=== PATIENT | female | born 1960 | race Caucasian/White ===

== ENCOUNTER 2016-06-15 19:10 | Emergency (ER) | payer OTHER ==
[2016-06-15 19:21] VITALS: TEMP 98.8; BMI 26.2
[2016-06-15] MEDS ORDERED: RANITIDINE HCL 150 MG TABLET (FP) PO ONE (20:30)
[2016-06-15] MEDS ORDERED: traMADol HCL 50 MG TABLET PO ONE (20:30)
[2016-06-15] MEDS ORDERED: MAG HYDROX/AL HYDROX/SIMETH 30 ML UNIT-DOSE CUP PO ONE (20:30)
[2016-06-15] MEDS ORDERED: ACETAMINOPHEN 325 MG TABLET (FP) PO ONE (20:30)
--- NOTE | 2016-06-15 20:53 | PDOC ---
History of Present Illness - General History Source: Patient, Family Exam Limitations: No Limitations <Austyn Maldonado - Last Filed: 06/15/16 21:36> - History of Present Illness Initial Comments: 06/15/16 21:52 The patient is a 55 year old female with history of hypertension who presents to the ED complaining of 1 day of right clavicular pain, worse with rotating her neck. She states she took Diclofenac yesterday but discontinued it due to epigastric discomfort. The patient denies chest pain, shortness of breath, or palpitations. She denies fever, chills, or recent illness. She denies nausea, vomiting, or diarrhea. <Jovita Macedo - Last Filed: 06/15/16 21:55> - General Chief Complaint: Pain, Acute Stated Complaint: NECK PAIN Time Seen by Provider: 06/15/16 19:26 Past History - Past Medical History HTN: Yes - Psycho/Social/Smoking Cessation Hx Suicidal Ideation: No Smoking History: Never smoked <Austyn Maldonado - Last Filed: 06/15/16 21:36> <Jovita Macedo - Last Filed: 06/15/16 21:55> - Past Medical History Allergies/Adverse Reactions: Allergies Allergy/AdvReac Type Severity Reaction Status Date / Time aspirin AdvReac Verified 06/15/16 19:22 Home Medications: Ambulatory Orders Mag Hydrox/Al Hydrox/Simeth [Mylanta Suspension -] 30 ml PO Q6H PRN #1 bottle Ranitidine HCl [Zantac] 150 mg PO BID PRN #14 tablet 06/15/16 Tramadol HCl 50 mg PO Q6H PRN #20 tablet MDD 4 06/15/16 Review of Systems - Review of Systems Able to Perform ROS?: Yes Comments:: 06/15/16 21:54 GENERAL/CONSTITUTIONAL: No fever or chills. No weakness. HEAD, EYES, EARS, NOSE AND THROAT: No change in vision. No ear pain or discharge. No sore throat CARDIOVASCULAR: No chest pain or shortness of breath. RESPIRATORY: No cough, wheezing, or hemoptysis. GASTROINTESTINAL: No nausea, vomiting, diarrhea or constipation. GENITOURINARY: No dysuria, frequency, or change in urination. MUSCULOSKELETAL: R clavicular pain. No other joint or muscle swelling or pain. No back pain. SKIN: No rash NEUROLOGIC: No headache, vertigo, loss of consciousness, or change in strength/ sensation. ENDOCRINE: No increased thirst. No abnormal weight change. HEMATOLOGIC/LYMPHATIC: No anemia, easy bleeding, or history of blood clots. ALLERGIC/IMMUNOLOGIC: No hives or skin allergy. <Jovita Macedo - Last Filed: 06/15/16 21:55> *Physical Exam - Vital Signs Last Vital Signs Temp Pulse Resp BP Pulse Ox 98.8 F 67 18 118/79 98 06/15/16 19:16 06/15/16 19:16 06/15/16 19:16 06/15/16 19:16 06/15/16 19:16 <Austyn Maldonado - Last Filed: 06/15/16 21:36> - Vital Signs Last Vital Signs Temp Pulse Resp BP Pulse Ox 98.8 F 67 18 118/79 98 06/15/16 19:16 06/15/16 19:16 06/15/16 19:16 06/15/16 19:16 06/15/16 19:16 - Physical Exam Comments: 06/15/16 21:54 GENERAL: Awake, alert, and fully oriented, in no acute distress HEAD: No signs of trauma EYES: PERRLA, EOMI, sclera anicteric, conjunctiva clear ENT: Auricles normal inspection, hearing grossly normal, nares patent, oropharynx clear without exudates. Moist mucosa NECK: Normal ROM, supple, no lymphadenopathy, JVD, or masses LUNGS: Breath sounds equal, clear to auscultation bilaterally. No wheezes, and no crackles HEART: Tenderness to palpation of the right proximal clavicle. Regular rate and rhythm, normal S1 and S2, no murmurs, rubs or gallops ABDOMEN: Soft, nontender, normoactive bowel sounds. No guarding, no rebound. No masses EXTREMITIES: Normal range of motion, no edema. No clubbing or cyanosis. No cords, erythema, or tenderness NEUROLOGICAL: Cranial nerves II through XII grossly intact. Normal speech, normal gait SKIN: Warm, Dry, normal turgor, no rashes or lesions noted. <Jovita Macedo - Last Filed: 06/15/16 21:55> ED Treatment Course - Medications Given in the ED: ED Medications Discontinued Medications Generic Name Dose Route Start Last Admin Trade Name Tommy PRN Reason Stop Dose Admin Acetaminophen 650 mg 06/15/16 20:30 06/15/16 20:50 Tylenol - PO 06/15/16 20:31 650 mg ONCE ONE Administration Al Hydroxide/Mg Hydroxide 30 ml 06/15/16 20:30 06/15/16 20:50 Mylanta Oral Suspension - PO 06/15/16 20:31 30 ml ONCE ONE Administration Ranitidine HCl 150 mg 06/15/16 20:30 06/15/16 20:50 Zantac - PO 06/15/16 20:31 150 mg ONCE ONE Administration Tramadol HCl 50 mg 06/15/16 20:30 06/15/16 20:50 Ultram - PO 06/15/16 20:31 50 mg ONCE ONE Administration <Jovita Macedo - Last Filed: 06/15/16 21:55> Medical Decision Making - Medical Decision Making 06/15/16 20:34 A portion of this note was documented by scribe services under my direction. I have reviewed the details of the note, within reason, and agree with the documentation with the following case summary and management plan written by me. Patient treated in the ED. Nursing notes are reviewed and incorporated into the medical decision-making. Vital signs reviewed. Peripheral IV access obtained by the nurse, laboratory studies are drawn and sent, reviewed and interpreted by myself. Vital Signs Temp Pulse Resp BP Pulse Ox 98.8 F 67 18 118/79 98 06/15/16 19:16 06/15/16 19:16 06/15/16 19:16 06/15/16 19:16 06/15/16 19:16 55 year old female with history of HTN presents with proximal clavical pain. Pt reports that she woke up with pain that was reproducible with palpation and movement. Denies shortness of breath, diaphoresis, vomiting. Reports turning neck intermittently causes pain. Has taken NSAIDs with minimal relief. This appears consistent with musculoskeltal pain. Patient reports that she had acid reflux with NSAIDS. will trial tramadol and GERD medications and reassess. 06/15/16 21:31 Patient reports feeling better with the medications. I discussed the physical exam findings, ancillary test results and final diagnoses with the patient. I answered all of the patient's questions. The patient was satisfied with the care received and felt comfortable with the discharge plan and treatment plan. The patient will call their primary care physician within 24 hours to arrange follow-up and will return to the Emergency Department with any new, persistant or worsening symptoms. <Austyn Maldonado - Last Filed: 06/15/16 21:36> *DC/Admit/Observation/Transfer - Discharge Dispostion Admit: No <Austyn Maldonado - Last Filed: 06/15/16 21:36> - Attestations Scribe Attestion: 06/15/16 21:55 Documentation prepared by Jovita Macedo, acting as lead medical technologist for Austyn Maldonado MD. <Jovita Macedo - Last Filed: 06/15/16 21:55> Diagnosis at time of Disposition: Pain of right clavicle - Discharge Dispostion Disposition: HOME Condition at time of disposition: Improved - Prescriptions Prescriptions: Mag Hydrox/Al Hydrox/Simeth [Mylanta Suspension -] 30 ml PO Q6H PRN #1 bottle PRN Reason: Abdominal Pain Tramadol HCl 50 mg PO Q6H PRN #20 tablet MDD 4 PRN Reason: Pain Ranitidine HCl [Zantac] 150 mg PO BID PRN #14 tablet PRN Reason: Abdominal Pain - Referrals Referrals: STAFF,NOT ON [Primary Care Provider] - - Patient Instructions Printed Discharge Instructions: DI for Musculoskeletal Pain Additional Instructions: You may take 50 mg tramadol every 6 hours as needed for pain. This medicine may cause more acid reflux. Take the zantac and/or maalox as prescribed as needed. It may take several days before your symptoms improve. Print Language: MALTESE
[2016-06-15] MEDS ORDERED: ACETAMINOPHEN 325 MG TABLET (FP) ONE (20:55)
[2016-06-15] MEDS ORDERED: traMADol HCL 50 MG TABLET ONE (20:56)
[2016-06-15] MEDS ORDERED: MAG HYDROX/AL HYDROX/SIMETH 30 ML UNIT-DOSE CUP ONE (20:56)
[2016-06-15] MEDS ORDERED: RANITIDINE HCL 150 MG TABLET (FP) ONE (20:56)
[2016-06-15 21:56] VITALS: BP 125/65; PULSE 69
== END 2016-06-15 21:56 | disposition home or self-care (01) ==
LOC: JER 19:10
DX: M25.511 Pain in right shoulder (principal)
CPT/HCPCS: 99282-25

== ENCOUNTER 2016-11-23 02:22 | Inpatient (IN) | payer OTHER ==
--- NOTE | 2016-11-23 02:52 | PDOC ---
History of Present Illness - General Chief Complaint: SIRS, Suspected/Possible Stated Complaint: FEVER,PAIN Time Seen by Provider: 11/23/16 02:34 Past History - Past Medical History Allergies/Adverse Reactions: Allergies Allergy/AdvReac Type Severity Reaction Status Date / Time aspirin AdvReac Verified 11/23/16 02:39 Home Medications: Ambulatory Orders Atenolol/Chlorthalidone [Tenoretic 100 Tablet] 1 each PO DAILY 11/23/16 Metformin HCl 850 mg PO DAILY 11/23/16 HTN: Yes - Psycho/Social/Smoking Cessation Hx Suicidal Ideation: No Smoking History: Never smoked Have you smoked in the past 12 months: No Information on smoking cessation initiated: No Hx Alcohol Use: No Drug/Substance Use Hx: No *Physical Exam - Vital Signs Last Vital Signs Temp Pulse Resp BP Pulse Ox 102.6 F H 84 20 115/85 96 11/23/16 02:39 11/23/16 02:39 11/23/16 02:39 11/23/16 02:39 11/23/16 02:39 ED Treatment Course - LABORATORY CBC & Chemistry Diagram: 11/23/16 03:31 11/23/16 03:31 Medical Decision Making - Medical Decision Making 11/23/16 06:51 Pt comes with fever, joint pains, rash. Traveling in for the past 2 months. States that she has been feeling worse for the past 3 days. She still has UA pending, and peripheral blood smear pending. We sent off zika serology testing, but that will be sent out. Pt has hypokalemia on labs. She reports decreased appetite. She will be hydrated and teated with analgesics and she will be signed out to the day team, who can consult with ID. CXRs normal *DC/Admit/Observation/Transfer Diagnosis at time of Disposition: Fever, Polyarthritis, Nausea, Rash - Discharge Dispostion Condition at time of disposition: Guarded
[2016-11-23] MEDS ORDERED: ACETAMINOPHEN 325 MG TABLET (FP) PO ONE (03:12)
[2016-11-23] MEDS ORDERED: ACETAMINOPHEN 325 MG TABLET (FP) ONE (03:18)
--- NOTE | 2016-11-23 03:34 | PDOC ---
History of Present Illness - General Chief Complaint: SIRS, Suspected/Possible Stated Complaint: FEVER,PAIN Time Seen by Provider: 11/23/16 02:34 History Source: Patient Exam Limitations: Language Barrier - History of Present Illness Initial Comments: 11/23/16 03:25 Patient is a 56F with history of HTN here today complaining of fever for the past month. She has spent the last 3 months in the [place], returning today. She has been getting about one fever per day. She also has associated rash on her face and arms. She also has joint pain in her knees, wrists, and elbows. She denies chest pain, shortness of breath, cough, headache , neck pain, and dysuria. She endorses decreased PO intake and an unknown amount of unintentional weight loss. Past History - Past Medical History Allergies/Adverse Reactions: Allergies Allergy/AdvReac Type Severity Reaction Status Date / Time aspirin AdvReac Verified 11/23/16 02:39 Home Medications: Ambulatory Orders Atenolol/Chlorthalidone [Tenoretic 100 Tablet] 1 each PO DAILY 11/23/16 Metformin HCl 850 mg PO DAILY 11/23/16 HTN: Yes - Psycho/Social/Smoking Cessation Hx Suicidal Ideation: No Smoking History: Never smoked Have you smoked in the past 12 months: No Information on smoking cessation initiated: No Hx Alcohol Use: No Drug/Substance Use Hx: No Review of Systems - Review of Systems Comments:: 11/23/16 03:34 GENERAL/CONSTITUTIONAL: Positive for fevers, chills and weakness HEAD, EYES, EARS, NOSE AND THROAT: No change in vision. No sore throat. CARDIOVASCULAR: No chest pain or shortness of breath RESPIRATORY: No cough, wheezing, or hemoptysis. GASTROINTESTINAL: Positive for nausea. Negative for vomiting, diarrhea or constipation. GENITOURINARY: No dysuria, frequency, or change in urination. MUSCULOSKELETAL: Positive for knee, wrist, and elbow pain SKIN: Positive for rash on face, and arms NEUROLOGIC: No headache, loss of consciousness, or change in strength/sensation. ENDOCRINE: Positive for abnormal weight loss ALLERGIC/IMMUNOLOGIC: Positive for possible skin allergy resulting in rash *Physical Exam - Vital Signs Last Vital Signs Temp Pulse Resp BP Pulse Ox 102.6 F H 84 20 115/85 96 11/23/16 02:39 11/23/16 02:39 11/23/16 02:39 11/23/16 02:39 11/23/16 02:39 - Physical Exam Comments: 11/23/16 03:36 GENERAL: Awake, alert, and fully oriented, in no acute distress HEAD: No signs of trauma, normocephalic, atraumatic, malar rash EYES: PERRLA, EOMI, sclera mildy icteric, conjunctiva red ENT: Auricles normal inspection, hearing grossly normal, nares patent, oropharynx clear without exudates. Moist mucosa NECK: Normal ROM, supple, nontender to palpation, touches chin to chest without pain LUNGS: No distress, speaks full sentences, clear to auscultation bilaterally HEART: Regular rate and rhythm, normal S1 and S2, no murmurs, rubs or gallops, peripheral pulses normal and equal bilaterally. ABDOMEN: Soft, nontender, normoactive bowel sounds. No guarding, no rebound. No masses EXTREMITIES: Rash on dorsal aspect of both forearms NEUROLOGICAL: Cranial nerves II through XII grossly intact. Normal speech, no focal sensorimotor deficits SKIN: Warm, Dry, normal turgor ED Treatment Course - LABORATORY CBC & Chemistry Diagram: 11/23/16 03:31 11/23/16 03:31 - RADIOLOGY Radiology Studies Ordered: Category Date Time Status CHEST X-RAY PORTABLE* [RAD] Stat Radiology 11/23/16 03:08 Ordered Medical Decision Making - Medical Decision Making 11/23/16 03:38 Patient is a 56F with history of HTN here today complaining of intermittent fever for the past month. Recent travel to area with zika and malaria for an extended period. Febrile in the ED, vital signs otherwise stable and normal. Differential diagnosis is broad, and includes, but is not limited to: zika, malaria, uti, pneumonia. Will evaluate with labs, cxr, ecg. Will treat with tylenol. 11/23/16 04:18 EKG showed normal sinus rhythm, normal rate, normal axis. No st elevations, but did show ST inversions in II, II, V3-V5. Trop added on to labs. 11/23/16 07:01 Labs show liver enzyme elevations, K - 3.1. CXR shows no acute cardiopulmonary process. Signed out to Dr Petty. *DC/Admit/Observation/Transfer Diagnosis at time of Disposition: Fever
[2016-11-23 03:51] LABS: BASOPHIL 0.1 % (0-2.0); EOSINOPHIL 0.5 % (0-4.5); MCH 30.7 pg (25.7-33.7); MCHC 35.5 g/dl (32.0-36.0); MEAN CELL VOLUME 86.5 fl (80-96); MEAN PLT VOLUME 8.3 fl (7.5-11.1); NEUTROPHILS 77.3 % (42.8-82.8); PLATELET COUNT 277 K/MM3 (134-434); RDW 13.3 % (11.6-15.6); WHITE BLOOD COUNT 8.7 K/mm3 (4.0-10.0)
[2016-11-23 04:07] LABS: INR 1.36 (0.82-1.09); PROTHROMBIN TIME (PATIENT) 15.1 SEC (9.98-11.88)
[2016-11-23 04:21] LABS: ALBUMIN 3.6 g/dl (3.4-5.0); ALK PHOS 76 U/L (45-117); ANION GAP 13 (8-16); BILIRUBIN,TOTAL 0.8 mg/dL (0.2-1.0); CALCIUM 8.7 mg/dL (8.5-10.1); CO2 27 mmol/L (21-32); CREATININE 0.9 mg/dL (0.55-1.02); GLUCOSE,RANDOM 125 mg/dL (74-106); SGOT/AST 64 U/L (15-37); SGPT/ALT 115 U/L (12-78); TOT PROT 7.9 g/dl (6.4-8.2)
[2016-11-23 04:34] LABS: CPK 68 IU/L (26-192); TROPONIN I < 0.02 ng/ml (0.00-0.05)
[2016-11-23] MEDS ORDERED: MAGNESIUM SULF 50% (8.12 MEQ/2 ML-1 GM VIAL) IVPB ONE (04:46)
[2016-11-23] MEDS ORDERED: POTASSIUM CHLORIDE TABS 20 MEQ TABLET.ER (FP) PO ONE ×3 (04:46→05:36)
[2016-11-23] MEDS ORDERED: MAGNESIUM SULF 50% (8.12 MEQ/2 ML-1 GM VIAL) ONE (05:24)
[2016-11-23] MEDS ORDERED: SODIUM CHLORIDE 0.9% 500 ML INFUS.BAG IV ONE (06:48)
[2016-11-23] MEDS ORDERED: ACETAMINOPHEN 1000 MG/100 ML VIAL (NON FORMULARY) IVPB ONE (06:48)
[2016-11-23] MEDS ORDERED: ACETAMINOPHEN INJECTION 100 ML IVPB ONE (06:48)
--- NOTE | 2016-11-23 07:07 | PDOC ---
*Physical Exam - Vital Signs Patient signed out to me by excellent Dr. Waldo Shaw. 56 YOF returned in the past few days from three months in the [place], p/w fever occurring daily , polyarthritis, rash on face, arms, and trunk, decreased appetite, nausea, small weight loss. After sign out patient is noting pain in her fingers as well now. Last Vital Signs Temp Pulse Resp BP Pulse Ox 100.0 F H 79 18 114/73 100 11/23/16 06:34 11/23/16 06:34 11/23/16 06:34 11/23/16 06:34 11/23/16 06:34 11/23/16 09:37 - Physical Exam General Appearance: Yes: Nourished, Other (initially sleeping on left side in hospital bed but awakens easily). No: Apparent Distress HEENT: positive: EOMI, Normal Voice, Pharyngeal Erythema, Hearing Grossly Normal , Other. negative: Scleral Icterus (R), Scleral Icterus (L), Nasal Congestion Neck: positive: Trachea midline, Supple. negative: Tender, Rigid Respiratory/Chest: positive: Lungs Clear, Normal Breath Sounds. negative: Respiratory Distress, Crackles, Rhonchi, Stridor, Wheezing Cardiovascular: positive: Regular Rhythm, Regular Rate. negative: Murmur Gastrointestinal/Abdominal: positive: Normal Bowel Sounds, Soft, Other (faint red diffuse patchy rash). negative: Tender, Organomegaly, Pulsatile Mass, Guarding Musculoskeletal: positive: Normal Inspection. negative: Decreased Range of Motion, Vertebral Tenderness Extremity: positive: Normal Capillary Refill, Normal Inspection, Normal Range of Motion, Other (pain on ROM of fingers bilaterally, right wrist, and right elbow). negative: Tender, Cyanosis Integumentary: positive: Normal Color, Dry, Warm, Erythema (3x3cm area of erythema to right distal forearm (Pt states she had allergy testing here)), Rash (faint red patchy rash diffusely on abdomen). negative: Jaundice, Bruising Neurologic: positive: public health II-XII NML intact, Fully Oriented, Alert, Normal Mood/ Affect, Normal Response, Motor Strength /5 ED Treatment Course - LABORATORY CBC & Chemistry Diagram: 11/24/16 06:00 11/24/16 06:00 - ADDITIONAL ORDERS Additional order review: Laboratory Results 11/23/16 11/23/16 11/23/16 03:31 03:31 03:31 INR 1.36 H Sodium 136 Potassium 3.1 L Chloride 96 L Carbon Dioxide 27 Anion Gap 13 BUN 9 Creatinine 0.9 Creat Clearance w eGFR > 60 Random Glucose 125 H Calcium 8.7 Total Bilirubin 0.8 AST 64 H ALT 115 H Alkaline Phosphatase 76 Creatine Kinase 68 Troponin I < 0.02 Total Protein 7.9 Albumin 3.6 11/23/16 03:31 RBC 4.33 MCV 86.5 MCHC 35.5 RDW 13.3 MPV 8.3 Neutrophils % 77.3 Lymphocytes % 12.8 Monocytes % 9.3 Eosinophils % 0.5 Basophils % 0.1 - Medications Given in the ED: ED Medications Discontinued Medications Generic Name Dose Route Start Last Admin Trade Name Tommy PRN Reason Stop Dose Admin Acetaminophen 650 mg 11/23/16 03:12 11/23/16 03:18 Tylenol - PO 11/23/16 03:13 650 mg ONCE ONE Administration Acetaminophen 1,000 mg 11/23/16 06:48 11/23/16 06:54 Ofirmev Injection - IVPB 11/23/16 06:49 1,000 mg ONCE ONE Administration Magnesium Sulfate 2 gm 11/23/16 04:46 11/23/16 05:40 Magnesium Sulfate IVPB 11/23/16 04:47 2 gm ONCE ONE Administration Potassium Chloride 40 meq 11/23/16 04:46 11/23/16 05:40 K-Dur - PO 11/23/16 04:47 40 meq ONCE ONE Administration Sodium Chloride 1,000 ml 11/23/16 06:48 11/23/16 06:54 Normal Saline - IV 11/23/16 06:49 1,000 ml ONCE ONE Administration Medical Decision Making - Medical Decision Making 56 YOF [place] with 1 month of daily fever, now rash, polyarthritis, decreased appetite. DDX includes SLE, zika, malaria, typhoid/paratyphoid, chikunguya, viral exanthum , unlikely allergic reaction. Will consult this AM with ID, possible admission to obs as Pt is not taking PO and has recurrent fever in ED. After Tylenol Pt reports improved fever, still with articular pain now in fingers. Pt states that she could eat something and is given a sandwich. UA returns with 1+ blood and 1+ leukocyte esterase. Page is placed to ID. 11/23/16 12:30 Dr. Tello kindly consults in the ED and does recommend IVF and admission. ID will follow during her admission. *DC/Admit/Observation/Transfer Diagnosis at time of Disposition: Polyarthritis, Nausea, Rash Fever Qualifiers: Fever type: unspecified Qualified Code(s): R50.9 - Fever, unspecified - Discharge Dispostion Condition at time of disposition: Guarded Admit: Yes - Referrals
--- NOTE | 2016-11-23 09:16 | EKG ---
Test Reason : Blood Pressure : / mmHG Vent. Rate : 082 BPM Atrial Rate : 082 BPM P-R Int : 150 ms QRS Dur : 076 ms QT Int : 362 ms P-R-T Axes : 045 003 000 degrees QTc Int : 422 ms NORMAL SINUS RHYTHM POSSIBLE LEFT ATRIAL ENLARGEMENT LEFT VENTRICULAR HYPERTROPHY ABNORMAL ECG NO PREVIOUS ECGS AVAILABLE Confirmed by MD BETH, KATIA ([id number]) on 11/23/2016 9:16:41 AM Referred By: Confirmed By:KATIA CAMPOS MD
[2016-11-23 09:44] LABS: URINE APPEARANCE CLEAR; URINE BILIRUBIN NEGATIVE (NEGATIVE); URINE BLOOD 1+ (NEGATIVE); URINE COLOR LTYELLOW; URINE GLUCOSE (UA) NEGATIVE (NEGATIVE); URINE KETONE NEGATIVE (NEGATIVE); URINE NITRITE NEGATIVE (NEGATIVE); URINE PROTEIN NEGATIVE (NEGATIVE); URINE UROBILINOGEN NEGATIVE mg/dL (0.2-1.0)
[2016-11-23 09:47] LABS: URINE LEUK ESTERASE 1+ (NEGATIVE)
[2016-11-23 09:55] LABS: URINE HYALINE CAST 1 /lpf; URINE MUCUS RARE; URINE RBC 1 /hpf (0-3); URINE WBC 11 /hpf (3-5)
[2016-11-23] MEDS ORDERED: SODIUM CHLORIDE 1,000 ML IV STA (11:14)
--- NOTE | 2016-11-23 15:03 | CON.ID ---
Consult Consult Specialty:: infectious diseases Reason for Consultation:: fever,rash - History of Present Illness Chief Complaint: fever and rash History of Present Illness: 56F with history of HTN DM after being in [facility] for about the last 2 months. a month into her trip she started to have fevers and chills. The fevers were happening everyday for the past month. the joint pain in the small joints of her hands her wrists hips and knees started at the same time of the fever. a few days later she developed what she describes as a macular rash which started on her face moved to her trunk and then her upper and lower extremities. She denies morning stiffness. She was hospitalized in [facility] treated with ampicillin and discharged with a negative work up per the daughter patient came here because she had 14 days of fever straight - History Source History Provided By: Patient Limitations to Obtaining History: Language Barrier - Alcohol/Substance Use Hx Alcohol Use: No - Smoking History Smoking history: Never smoked Have you smoked in the past 12 months: No Home Medications - Allergies Allergies/Adverse Reactions: Allergies Allergy/AdvReac Type Severity Reaction Status Date / Time aspirin AdvReac Verified 11/23/16 02:39 - Home Medications Home Medications: Ambulatory Orders Atenolol/Chlorthalidone [Tenoretic 100 Tablet] 1 each PO DAILY 11/23/16 Metformin HCl 850 mg PO DAILY 11/23/16 Review of Systems - Review of Systems Constitutional: reports: Chills, Fever Neck: reports: No Symptoms Cardiovascular: reports: No Symptoms Respiratory: reports: No Symptoms Gastrointestinal: reports: No Symptoms Genitourinary: reports: No Symptoms Musculoskeletal: reports: Joint Pain Integumentary: reports: Rash Neurological: reports: No Symptoms Endocrine: reports: No Symptoms Hematology/Lymphatic: reports: No Symptoms Psychiatric: reports: No Symptoms Physical Exam Vital Signs: Vital Signs Temperature 98.2 F 11/23/16 14:31 Pulse Rate 69 11/23/16 14:31 Respiratory Rate 18 11/23/16 14:31 Blood Pressure 108/68 11/23/16 14:31 O2 Sat by Pulse Oximetry (%) 100 11/23/16 14:31 Constitutional: Yes: Well Nourished, No Distress, Calm Eyes: Yes: Conjunctiva Clear HENT: Yes: Atraumatic Neck: Yes: Supple, Trachea Midline Cardiovascular: Yes: Regular Rate and Rhythm Respiratory: Yes: Regular, CTA Bilaterally Gastrointestinal: Yes: Normal Bowel Sounds, Soft Musculoskeletal: Yes: Other (joint pain) Integumentary: Yes: Rash (fading rash on the trunk) Neurological: Yes: Alert, Oriented Psychiatric: Yes: Alert, Oriented Imaging - Results Chest X-ray: Report Reviewed, Image Reviewed Ultrasound: Report Reviewed, Image Reviewed Assessment/Plan after looking at ther history\my primary diagnosis is viral fever in order it will be viral fever dengue [place] malaria bacterial all her blood cx have been send plan will not start any abx hydration rest as per primary team
--- NOTE | 2016-11-23 16:43 | HP ---
CHIEF COMPLAINT:fever and joint pain HISTORY OF PRESENT ILLNESS: 56F with history of HTN DM presents to the ED straight from the airport after being in [facility] for about the last 2 months. a month into her trip she started to have fevers and chills. The fevers were happening everyday for the past month. the joint pain in the small joints of her hands her wrists hips and knees started at the same time of the fever. a few days later she developed what she describes as a macular rash which started on her face moved to her trunk and then her upper and lower extremities. She denies morning stiffness. She was hospitalized in [facility] treated with ampicillin and discharged with a negative work up per the daughter they did many blood tests and everything was negative. Patient states she was allergic to penicillin and her rash got worse after ampicillin but the rash was definitely there prior to being given ampicillin. She denies nausea vomiting chest pain shortness of breath. Denies urinary or GI symptoms. denies being around sick contacts or anyone with similar illness. she denies visual changes or neck stiffness. Denies cough. Denies recent insect bites. In ED fever was 102.6. ER course was notable for: (1)tylenol (2)IVF CXR Recent Travel:to [facility] just returned 1 day ago PAST MEDICAL HISTORY:DM HTN PAST SURGICAL HISTORY:Denies Social History: Smoking:Denies Alcohol:Denies Drugs: Denies Allergies aspirin Adverse Reaction (Verified 11/23/16 02:39) HOME MEDICATIONS: Home Medications Medication Instructions Recorded Atenolol/Chlorthalidone [Tenoretic 1 each PO DAILY 11/23/16 100 Tablet] Metformin HCl 850 mg PO DAILY 11/23/16 REVIEW OF SYSTEMS CONSTITUTIONAL: Absent: loss of appetite, weight change Present: fever, chills, diaphoresis, generalized weakness, malaise, HEENT: Absent: rhinorrhea, nasal congestion, throat pain, throat swelling, difficulty swallowing, mouth swelling, ear pain, eye pain, visual changes CARDIOVASCULAR: Absent: chest pain, syncope, palpitations, irregular heart rate, lightheadedness , peripheral edema RESPIRATORY: Absent: cough, shortness of breath, dyspnea with exertion, orthopnea, wheezing, stridor, hemoptysis GASTROINTESTINAL: Absent: abdominal pain, abdominal distension, nausea, vomiting, diarrhea, constipation, melena, hematochezia GENITOURINARY: Absent: dysuria, frequency, urgency, hesitancy, hematuria, flank pain, genital pain MUSCULOSKELETAL: Absent: back pain, neck pain Present: myalgia, arthralgia, joint swelling, SKIN: Absent: itching, pallor Present: rash HEMATOLOGIC/IMMUNOLOGIC: Absent: easy bleeding, easy bruising, lymphadenopathy, frequent infections ENDOCRINE: Absent: unexplained weight gain, unexplained weight loss, heat intolerance, cold intolerance NEUROLOGIC: Absent: headache, focal weakness or paresthesias, dizziness, unsteady gait, seizure, mental status changes, bladder or bowel incontinence PSYCHIATRIC: Absent: anxiety, depression, suicidal or homicidal ideation, hallucinations. PHYSICAL EXAMINATION Vital Signs - 24 hr 11/23/16 14:31 Temperature 98.2 F Pulse Rate [ 69 Apical] Respiratory 18 Rate Blood Pressure 108/68 [Left Arm] O2 Sat by Pulse 100 Oximetry (%) GENERAL: Awake, alert, and fully oriented, in no acute distress. EYES: Pupils equal, round and reactive to light, extraocular movements intact EARS, NOSE, THROAT: Moist mucous membranes. no neck stiffness or photophobia NECK: Normal range of motion, supple without lymphadenopathy, or JVD LUNGS: Breath sounds equal, clear to auscultation bilaterally. No wheezes, and no crackles. No accessory muscle use. HEART: Regular rate and rhythm, 3/6 systolic murmur at LUSB and RUSB ABDOMEN: Soft, nontender, not distended, normoactive bowel sounds, no guarding, no rebound, no masses. No hepatomegaly or splenomegaly. MUSCULOSKELETAL: Normal range of motion at all joints. No bony deformities or tenderness. No CVA tenderness. UPPER EXTREMITIES: 2+ pulses, warm, well-perfused. No cyanosis. No clubbing. No peripheral edema. LOWER EXTREMITIES: 2+ pulses, warm, well-perfused. No calf tenderness. No peripheral edema. NEUROLOGICAL: Cranial nerves II-XII intact. Normal speech. global muscle strength 5/5 sensation intact. no facial droop. reflexes knee jerk bilaterally and biceps jerk bilaterally 2+ PSYCHIATRIC: Cooperative. Good eye contact. Appropriate mood and affect. SKIN: macular rash at thigh upper extremities. no lymphadenopathy noted. Joints: inflamed PIP joints MCP joints no so inflamed. wrists inflammed. knee no effusions. CXR : CLear ASSESSMENT/PLAN: 56F with history of HTN and DM presents to the ED with polyarthralgias rash and fevers. Fevers of unknown origin in combination with polyarthralgias and inflamed joints with associated macular rash: Differential diagnosis remains very broad at this time including but not limited to Dengue fever, malaria, rheumatoid arthritis, SLE, Zika, lymphoma, endocarditis, Lyme other tick borne illnesses ehlichiosis and anaplasmosis Supportive care NSAIDs PRN IVF oliver culture follow up lyme serology DS DNA RF KEKE Echo erlichia Ab Zika serology LDH level anaplasmosis PCR parasites checked and negative hepatitis panel CBC in AM CMP in AM No indication for ABx at this time rheumatology consult Elevated LFTs/transaminitis: Trend LFTs ABD/liver US hepatitis panel check coags DM: BGM ACHS ISS ACHS hold metformin for now HTN: on IVF hold nevibolol/atenelol FEN: NS @ 100ml/hr hypokalemia given potassium in ED recheck labs in AM diabetic/low sodium diet PPx: HSQ no GI PPx indicated PT consult Visit type - Emergency Visit Emergency Visit: Yes ED Registration Date: 11/23/16 Care time: The patient presented to the Emergency Department on the above date and was hospitalized for further evaluation of their emergent condition. - New Patient This patient is new to me today: Yes Date on this admission: 11/23/16 - Critical Care Critical Care patient: No
--- NOTE | 2016-11-23 17:29 | PN ---
Teaching Attending Note Name of Resident: Amarilis Whalen ATTENDING PHYSICIAN STATEMENT I saw and evaluated the patient. I reviewed the resident's note and discussed the case with the resident. I agree with the resident's findings and plan as documented. SUBJECTIVE: CC: fever HPI: has intermittent fever 101-104 since Oct 29. lives in [place] came last night to get treated. reports n on pruritic rash that started shortly after fever in Oct , on face , lasted for a week then resolved to have similar rash on trunk and Ext. she was treated with ampicillin in , after which rash has worsened. denies any cough, diarrhea , abd pain, dysuria , PENA , visual changes, neck stiffness or pain, SOB or cough. she reports sore throat x 10 days . fever has no pattern, and rash is not associated with fever spikes. OBJECTIVE: NAD , AAOX3 HEENT: NC, AT, EOMI, round equal pupils , reactive to light. MMM. no neck stiffness. no LAP in neck. Oropharynx slightly congested but no exudate. CV: RRR, 2/6 SM at RUSBand LUSB. no JVD Lungs: CTAB ABd: soft, NT< ND , NL BS , no hepatosplenomegaly. Ext: no edema . tender slightly swollen interphalangeal joints in hands . with TTP. no kne effusions . Skin : macular rash on thighs, and lower legs , and R forearm. Neuro ; EOMI, round equal pupils, no facial droop. nl facial sensation . tongue and uvula at mid line . strength 5/5 in upper and lower ext , proximally and distally. sensation tolight touch nl. reflex 2+ biceps and knee jerk b/l ASSESSMENT AND PLAN: 56 y/o lady with h/o HTN, recently diagnosed Dm who presented with 1 mo nth of fevr 1- Fever of unknown origin: no clear source. no exudate in throat, no signs of UTI, no diarrhea or ABd pain. NO evidence of PNA . NO suspicion for TB. no signs of meningitis or [employer] pathology. in DDX : Viral ( Dunge fever). paracytes , Tick born illness (Lyme, Ehrilichiaosis ,anaplasmosis, ...) . Lymphona. - hold off ABx - follow blood and urine cx - start IVF NS - send lyme serology. - send Anaplasma PCR, Ehrilichia Abs, and Lyme Abx - follow Zika serology - tylenol for fever - hepatitis serology 2- Transaminitis likely due to infection. - check US - hepatitis serology - trend 3- HTN: hold atenolol . hold chlorthalidone . BP on lower side 4- DM: hold Metformin SSI 5- DVT px
[2016-11-23 18:05] VITALS: BMI 26.9
[2016-11-23] MEDS: SODIUM CHLORIDE 1,000 ML IV SCH (18:46)
[2016-11-23] MEDS: IBUPROFEN 400 MG TABLET (FP) PO PRN ×2 (20:41→22:29)
--- NOTE | 2016-11-23 22:08 | CONSULT ---
Consult Consult Specialty:: Rheumatology - History of Present Illness History of Present Illness: 56F with history of HTN and DM presents to the ED straight from the airport after being in [facility] for about the last 2 months. Admitted with fever, arthralgias, and skin rash. HPI. Poor historian. The patient reports a 2 week history of high fever, diffuse macular rash and arthralgia mainly in hands and knees. The joint pain was severe to the point that she was not able to walk. The pain was worse at the end of the day and she denies morning stiffness. She denies red eyes, shortness of breath, chest pain, abdominal pain or diarrhea. She was seen in a clinic in [facility], and apparently she was prescribed ampicillin, ( which she is known to be allergic) and had exacerbation of the rash. There has been no improvement since she was admitted. She denies being in contact with anybody who had similar symptoms. On admission temperature was 102.6 and today 101.0. Laboratory on admission revealed a normal CBC, creatinine 0.9, AST 64, ALT 115 and alkaline phosphatase 115. Urinalysis with LE 1+, blood 1+ and no protein. - Alcohol/Substance Use Hx Alcohol Use: No - Smoking History Smoking history: Never smoked Have you smoked in the past 12 months: No Home Medications - Allergies Allergies/Adverse Reactions: Allergies Allergy/AdvReac Type Severity Reaction Status Date / Time aspirin AdvReac Verified 11/23/16 02:39 - Home Medications Home Medications: Ambulatory Orders Atenolol/Chlorthalidone [Tenoretic 100 Tablet] 1 each PO DAILY 11/23/16 Metformin HCl 850 mg PO DAILY 11/23/16 Review of Systems - Review of Systems Constitutional: reports: Malaise Eyes: reports: No Symptoms HENT: reports: No Symptoms Neck: reports: No Symptoms Cardiovascular: reports: No Symptoms Respiratory: reports: No Symptoms Gastrointestinal: reports: No Symptoms Genitourinary: reports: No Symptoms Musculoskeletal: reports: Other (See HPI) Neurological: reports: No Symptoms Physical Exam Vital Signs: Vital Signs Temperature 101.0 F H 11/23/16 17:57 Pulse Rate 69 11/23/16 17:57 Respiratory Rate 18 11/23/16 17:57 Blood Pressure 105/51 11/23/16 17:57 O2 Sat by Pulse Oximetry (%) 100 11/23/16 17:00 Constitutional: Yes: Mild Distress Eyes: Yes: WNL HENT: Yes: WNL Neck: Yes: WNL Cardiovascular: Yes: WNL Respiratory: Yes: WNL Gastrointestinal: Yes: WNL Musculoskeletal: Yes: Other (20 swollen joints. Wrists, all metacarpo- phalangeal and proximo-interphalangeal joints were swollen.) Labs: Laboratory Tests 11/23/16 11/23/16 11/23/16 03:31 03:31 03:31 WBC 8.7 RBC 4.33 Hgb 13.3 Hct 37.5 MCV 86.5 MCH 30.7 MCHC 35.5 RDW 13.3 Plt Count 277 MPV 8.3 Neutrophils % 77.3 Lymphocytes % 12.8 Monocytes % 9.3 Eosinophils % 0.5 Basophils % 0.1 Sodium 136 Potassium 3.1 L Chloride 96 L Carbon Dioxide 27 Anion Gap 13 BUN 9 Creatinine 0.9 Creat Clearance w eGFR > 60 Random Glucose 125 H Calcium 8.7 Total Bilirubin 0.8 AST 64 H ALT 115 H Alkaline Phosphatase 76 Creatine Kinase 68 Troponin I < 0.02 Total Protein 7.9 Albumin 3.6 Urine Color Urine Appearance Urine pH Ur Specific [place] Urine Protein Urine Glucose (UA) Urine Ketones Urine Blood Urine Nitrite Urine Bilirubin Urine Urobilinogen Ur Leukocyte Esterase Urine RBC Urine WBC Ur Epithelial Cells Hyaline Casts 11/23/16 09:19 WBC RBC Hgb Hct MCV MCH MCHC RDW Plt Count MPV Neutrophils % Lymphocytes % Monocytes % Eosinophils % Basophils % Sodium Potassium Chloride Carbon Dioxide Anion Gap BUN Creatinine Creat Clearance w eGFR Random Glucose Calcium Total Bilirubin AST ALT Alkaline Phosphatase Creatine Kinase Troponin I Total Protein Albumin Urine Color Ltyellow Urine Appearance Clear Urine pH 6.0 Ur Specific [place] 1.015 Urine Protein Negative Urine Glucose (UA) Negative Urine Ketones Negative Urine Blood 1+ H Urine Nitrite Negative Urine Bilirubin Negative Urine Urobilinogen Negative Ur Leukocyte Esterase 1+ H Urine RBC 1 Urine WBC 11 Ur Epithelial Cells Rare Hyaline Casts 1 Problem List - Problems (1) Chikungunya Assessment/Plan: Probable Ch[place]unya. Based on high fever, significant arthritis and no conjunctivitis it is less likely to have Zika virus. I cannot rule out other viral or parasitic infections. It is unlikely that she has rheumatoid arthritis or other connective tissue disease. Probably the patient has had the diseasse for more than 2 weeks, therefore Dx should be with serology (and not PCR). Plan: Serology for Chikungunya. (other serology was requested). The treatment is conservative and if there is persistent arthritis, patients might need DMARD (such as Methotrexate). Increase Ibuprofen to 800 mg TID. Code(s): A92.0 - CHIKUNGUNYA VIRUS DISEASE
[2016-11-23] MEDS: HEPARIN NA (PORCINE) 5,000 UNITS/ML 1ML VIAL SQ SCH (22:24)
[2016-11-23] MEDS: INSULIN SLIDING SCALE (NOVOLOG) 1 VIAL SQ SCH (22:26)
[2016-11-23] MEDS: IBUPROFEN 400 MG TABLET (FP) PO SCH (22:30)
[2016-11-24] MEDS: HEPARIN NA (PORCINE) 5,000 UNITS/ML 1ML VIAL SQ SCH ×3 (06:50→22:09)
[2016-11-24] MEDS: IBUPROFEN 400 MG TABLET (FP) PO SCH ×4 (06:53→22:08)
[2016-11-24] MEDS: INSULIN SLIDING SCALE (NOVOLOG) 1 VIAL SQ SCH ×4 (06:53→22:13)
[2016-11-24 08:00] LABS: BASOPHIL 0.3 % (0-2.0); EOSINOPHIL 0.6 % (0-4.5); MCH 30.3 pg (25.7-33.7); MCHC 34.4 g/dl (32.0-36.0); MEAN CELL VOLUME 87.9 fl (80-96); NEUTROPHILS 72.1 % (42.8-82.8); PLATELET COUNT 245 K/MM3 (134-434); RDW 13.3 % (11.6-15.6); WHITE BLOOD COUNT 7.9 K/mm3 (4.0-10.0)
[2016-11-24 08:07] LABS: INR 1.42 (0.82-1.09); PROTHROMBIN TIME (PATIENT) 15.7 SEC (9.98-11.88)
[2016-11-24 08:10] LABS: ACTIVATED PTT 27.9 SECONDS (26.9-34.4)
[2016-11-24 08:29] LABS: ALBUMIN 2.9 g/dl (3.4-5.0); ALK PHOS 67 U/L (45-117); ANION GAP 10 (8-16); BILIRUBIN,TOTAL 0.7 mg/dL (0.2-1.0); CALCIUM 8.2 mg/dL (8.5-10.1); CO2 27 mmol/L (21-32); CREATININE 0.8 mg/dL (0.55-1.02); GLUCOSE,RANDOM 100 mg/dL (74-106); LDH 481 U/L (84-246); MAGNESIUM 1.8 mg/dL (1.8-2.4); PHOSPHOROUS 2.9 mg/dL (2.5-4.9); SGOT/AST 50 U/L (15-37); SGPT/ALT 76 U/L (12-78); TOT PROT 6.9 g/dl (6.4-8.2)
--- NOTE | 2016-11-24 15:12 | PN ---
Progress Note (short form) - Note Progress Note: Subjective cont to have fever , no abd pain or SOB . has joint pain Objective: Vital Signs: Last Vital Signs Temp Pulse Resp BP Pulse Ox 102.9 F H 77 18 139/69 98 11/24/16 13:20 11/24/16 13:15 11/24/16 13:15 11/24/16 13:15 11/24/16 05:49 Laboratory Results - last 24 hr 11/23/16 11/23/16 11/23/16 09:19 17:30 22:23 WBC RBC Hgb Hct MCV MCH MCHC RDW Plt Count MPV Neutrophils % Lymphocytes % Monocytes % Eosinophils % Basophils % INR PTT (Actin FS) Sodium Potassium Chloride Carbon Dioxide Anion Gap BUN Creatinine Creat Clearance w eGFR POC Glucometer 101 Random Glucose Lactic Acid 1.4 Calcium Phosphorus Magnesium Total Bilirubin AST ALT Alkaline Phosphatase LD Total Total Protein Albumin Urine Color Ltyellow Urine Appearance Clear Urine pH 6.0 Ur Specific [place] 1.015 Urine Protein Negative Urine Glucose (UA) Negative Urine Ketones Negative Urine Blood 1+ H Urine Nitrite Negative Urine Bilirubin Negative Urine Urobilinogen Negative Ur Leukocyte Esterase 1+ H Urine RBC 1 Urine WBC 11 Ur Epithelial Cells Rare Hyaline Casts 1 Urine Mucus Rare Rheumatoid Factor 11/24/16 11/24/16 11/24/16 06:00 06:00 06:00 WBC 7.9 RBC 3.91 Hgb 11.8 D Hct 34.4 MCV 87.9 MCH 30.3 MCHC 34.4 RDW 13.3 Plt Count 245 MPV 8.0 Neutrophils % 72.1 Lymphocytes % 16.1 D Monocytes % 10.9 H Eosinophils % 0.6 Basophils % 0.3 INR 1.42 H PTT (Actin FS) 27.9 Sodium 142 Potassium 3.2 L Chloride 105 Carbon Dioxide 27 Anion Gap 10 BUN 9 Creatinine 0.8 Creat Clearance w eGFR > 60 POC Glucometer Random Glucose 100 Lactic Acid Calcium 8.2 L Phosphorus 2.9 Magnesium 1.8 Total Bilirubin 0.7 AST 50 H D ALT 76 D Alkaline Phosphatase 67 LD Total 481 H Total Protein 6.9 Albumin 2.9 L Urine Color Urine Appearance Urine pH Ur Specific [place] Urine Protein Urine Glucose (UA) Urine Ketones Urine Blood Urine Nitrite Urine Bilirubin Urine Urobilinogen Ur Leukocyte Esterase Urine RBC Urine WBC Ur Epithelial Cells Hyaline Casts Urine Mucus Rheumatoid Factor < 10.0 11/24/16 11/24/16 06:49 11:49 WBC RBC Hgb Hct MCV MCH MCHC RDW Plt Count MPV Neutrophils % Lymphocytes % Monocytes % Eosinophils % Basophils % INR PTT (Actin FS) Sodium Potassium Chloride Carbon Dioxide Anion Gap BUN Creatinine Creat Clearance w eGFR POC Glucometer 94 87 Random Glucose Lactic Acid Calcium Phosphorus Magnesium Total Bilirubin AST ALT Alkaline Phosphatase LD Total Total Protein Albumin Urine Color Urine Appearance Urine pH Ur Specific [place] Urine Protein Urine Glucose (UA) Urine Ketones Urine Blood Urine Nitrite Urine Bilirubin Urine Urobilinogen Ur Leukocyte Esterase Urine RBC Urine WBC Ur Epithelial Cells Hyaline Casts Urine Mucus Rheumatoid Factor Physical Exam: NAD , AAOX3 MMM, no LAP . nl oropharynx CV: RRR, 2/6 SM at RUSB and LUSB. no JVD Lungs: CTAB ABd: soft, NT, ND , NL BS , no hepatosplenomegaly. Ext: no edema . tender slightly swollen interphalangeal joints in hands . with TTP. no kne effusions . Skin: no rash on LE or Upper ext today ASSESSMENT AND PLAN: 56 y/o lady with h/o HTN, recently diagnosed Dm who presented with 1 mo nth of fevr 1- Fever of unknown origin: no clear source. In DDX : Viral ( Dunge fever, CHikungunya ). paracytes , Tick born illness (Lyme , Ehrilichiaosis ,anaplasmosis, ...) . Lymphona. endocarditis - hold off ABx - follow blood cx - urine cx with low colony number of group D strep - cont IVF NS - follow Lyme serology, Ehrilichia and anaplasma results - follow Zika serology - unfortunately can't check Chikungunya and Dunge serology, and any way treatment is supportive - cont Ibuprofen - Hepatitis serology - Echo to r/o vegetation - KEKE pending . unlikely rheumatoloic disorder - check CRP - appreciate ID and Rhuem help 2- Transaminitis likely due to infection. - US with fatty infiltration - hepatitis serology pending - trend 3- HTN: hold atenolol . hold chlorthalidone . BP on lower side 4- DM: hold Metformin SSI 5- DVT px Visit type - Emergency Visit Emergency Visit: Yes ED Registration Date: 11/23/16 Care time: The patient presented to the Emergency Department on the above date and was hospitalized for further evaluation of their emergent condition. - New Patient This patient is new to me today: No - Critical Care Critical Care patient: No
[2016-11-24] MEDS ORDERED: POTASSIUM CHLORIDE TABS 20 MEQ TABLET.ER (FP) PO ONE (15:15)
--- NOTE | 2016-11-24 16:09 | PN ---
Progress Note, Physician History of Present Illness: patient stable now had fevers as high has 103 - Current Medication List Current Medications: Active Medications Heparin Sodium (Porcine) (Heparin -) 5,000 unit SQ TID [facility] Last Admin: 11/24/16 13:19 Dose: 5,000 unit Sodium Chloride (Normal Saline -) 1,000 mls @ 100 mls/hr IV ASDIR [facility] Last Admin: 11/23/16 18:46 Dose: 100 mls/hr Ibuprofen (Motrin -) 800 mg PO Q8H [facility] Last Admin: 11/24/16 14:41 Dose: Not Given Insulin Aspart (Novolog Vial Sliding Scale -) 1 vial SQ ACHS [facility] PRN Reason: Protocol Last Admin: 11/24/16 11:52 Dose: Not Given - Objective Vital Signs: Vital Signs Temperature 102.9 F H 11/24/16 13:20 Pulse Rate 77 11/24/16 13:15 Respiratory Rate 18 11/24/16 13:15 Blood Pressure 139/69 11/24/16 13:15 O2 Sat by Pulse Oximetry (%) 98 11/24/16 05:49 Constitutional: Yes: No Distress, Calm Cardiovascular: Yes: Regular Rate and Rhythm Respiratory: Yes: Regular, CTA Bilaterally Gastrointestinal: Yes: Normal Bowel Sounds, Soft Musculoskeletal: Yes: WNL Extremities: Yes: WNL Neurological: Yes: Alert, Oriented Psychiatric: Yes: Alert, Oriented Labs: CBC, BMP 11/24/16 06:00 11/24/16 06:00 INR, PTT INR 1.42 (0.82-1.09) H 11/24/16 06:00 Assessment/Plan after looking at ther history\my primary diagnosis is viral fever in order it will be viral fever dengue chickenguniya malaria bacterial patient still spiking fevers her urine has come back positive.but the count is low i am not very sure that this could be the cause and patient had received course of ampicillin h and h has dropped which i was worried about plan will hold off on starting abx if patient spikes fever again will consider very close watchon renal function and h and h if the h and h drops might need transfusion rest continue current mgmt
[2016-11-24] MEDS: SODIUM CHLORIDE 1,000 ML IV SCH ×2 (16:32→19:30)
[2016-11-25] MEDS: SODIUM CHLORIDE 1,000 ML IV SCH ×2 (06:00→17:15)
[2016-11-25] MEDS: IBUPROFEN 400 MG TABLET (FP) PO SCH ×3 (06:36→22:16)
[2016-11-25] MEDS: HEPARIN NA (PORCINE) 5,000 UNITS/ML 1ML VIAL SQ SCH ×3 (06:37→22:14)
[2016-11-25] MEDS: INSULIN SLIDING SCALE (NOVOLOG) 1 VIAL SQ SCH ×4 (06:43→22:14)
[2016-11-25 09:28] LABS: BASOPHIL 0.6 % (0-2.0); EOSINOPHIL 1.1 % (0-4.5); MCH 29.6 pg (25.7-33.7); MCHC 33.9 g/dl (32.0-36.0); MEAN CELL VOLUME 87.3 fl (80-96); MEAN PLT VOLUME 7.9 fl (7.5-11.1); PLATELET COUNT 241 K/MM3 (134-434); RDW 13.2 % (11.6-15.6); WHITE BLOOD COUNT 5.1 K/mm3 (4.0-10.0)
[2016-11-25 10:00] LABS: ALBUMIN 2.8 g/dl (3.4-5.0); ALK PHOS 64 U/L (45-117); ANION GAP 8 (8-16); BILIRUBIN,TOTAL 0.6 mg/dL (0.2-1.0); CALCIUM 8.2 mg/dL (8.5-10.1); CO2 28 mmol/L (21-32); CREATININE 0.7 mg/dL (0.55-1.02); GLUCOSE,RANDOM 101 mg/dL (74-106); SGOT/AST 56 U/L (15-37); SGPT/ALT 65 U/L (12-78); TOT PROT 6.9 g/dl (6.4-8.2)
--- NOTE | 2016-11-25 13:52 | PN ---
Progress Note, Physician History of Present Illness: patient remaining afebrile today couple of high grade spikes yesterday c/o of neck pain no headache no sweating - Current Medication List Current Medications: Active Medications Heparin Sodium (Porcine) (Heparin -) 5,000 unit SQ TID [facility] Last Admin: 11/25/16 06:37 Dose: 5,000 unit Sodium Chloride (Normal Saline -) 1,000 mls @ 100 mls/hr IV ASDIR [facility] Last Admin: 11/25/16 06:00 Dose: 100 mls/hr Ibuprofen (Motrin -) 800 mg PO Q8H [facility] Last Admin: 11/25/16 06:36 Dose: 800 mg Insulin Aspart (Novolog Vial Sliding Scale -) 1 vial SQ ACHS [facility] PRN Reason: Protocol Last Admin: 11/25/16 06:43 Dose: Not Given - Objective Vital Signs: Vital Signs Temperature 98 F 11/25/16 10:13 Pulse Rate 77 11/25/16 10:13 Respiratory Rate 18 11/25/16 10:13 Blood Pressure 117/68 11/25/16 10:13 O2 Sat by Pulse Oximetry (%) 96 11/25/16 05:50 Constitutional: Yes: No Distress, Calm Cardiovascular: Yes: Regular Rate and Rhythm Respiratory: Yes: Regular, CTA Bilaterally Gastrointestinal: Yes: Normal Bowel Sounds, Soft Musculoskeletal: Yes: WNL Extremities: Yes: WNL Neurological: Yes: Alert, Oriented Psychiatric: Yes: Alert, Oriented Labs: CBC, BMP 11/25/16 08:00 11/25/16 08:00 INR, PTT INR 1.42 (0.82-1.09) H 11/24/16 06:00 Assessment/Plan after looking at ther history\my primary diagnosis is viral fever in order it will be viral fever dengue chickenguniya malaria bacterial plan will continue to monitor will see how the fever pattern plays out continue to monitor h and h rest as per primary
--- NOTE | 2016-11-25 15:34 | PN ---
Physical Exam: SUBJECTIVE: Patient seen and examined Patient seen this am. Afebrile. OBJECTIVE: Vital Signs Period Temp Pulse Resp BP Sys/Carcamo Pulse Ox Last 24 Hr 98 F-99.6 F 66-87 18-18 117-133/61-77 96-96 GENERAL: The patient is awake, alert, and fully oriented, in no acute distress. EYES: PERRL, extraocular movements intact, sclera anicteric, conjunctiva clear. ENT: moist mucous membranes. LUNGS: Breath sounds equal, clear to auscultation bilaterally, no wheezes, no crackles, no accessory muscle use. HEART: Regular rate and rhythm, S1, S2, systolic murmur 3/6 Lsternal border. ABDOMEN: Soft, nontender, nondistended, normoactive bowel sounds, no guarding, no rebound EXTREMITIES: 2+ pulses, warm, well-perfused, no edema. NEUROLOGICAL: Normal speech, gait not observed. PSYCH: Normal mood, normal affect. SKIN: Warm, dry, normal turgor, no rashes or lesions noted Laboratory Results - last 24 hr 11/24/16 11/24/16 11/24/16 06:00 15:42 16:58 WBC RBC Hgb Hct MCV MCH MCHC RDW Plt Count MPV Neutrophils % Lymphocytes % Monocytes % Eosinophils % Basophils % Sodium Potassium Chloride Carbon Dioxide Anion Gap BUN Creatinine Creat Clearance w eGFR POC Glucometer 131 Random Glucose Calcium Total Bilirubin AST ALT Alkaline Phosphatase C-Reactive Protein 16.5 H Total Protein Albumin Double Strand DNA Ab <1 11/24/16 11/25/16 11/25/16 22:12 06:39 08:00 WBC RBC Hgb Hct MCV MCH MCHC RDW Plt Count MPV Neutrophils % Lymphocytes % Monocytes % Eosinophils % Basophils % Sodium 140 Potassium 3.3 L Chloride 104 Carbon Dioxide 28 Anion Gap 8 BUN 8 Creatinine 0.7 Creat Clearance w eGFR > 60 POC Glucometer 122 97 Random Glucose 101 Calcium 8.2 L Total Bilirubin 0.6 AST 56 H ALT 65 Alkaline Phosphatase 64 C-Reactive Protein Total Protein 6.9 Albumin 2.8 L Double Strand DNA Ab 11/25/16 11/25/16 08:00 12:02 WBC 5.1 D RBC 3.88 Hgb 11.5 Hct 33.8 MCV 87.3 MCH 29.6 MCHC 33.9 RDW 13.2 Plt Count 241 MPV 7.9 Neutrophils % 63.0 Lymphocytes % 25.0 D Monocytes % 10.3 H Eosinophils % 1.1 D Basophils % 0.6 Sodium Potassium Chloride Carbon Dioxide Anion Gap BUN Creatinine Creat Clearance w eGFR POC Glucometer 92 Random Glucose Calcium Total Bilirubin AST ALT Alkaline Phosphatase C-Reactive Protein Total Protein Albumin Double Strand DNA Ab Active Medications Generic Name Dose Route Start Last Admin Trade Name Freq PRN Reason Stop Dose Admin Heparin Sodium (Porcine) 5,000 unit 11/23/16 22:00 11/25/16 14:15 Heparin - SQ 5,000 unit TID JOAQUÍN Administration Sodium Chloride 1,000 mls @ 100 mls/hr 11/23/16 17:15 11/25/16 06:00 Normal Saline - IV 100 mls/hr ASDIR JOAQUÍN Administration Ibuprofen 800 mg 11/23/16 22:30 11/25/16 14:15 Motrin - PO 800 mg Q8H JOAQUÍN Administration Insulin Aspart 1 vial 11/23/16 22:00 11/25/16 14:16 Novolog Vial Sliding Scale - SQ Not Given ACHS JOAQUÍN Protocol ASSESSMENT/PLAN: 56 y/o lady with h/o HTN, recently diagnosed Dm who presented with 1 month of fevr #Fever of unknown origin: no clear source, Afebrile today Elevated CRP In DDX : as per ID Viral Dungue fever- serologies pending CHikungunya - serologies pending Zika serology- pending Supportive care- - cont Ibuprofen parasites- Malaria - blood smear- negative Tick borne illness Lyme- pending Ehrilichiosis -pending anaplasmosis- pending Lymphoma- CBCD within normal limits Endocarditis - blood cultures - no growth Awaiting echo Secondary syphilis Sexually active in a distant relationship with her (in [place]) Generalized rash history VDRL, RPR- pending Hepatitis serology Still pending - KEKE pending Unclear joint pain history, unlikely Rh arthritis- per Dr. Oden RH factor- negative KEKE - pending Double stranded DNA negative #-Transaminitis likely due to infection. - US with fatty infiltration - hepatitis serology pending - trend 3- HTN: Resume atenolol . hold chlorthalidone . BP on lower side 4- DM: hold Metformin SSI 5- DVT px Visit type - Emergency Visit Emergency Visit: Yes ED Registration Date: 11/23/16 Care time: The patient presented to the Emergency Department on the above date and was hospitalized for further evaluation of their emergent condition. - New Patient This patient is new to me today: Yes Date on this admission: 11/26/16 - Critical Care Critical Care patient: No - Discharge Referral Referred to [facility] Med P.C.: No
[2016-11-25] MEDS ORDERED: POTASSIUM CHLORIDE TABS 20 MEQ TABLET.ER (FP) PO ONE (15:44)
--- NOTE | 2016-11-25 15:50 | PN ---
Teaching Attending Note Name of Resident: Geraldine Ludwig ATTENDING PHYSICIAN STATEMENT I saw and evaluated the patient. I reviewed the resident's note and discussed the case with the resident. I agree with the resident's findings and plan as documented. SUBJECTIVE: feels better , has pain in joints ana with fever OBJECTIVE: NAD, AAOX3 MMM, no LAP. CV: RRR, 2/6 SM at RUSB and LUSB. no JVD Lungs: CTAB ABd: soft, NT, ND , NL BS , no hepatosplenomegaly. Ext: no edema . tender slightly swollen interphalangeal joints in hands . with TTP. no kne effusions . Skin: no rash on LE or Upper ext today ASSESSMENT AND PLAN: 56 y/o lady with h/o HTN, recently diagnosed Dm who presented with 1 mo nth of fevr 1- Fever of unknown origin: no clear source. In DDX : Viral ( Dunge fever, CHikungunya ). paracytes , Tick born illness (Lyme , Ehrilichiaosis ,anaplasmosis, ...) . Lymphona. endocarditis - hold off ABx - follow blood cx - urine cx with low colony number of enterococcus fecalis - cont IVF NS - follow all serology - check RPR - Echo to r/o vegetation pending - CRP elevated 2- Transaminitis likely due to infection. - improved 3- HTN:can resume atenolol hold diuretics 4- DM: hold Metformin SSI 5- DVT px
[2016-11-25 16:18] LABS: HEP B SURFACE AB Non Reactive (.)
[2016-11-25] MEDS ORDERED: PT OWN MED DRAWER 7, Y5N ONE (16:36)
[2016-11-25] MEDS ORDERED: ATENOLOL 50 MG TABLET (FP) PO ONE ×2 (17:39→22:15)
[2016-11-26 00:06] LABS: ZIKA VIRUS SER. Negative (Negative); ZIKA VIRUS UR. Negative (Negative)
[2016-11-26] MEDS: SODIUM CHLORIDE 1,000 ML IV SCH ×4 (04:00→23:28)
[2016-11-26] MEDS: INSULIN SLIDING SCALE (NOVOLOG) 1 VIAL SQ SCH ×3 (06:42→17:23)
[2016-11-26] MEDS: IBUPROFEN 400 MG TABLET (FP) PO SCH (06:42)
[2016-11-26] MEDS: HEPARIN NA (PORCINE) 5,000 UNITS/ML 1ML VIAL SQ SCH ×3 (06:42→21:35)
[2016-11-26 07:06] LABS: BASOPHIL 0.7 % (0-2.0); EOSINOPHIL 1.1 % (0-4.5); MCH 30.5 pg (25.7-33.7); MEAN CELL VOLUME 87.2 fl (80-96); MEAN PLT VOLUME 7.5 fl (7.5-11.1); NEUTROPHILS 52.8 % (42.8-82.8); PLATELET COUNT 215 K/MM3 (134-434); RDW 13.3 % (11.6-15.6); WHITE BLOOD COUNT 3.7 K/mm3 (4.0-10.0)
[2016-11-26 07:23] LABS: ALBUMIN 2.5 g/dl (3.4-5.0); ANION GAP 8 (8-16); BILIRUBIN,TOTAL 0.8 mg/dL (0.2-1.0); CALCIUM 8.2 mg/dL (8.5-10.1); CO2 28 mmol/L (21-32); CREATININE 0.6 mg/dL (0.55-1.02); GLUCOSE,RANDOM 98 mg/dL (74-106); SGOT/AST 74 U/L (15-37); SGPT/ALT 71 U/L (12-78); TOT PROT 6.3 g/dl (6.4-8.2)
[2016-11-26 07:24] LABS: ALK PHOS 58 U/L (45-117)
--- NOTE | 2016-11-26 14:26 | PN ---
Progress Note, Physician History of Present Illness: patient had a low grade fever yesterday has been afebrile today wbc has dropped h and h has dropped - Current Medication List Current Medications: Active Medications Heparin Sodium (Porcine) (Heparin -) 5,000 unit SQ TID [facility] Last Admin: 11/26/16 06:42 Dose: 5,000 unit Sodium Chloride (Normal Saline -) 1,000 mls @ 100 mls/hr IV ASDIR [facility] Last Admin: 11/26/16 04:00 Dose: 100 mls/hr Ibuprofen (Motrin -) 400 mg PO BID PRN PRN Reason: FEVER OR PAIN Insulin Aspart (Novolog Vial Sliding Scale -) 1 vial SQ ACHS [facility] PRN Reason: Protocol Last Admin: 11/26/16 11:40 Dose: Not Given - Objective Vital Signs: Vital Signs Temperature 99.2 F 11/26/16 11:20 Pulse Rate 66 11/26/16 11:20 Respiratory Rate 18 11/26/16 11:20 Blood Pressure 131/68 11/26/16 11:20 O2 Sat by Pulse Oximetry (%) 100 11/25/16 22:00 Constitutional: Yes: No Distress, Calm Cardiovascular: Yes: Regular Rate and Rhythm Respiratory: Yes: Regular, CTA Bilaterally Gastrointestinal: Yes: Normal Bowel Sounds, Soft Musculoskeletal: Yes: WNL Extremities: Yes: WNL Neurological: Yes: Alert, Oriented Psychiatric: Yes: Alert, Oriented Labs: CBC, BMP 11/26/16 06:30 11/26/16 06:30 INR, PTT INR 1.42 (0.82-1.09) H 11/24/16 06:00 Assessment/Plan after looking at ther history\my primary diagnosis is viral fever in order it will be viral fever dengue chickenguniya malaria bacterial plan will continue to monitor will see how the fever pattern plays out continue to monitor h and h rest as per primary continue to monitor wbc
[2016-11-26] MEDS: IBUPROFEN 400 MG TABLET (FP) PO PRN (15:19)
[2016-11-26] MEDS: ATENOLOL 50 MG TABLET (FP) PO SCH (15:46)
--- NOTE | 2016-11-26 18:15 | PN ---
Teaching Attending Note Name of Resident: Geraldine Ludwig ATTENDING PHYSICIAN STATEMENT I saw and evaluated the patient. I reviewed the resident's note and discussed the case with the resident. I agree with the resident's findings and plan as documented. SUBJECTIVE:seen at 12pm has one low grade fever last night on standing ibuprofen. rash has returned. Joint pain is better OBJECTIVE: NAD, AAOX3 MMM, no LAP. CV: RRR, 2/6 SM at RUSB and LUSB. no JVD Lungs: CTAB Ext: no edema . tender interphalangeal joints in hands . Skin: macula rash on thighs today ASSESSMENT AND PLAN: 56 y/o lady with h/o HTN, recently diagnosed Dm who presented with 1 mo nth of fevr 1- Fever of unknown origin: no clear source. In DDX : Viral ( Dunge fever, CHikungunya ). paracytes , Tick born illness ( Ehrilichiaosis ,anaplasmosis, ...) . Lymphona. endocarditis - hepatitis , KEKE , RPR , lyme serology Neg - Blood cx NGTD - urine cx with low colony number of enterococcus fecalis - cont IVF NS . cont to hold off ABx - follow remaining serology - Echo with no vegetation - CRP elevated - dc standing high dose of ibuprofen and add 400 mg BID PRN to follow fever patern. - Leukopeninc today . Monitor 2- Transaminitis likely due to infection. - improved 3- HTN:Cont Atenolol , and hold Chlorthalidone 4- DM: hold Metformin DC SSI as sugars are NL 5- DVT px
--- NOTE | 2016-11-26 18:45 | PN ---
Physical Exam: SUBJECTIVE: Patient seen and examined Had a temperature of 100.0 at 6.00pm yesterday, and another spike this evening of 101.5 at 2.41pm. She also reported the itchy generalized maculo-papular rashes this afternoon. OBJECTIVE: Vital Signs Period Temp Pulse Resp BP Sys/Carcamo Pulse Ox Last 24 Hr 98.2 F-101.5 F 60-93 18-20 131-160/68-83 100-100 GENERAL: The patient is awake, alert, and fully oriented, in no acute distress. HEAD: Normal with no signs of trauma. EYES: PERRL, extraocular movements intact, sclera anicteric, conjunctiva clear. No ptosis. ENT: Ears normal, nares patent, oropharynx clear without exudates, moist mucous membranes. NECK: Trachea midline, full range of motion, supple. LUNGS: Breath sounds equal, clear to auscultation bilaterally, no wheezes, no crackles, no accessory muscle use. HEART: Regular rate and rhythm, S1, S2 systolic murmur L and R sternal border, no rub or gallop. ABDOMEN: Soft, maculopapular rashes on lower abdomen, nontender, nondistended, normoactive bowel sounds, no guarding, no rebound, no hepatosplenomegaly, no masses. EXTREMITIES: 2+ pulses, warm, well-perfused, no edema. NEUROLOGICAL: Cranial nerves II through XII grossly intact. Normal speech, gait not observed. PSYCH: Normal mood, normal affect. SKIN: Pruritic, maculopapular, erythematous rashes on both thighs, abdomen, and upper limbs. No petechiae, no affectation of hands and feet. Laboratory Results - last 24 hr Echo: Left ventricle is normal size, L ventricular systolic function is normal, Mild TR, mild Aortic sclerosis, moderate aortic regurgitation, no pericardial effusion, 11/24/16 11/25/16 11/26/16 06:00 22:14 06:30 WBC RBC Hgb Hct MCV MCH MCHC RDW Plt Count MPV Neutrophils % Lymphocytes % Monocytes % Eosinophils % Basophils % Sodium Potassium Chloride Carbon Dioxide Anion Gap BUN Creatinine Creat Clearance w eGFR POC Glucometer 99 Random Glucose Hemoglobin A1c % Calcium Total Bilirubin AST ALT Alkaline Phosphatase Total Protein Albumin KEKE Screen Negative Double Strand DNA Ab <1 RPR Titer Nonreactive Hepatitis A IgM Ab Negative Hepatitis A Ab Total Positive H Hep Bs Antigen Negative Hep Bs Antibody Non reactive Hep B Core Total Ab Negative 11/26/16 11/26/16 11/26/16 06:30 06:30 06:30 WBC 3.7 L RBC 3.53 L Hgb 10.8 Hct 30.7 L MCV 87.2 MCH 30.5 MCHC 35.0 RDW 13.3 Plt Count 215 MPV 7.5 Neutrophils % 52.8 Lymphocytes % 30.4 D Monocytes % 15.0 H Eosinophils % 1.1 Basophils % 0.7 Sodium 142 Potassium 3.8 Chloride 106 Carbon Dioxide 28 Anion Gap 8 BUN 9 Creatinine 0.6 Creat Clearance w eGFR > 60 POC Glucometer Random Glucose 98 Hemoglobin A1c % 6.5 H Calcium 8.2 L Total Bilirubin 0.8 D AST 74 H D ALT 71 Alkaline Phosphatase 58 Total Protein 6.3 L Albumin 2.5 L KEKE Screen Double Strand DNA Ab RPR Titer Hepatitis A IgM Ab Hepatitis A Ab Total Hep Bs Antigen Hep Bs Antibody Hep B Core Total Ab 11/26/16 11/26/16 11/26/16 06:41 11:38 17:20 WBC RBC Hgb Hct MCV MCH MCHC RDW Plt Count MPV Neutrophils % Lymphocytes % Monocytes % Eosinophils % Basophils % Sodium Potassium Chloride Carbon Dioxide Anion Gap BUN Creatinine Creat Clearance w eGFR POC Glucometer 93 80 92 Random Glucose Hemoglobin A1c % Calcium Total Bilirubin AST ALT Alkaline Phosphatase Total Protein Albumin KEKE Screen Double Strand DNA Ab RPR Titer Hepatitis A IgM Ab Hepatitis A Ab Total Hep Bs Antigen Hep Bs Antibody Hep B Core Total Ab Active Medications Generic Name Dose Route Start Last Admin Trade Name Freq PRN Reason Stop Dose Admin Atenolol 100 mg 11/26/16 15:45 11/26/16 15:46 Tenormin - PO 100 mg DAILY JOAQUÍN Administration Heparin Sodium (Porcine) 5,000 unit 11/23/16 22:00 11/26/16 15:20 Heparin - SQ 5,000 unit TID JOAQUÍN Administration Sodium Chloride 1,000 mls @ 100 mls/hr 11/23/16 17:15 11/26/16 17:23 Normal Saline - IV Not Given ASDIR JOAQUÍN Ibuprofen 400 mg 11/26/16 11:29 11/26/16 15:19 Motrin - PO 400 mg BID PRN Administration FEVER OR PAIN ASSESSMENT/PLAN: 56 y/o lady with h/o HTN, recently diagnosed Dm who presented with 1 month of fever #Fever of unknown origin: no clear source, spiked a fever today, had rashes, erythematous,maculopapular all over body sparing hands and feet, Rashes coincided with fever spike, Still likely viral fever Viral Dungue fever- serologies pending CHikungunya - serologies pending Zika serology- pending Supportive care- - cont Ibuprofen at 400mg Q8PRN Continue IV fluids parasites- Malaria - blood smear- negative Tick borne illness Lyme- negative Ehrilichiosis -pending anaplasmosis- pending Lymphoma- CBCD within normal limits #Endocarditis - blood cultures - no growth - echo (no evidence of vegetations) #Secondary syphilis - non reactive #Hepatitis serology- Hep A Ab positive, Hepatitis BsAg and Ab negative, Hep C negative #RH Arthritis- not likely-per Dr. Oden Unclear joint pain history, RH factor- negative KEKE negative Double stranded DNA negative #-Transaminitis - AST trending upwards . - US with fatty infiltration -ALT and ALP within normal limits - hepatitis serology pending # HTN: Resume atenolol 100mg dly . hold chlorthalidone . # DM: [id number] Discontinue SSI 5- DVT px Visit type - Emergency Visit Emergency Visit: Yes ED Registration Date: 11/23/16 Care time: The patient presented to the Emergency Department on the above date and was hospitalized for further evaluation of their emergent condition. - New Patient This patient is new to me today: No - Critical Care Critical Care patient: No - Discharge Referral Referred to [facility] Med P.C.: No
[2016-11-27] MEDS: HEPARIN NA (PORCINE) 5,000 UNITS/ML 1ML VIAL SQ SCH ×3 (06:07→21:52)
[2016-11-27 08:00] LABS: MCHC 34.7 g/dl (32.0-36.0); MEAN CELL VOLUME 86.4 fl (80-96); MEAN PLT VOLUME 8.2 fl (7.5-11.1); PLATELET COUNT 201 K/MM3 (134-434); RDW 12.9 % (11.6-15.6); WHITE BLOOD COUNT 3.8 K/mm3 (4.0-10.0)
[2016-11-27 08:24] LABS: ANION GAP 11 (8-16); CALCIUM 8.1 mg/dL (8.5-10.1); CO2 26 mmol/L (21-32); GLUCOSE,RANDOM 87 mg/dL (74-106)
[2016-11-27 08:25] LABS: CREATININE 0.6 mg/dL (0.55-1.02)
[2016-11-27 08:26] LABS: ALBUMIN 2.5 g/dl (3.4-5.0); BILIRUBIN,DIRECT 0.1 mg/dL (0.0-0.2); BILIRUBIN,TOTAL 0.6 mg/dL (0.2-1.0); TOT PROT 6.2 g/dl (6.4-8.2)
[2016-11-27] MEDS: ATENOLOL 50 MG TABLET (FP) PO SCH (09:04)
[2016-11-27] MEDS: SODIUM CHLORIDE 1,000 ML IV SCH (09:04)
[2016-11-27 09:57] LABS: TOTAL CELLS COUNTED 100
--- NOTE | 2016-11-27 13:10 | PN ---
Progress Note, Physician History of Present Illness: stable still spiking in between rash improving - Current Medication List Current Medications: Active Medications Atenolol (Tenormin -) 100 mg PO DAILY [facility] Last Admin: 11/27/16 09:04 Dose: 100 mg Heparin Sodium (Porcine) (Heparin -) 5,000 unit SQ TID [facility] Last Admin: 11/27/16 06:07 Dose: 5,000 unit Sodium Chloride (Normal Saline -) 1,000 mls @ 100 mls/hr IV ASDIR [facility] Last Admin: 11/27/16 09:04 Dose: 100 mls/hr Ibuprofen (Motrin -) 400 mg PO BID PRN PRN Reason: FEVER OR PAIN Last Admin: 11/26/16 15:19 Dose: 400 mg - Objective Vital Signs: Vital Signs Temperature 98.5 F 11/27/16 09:09 Pulse Rate 64 11/27/16 09:09 Respiratory Rate 20 11/27/16 09:09 Blood Pressure 145/89 11/27/16 09:09 O2 Sat by Pulse Oximetry (%) 97 11/27/16 09:00 Constitutional: Yes: No Distress, Calm Cardiovascular: Yes: Regular Rate and Rhythm Respiratory: Yes: Regular, CTA Bilaterally Gastrointestinal: Yes: Normal Bowel Sounds, Soft Musculoskeletal: Yes: WNL Extremities: Yes: WNL Neurological: Yes: Alert, Oriented Psychiatric: Yes: Alert, Oriented Labs: CBC, BMP 11/27/16 06:47 11/27/16 06:47 INR, PTT INR 1.42 (0.82-1.09) H 11/24/16 06:00 Assessment/Plan after looking at ther history\my primary diagnosis is viral fever in order it will be viral fever dengue chickenguniya malaria bacterial plan stable monitor rash rest as per primary
--- NOTE | 2016-11-27 13:29 | PN ---
Physical Exam: SUBJECTIVE: Patient seen and examined Had a fever overnight. Rashes are resolving. OBJECTIVE: Vital Signs Period Temp Pulse Resp BP Sys/Carcamo Pulse Ox Last 24 Hr 98.5 F-102.6 F 62-93 20-20 133-160/63-108 97-100 GENERAL: The patient is awake, alert, and fully oriented, in no acute distress. HEAD: Normal with no signs of trauma. EYES: PERRL, extraocular movements intact, sclera anicteric, conjunctiva clear. No ptosis. ENT: Ears normal, nares patent, oropharynx clear without exudates, moist mucous membranes. NECK: Trachea midline, full range of motion, supple. LUNGS: Breath sounds equal, clear to auscultation bilaterally, no wheezes, no crackles, no accessory muscle use. HEART: Regular rate and rhythm, S1, S2 systolic murmur L and R sternal border, no rub or gallop. ABDOMEN: Soft, resolving rashes on lower abdomen, nontender, nondistended, normoactive bowel sounds, no guarding, no rebound, no hepatosplenomegaly, no masses. EXTREMITIES: 2+ pulses, warm, well-perfused, no edema. NEUROLOGICAL: Cranial nerves II through XII grossly intact. Normal speech, gait not observed. PSYCH: Normal mood, normal affect. SKIN: Resolving rashes on both thighs, abdomen, and upper limbs. Laboratory Results - last 24 hr CBC, BMP 11/27/16 06:47 11/27/16 06:47 Laboratory Tests 11/27/16 11/27/16 06:47 06:47 Calcium 8.1 L Total Bilirubin 0.6 D Direct Bilirubin 0.1 AST 163 H D ALT 124 H D Alkaline Phosphatase 61 11/26/16 11/26/16 11/27/16 17:20 21:31 05:45 WBC RBC Hgb Hct MCV MCH MCHC RDW Plt Count MPV Total Counted Neutrophils % Neutrophils % (Manual) Band Neuts % (Manual) Lymphocytes % Lymphocytes % (Manual) Monocytes % (Manual) Eosinophils % (Manual) Sodium Potassium Chloride Carbon Dioxide Anion Gap BUN Creatinine POC Glucometer 92 105 94 Random Glucose Calcium Total Bilirubin Direct Bilirubin AST ALT Alkaline Phosphatase Total Protein Albumin 11/27/16 11/27/16 11/27/16 06:47 06:47 06:47 WBC 3.8 L RBC 3.34 L Hgb 10.0 L Hct 28.8 L MCV 86.4 MCH 30.0 MCHC 34.7 RDW 12.9 Plt Count 201 MPV 8.2 Total Counted 100 Neutrophils % Y Neutrophils % (Manual) 59 Band Neuts % (Manual) 1 Lymphocytes % Y Lymphocytes % (Manual) 25 Monocytes % (Manual) 12 H Eosinophils % (Manual) 1 Sodium 141 Potassium 3.5 Chloride 104 Carbon Dioxide 26 Anion Gap 11 BUN 8 Creatinine 0.6 POC Glucometer Random Glucose 87 Calcium 8.1 L Total Bilirubin 0.6 D Direct Bilirubin 0.1 AST 163 H D ALT 124 H D Alkaline Phosphatase 61 Total Protein 6.2 L Albumin 2.5 L 11/27/16 11:41 WBC RBC Hgb Hct MCV MCH MCHC RDW Plt Count MPV Total Counted Neutrophils % Neutrophils % (Manual) Band Neuts % (Manual) Lymphocytes % Lymphocytes % (Manual) Monocytes % (Manual) Eosinophils % (Manual) Sodium Potassium Chloride Carbon Dioxide Anion Gap BUN Creatinine POC Glucometer 88 Random Glucose Calcium Total Bilirubin Direct Bilirubin AST ALT Alkaline Phosphatase Total Protein Albumin Active Medications Generic Name Dose Route Start Last Admin Trade Name Freq PRN Reason Stop Dose Admin Atenolol 100 mg 11/26/16 15:45 11/27/16 09:04 Tenormin - PO 100 mg DAILY JOAQUÍN Administration Heparin Sodium (Porcine) 5,000 unit 11/23/16 22:00 11/27/16 06:07 Heparin - SQ 5,000 unit TID JOAQUÍN Administration Sodium Chloride 1,000 mls @ 100 mls/hr 11/23/16 17:15 11/27/16 09:04 Normal Saline - IV 100 mls/hr ASDIR JOAQUÍN Administration Ibuprofen 400 mg 11/26/16 11:29 11/26/16 15:19 Motrin - PO 400 mg BID PRN Administration FEVER OR PAIN ASSESSMENT/PLAN: 56 y/o lady with h/o HTN, who presented with 1 month of fever #Fever of unknown origin: no clear source, low grade fever overnight, had rashes resolving Still likely viral fever Start IvF 1/2 Nsaline 125/min Discontinue N/Saline (for high BP) Cont Ibuprof 400mg bid Repeat UA and Urine culture malaria parasite smear- blood to be drawn when patient spikes a fever CBC, CMP Brucella Ab Dengue Ab repeat Babesia Ab Awaiting Chikungunya Ab Ehrlichiosis and anaplamosis still pending #-Transaminitis - AST and ALT about double the value yesterday . Continue to trend LFTs # HTN: Resume atenolol 100mg dly . hold chlorthalidone . Visit type - Emergency Visit Emergency Visit: Yes ED Registration Date: 11/23/16 Care time: The patient presented to the Emergency Department on the above date and was hospitalized for further evaluation of their emergent condition. - New Patient This patient is new to me today: No - Critical Care Critical Care patient: No - Discharge Referral Referred to [facility] Med P.C.: No
--- NOTE | 2016-11-27 14:00 | PN ---
Teaching Attending Note Name of Resident: Geraldine Ludwig ATTENDING PHYSICIAN STATEMENT I saw and evaluated the patient. I reviewed the resident's note and discussed the case with the resident. I agree with the resident's findings and plan as documented. SUBJECTIVE: Patient continues to have fever on and off, feels warm. OBJECTIVE: Vital Signs Temperature 98.5 F 11/27/16 09:09 Pulse Rate 64 11/27/16 09:09 Respiratory Rate 20 11/27/16 09:09 Blood Pressure 145/89 11/27/16 09:09 O2 Sat by Pulse Oximetry (%) 97 11/27/16 09:00 CBCD WBC 3.8 K/mm3 (4.0-10.0) L 11/27/16 06:47 RBC 3.34 M/mm3 (3.60-5.2) L 11/27/16 06:47 Hgb 10.0 GM/dL (10.7-15.3) L 11/27/16 06:47 Hct 28.8 % (32.4-45.2) L 11/27/16 06:47 MCV 86.4 fl (80-96) 11/27/16 06:47 MCHC 34.7 g/dl (32.0-36.0) 11/27/16 06:47 RDW 12.9 % (11.6-15.6) 11/27/16 06:47 Plt Count 201 K/MM3 (134-434) 11/27/16 06:47 MPV 8.2 fl (7.5-11.1) 11/27/16 06:47 CMP Sodium 141 mmol/L (136-145) 11/27/16 06:47 Potassium 3.5 mmol/L (3.5-5.1) 11/27/16 06:47 Chloride 104 mmol/L (98-107) 11/27/16 06:47 Carbon Dioxide 26 mmol/L (21-32) 11/27/16 06:47 Anion Gap 11 (8-16) 11/27/16 06:47 BUN 8 mg/dL (7-18) 11/27/16 06:47 Creatinine 0.6 mg/dL (0.55-1.02) 11/27/16 06:47 Creat Clearance w eGFR > 60 (>60) 11/26/16 06:30 Random Glucose 87 mg/dL (74-106) 11/27/16 06:47 Calcium 8.1 mg/dL (8.5-10.1) L 11/27/16 06:47 Total Bilirubin 0.6 mg/dL (0.2-1.0) D 11/27/16 06:47 AST 163 U/L (15-37) H D 11/27/16 06:47 ALT 124 U/L (12-78) H D 11/27/16 06:47 Alkaline Phosphatase 61 U/L (45-117) 11/27/16 06:47 Total Protein 6.2 g/dl (6.4-8.2) L 11/27/16 06:47 Albumin 2.5 g/dl (3.4-5.0) L 11/27/16 06:47 CARDIAC ENZYMES Creatine Kinase 68 IU/L (26-192) 11/23/16 03:31 Troponin I < 0.02 ng/ml (0.00-0.05) 11/23/16 03:31 Current Medications Generic Name Dose Route Start Last Admin Trade Name Freq PRN Reason Stop Dose Admin Atenolol 100 mg 11/26/16 15:45 11/27/16 09:04 Tenormin - PO 100 mg DAILY JOAQUÍN Administration Heparin Sodium (Porcine) 5,000 unit 11/23/16 22:00 11/27/16 06:07 Heparin - SQ 5,000 unit TID JOAQUÍN Administration Sodium Chloride 1,000 mls @ 100 mls/hr 11/23/16 17:15 11/27/16 09:04 Normal Saline - IV 100 mls/hr ASDIR JOAQUÍN Administration Ibuprofen 400 mg 11/26/16 11:29 11/26/16 15:19 Motrin - PO 400 mg BID PRN Administration FEVER OR PAIN Home Medications Medication Instructions Recorded Atenolol/Chlorthalidone [Tenoretic 1 each PO DAILY 11/23/16 100 Tablet] Metformin HCl 850 mg PO DAILY 11/23/16 Laboratory Tests 11/23/16 11/24/16 11/24/16 18:25 06:00 06:00 Hemoglobin A1c % C-Reactive Protein Rheumatoid Factor < 10.0 EKKE Screen Negative Double Strand DNA Ab <1 RPR Titer A. phagocytophilum DNA Pending Lyme Screen IgG & IgM <0.91 Ehrlichia IgG Antibody Pending Ehrlichia IgM Antibody Pending Hepatitis A IgM Ab Negative Hepatitis A Ab Total Positive H Hep Bs Antigen Negative Hep Bs Antibody Non reactive Hep B Core Total Ab Negative Hep B Core IgM Ab Hepatitis C Ab (EIA) 11/24/16 11/24/16 11/26/16 06:00 15:42 06:30 Hemoglobin A1c % C-Reactive Protein 16.5 H Rheumatoid Factor KEKE Screen Double Strand DNA Ab RPR Titer Nonreactive A. phagocytophilum DNA Lyme Screen IgG & IgM Ehrlichia IgG Antibody Ehrlichia IgM Antibody Hepatitis A IgM Ab Negative Hepatitis A Ab Total Hep Bs Antigen Negative Hep Bs Antibody Hep B Core Total Ab Hep B Core IgM Ab Negative Hepatitis C Ab (EIA) <0.1 11/26/16 06:30 Hemoglobin A1c % 6.5 H C-Reactive Protein Rheumatoid Factor KEKE Screen Double Strand DNA Ab RPR Titer A. phagocytophilum DNA Lyme Screen IgG & IgM Ehrlichia IgG Antibody Ehrlichia IgM Antibody Hepatitis A IgM Ab Hepatitis A Ab Total Hep Bs Antigen Hep Bs Antibody Hep B Core Total Ab Hep B Core IgM Ab Hepatitis C Ab (EIA) PE: per resident's note ASSESSMENT AND PLAN: 56 y/o lady with h/o HTN, recently diagnosed Dm who presented with 1 mo nth of fevr # Fever of unknown origin: no clear source yet. Continue IVF for now increased to 150ml/hr of 1/2 NS In DDX : Viral ( Dunge fever, CHikungunya ). parasites , Tick born illness ( Ehrilichiaosis ,anaplasmosis, ...) so far all the work up is negative. lyme titer was send as well. Echo with no vegetation, CRP elevated , on ibuprofen 400 mg BID PRN fever , malaria smear was ordered as well #Acute transaminitis likely due to infection. continues to trend up, will follow # HTN:Continue Atenolol , and hold Chlorthalidone # DM: hold Metformin, Since BS is normal discontinued SSI DVT px: Heparin
[2016-11-27] MEDS ORDERED: SODIUM CHLORIDE 0.45% 1,000 ML IV SCH (14:30)
[2016-11-27 15:54] LABS: URINE APPEARANCE CLEAR; URINE BILIRUBIN NEGATIVE (NEGATIVE); URINE BLOOD NEGATIVE (NEGATIVE); URINE COLOR LTYELLOW; URINE GLUCOSE (UA) NEGATIVE (NEGATIVE); URINE KETONE NEGATIVE (NEGATIVE); URINE LEUK ESTERASE NEGATIVE (NEGATIVE); URINE NITRITE NEGATIVE (NEGATIVE); URINE PROTEIN NEGATIVE (NEGATIVE); URINE UROBILINOGEN 4.0 E.U/dl mg/dL (0.2-1.0)
[2016-11-27] MEDS: IBUPROFEN 400 MG TABLET (FP) PO PRN (18:26)
[2016-11-27 18:58] LABS: HIV 1 & 2 AB NEGATIVE; HIV 1 AGp24 NEGATIVE
[2016-11-28] MEDS: HEPARIN NA (PORCINE) 5,000 UNITS/ML 1ML VIAL SQ SCH ×3 (06:06→21:03)
[2016-11-28 07:58] LABS: BASOPHIL 0.5 % (0-2.0); EOSINOPHIL 0.6 % (0-4.5); MCH 30.2 pg (25.7-33.7); MCHC 35.1 g/dl (32.0-36.0); MEAN PLT VOLUME 7.9 fl (7.5-11.1); NEUTROPHILS 61.4 % (42.8-82.8); PLATELET COUNT 203 K/MM3 (134-434); RDW 13.3 % (11.6-15.6); WHITE BLOOD COUNT 4.3 K/mm3 (4.0-10.0)
[2016-11-28 08:22] LABS: ANION GAP 10 (8-16); CALCIUM 8.3 mg/dL (8.5-10.1); CO2 28 mmol/L (21-32); CREATININE 0.6 mg/dL (0.55-1.02); GLUCOSE,RANDOM 99 mg/dL (74-106)
[2016-11-28 08:25] LABS: ALBUMIN 2.6 g/dl (3.4-5.0); BILIRUBIN,DIRECT 0.2 mg/dL (0.0-0.2)
[2016-11-28 08:26] LABS: BILIRUBIN,TOTAL 0.8 mg/dL (0.2-1.0); TOT PROT 6.3 g/dl (6.4-8.2)
[2016-11-28] MEDS: ATENOLOL 50 MG TABLET (FP) PO SCH (10:20)
[2016-11-28] MEDS: IBUPROFEN 400 MG TABLET (FP) PO PRN ×2 (10:23→23:43)
[2016-11-28] MEDS ORDERED: POTASSIUM CHLORIDE ORAL LIQUID 20 MEQ/15 ML PO ONE (10:30)
[2016-11-28] MEDS: SODIUM CHLORIDE 0.45% 1,000 ML IV SCH ×2 (10:36→15:15)
--- NOTE | 2016-11-28 10:42 | PN ---
Physical Exam: SUBJECTIVE: Patient seen and examined Had a fever spike of 102.9 at 6.00pm last night. No new complaint overnight. OBJECTIVE: Vital Signs Period Temp Pulse Resp BP Sys/Carcamo Pulse Ox Last 24 Hr 98.7 F-102.9 F 56-73 18-20 109-158/65-80 97 GENERAL: The patient is awake, alert, and fully oriented, in no acute distress. HEAD: Normal with no signs of trauma. EYES: PERRL, extraocular movements intact, sclera anicteric, conjunctiva clear. No ptosis. ENT: Ears normal, nares patent, oropharynx clear without exudates, moist mucous membranes. NECK: Trachea midline, full range of motion, supple. LUNGS: Breath sounds equal, clear to auscultation bilaterally, no wheezes, no crackles, no accessory muscle use. HEART: Regular rate and rhythm, S1, S2 diastolic murmur L sternal border and systolic murmur R sternal border, no rub or gallop. ABDOMEN: Soft, nontender, nondistended, normoactive bowel sounds, no guarding, no rebound, no hepatosplenomegaly, no masses. EXTREMITIES: 2+ pulses, warm, well-perfused, no edema. NEUROLOGICAL: Cranial nerves II through XII grossly intact. Normal speech, gait not observed. PSYCH: Normal mood, normal affect. SKIN: No rashes Laboratory Results - last 24 hr 11/27/16 11/27/16 11/27/16 11:41 14:50 16:00 WBC RBC Hgb Hct MCV MCH MCHC RDW Plt Count MPV Neutrophils % Lymphocytes % Monocytes % Eosinophils % Basophils % Sodium Potassium Chloride Carbon Dioxide Anion Gap BUN Creatinine POC Glucometer 88 Random Glucose Calcium Total Bilirubin Direct Bilirubin AST ALT Alkaline Phosphatase Total Protein Albumin Urine Color Ltyellow Urine Appearance Clear Urine pH 6.0 Ur Specific [place] 1.015 Urine Protein Negative Urine Glucose (UA) Negative Urine Ketones Negative Urine Blood Negative Urine Nitrite Negative Urine Bilirubin Negative Urine Urobilinogen 4.0 e.u/dl H HIV 1&2 Antibody Screen Negative HIV P24 Antigen Negative 11/27/16 11/28/16 11/28/16 16:29 00:44 06:00 WBC 4.3 RBC 3.40 L Hgb 10.3 L Hct 29.2 L MCV 86.0 MCH 30.2 MCHC 35.1 RDW 13.3 Plt Count 203 MPV 7.9 Neutrophils % 61.4 Lymphocytes % 25.2 Monocytes % 12.3 H Eosinophils % 0.6 Basophils % 0.5 Sodium Potassium Chloride Carbon Dioxide Anion Gap BUN Creatinine POC Glucometer 83 99 Random Glucose Calcium Total Bilirubin Direct Bilirubin AST ALT Alkaline Phosphatase Total Protein Albumin Urine Color Urine Appearance Urine pH Ur Specific [place] Urine Protein Urine Glucose (UA) Urine Ketones Urine Blood Urine Nitrite Urine Bilirubin Urine Urobilinogen HIV 1&2 Antibody Screen HIV P24 Antigen 11/28/16 11/28/16 11/28/16 06:00 06:00 06:06 WBC RBC Hgb Hct MCV MCH MCHC RDW Plt Count MPV Neutrophils % Lymphocytes % Monocytes % Eosinophils % Basophils % Sodium 143 Potassium 3.4 L Chloride 105 Carbon Dioxide 28 Anion Gap 10 BUN 5 L D Creatinine 0.6 POC Glucometer 106 Random Glucose 99 Calcium 8.3 L Total Bilirubin 0.8 D Direct Bilirubin 0.2 D AST 192 H ALT 182 H D Alkaline Phosphatase 60 Total Protein 6.3 L Albumin 2.6 L Urine Color Urine Appearance Urine pH Ur Specific [place] Urine Protein Urine Glucose (UA) Urine Ketones Urine Blood Urine Nitrite Urine Bilirubin Urine Urobilinogen HIV 1&2 Antibody Screen HIV P24 Antigen Active Medications Generic Name Dose Route Start Last Admin Trade Name Freq PRN Reason Stop Dose Admin Atenolol 100 mg 11/26/16 15:45 11/28/16 10:20 Tenormin - PO 100 mg DAILY JOAQUÍN Administration Heparin Sodium (Porcine) 5,000 unit 11/23/16 22:00 11/28/16 06:06 Heparin - SQ 5,000 unit TID JOAQUÍN Administration Sodium Chloride 1,000 mls @ 150 mls/hr 11/28/16 10:26 1/2 Normal Saline IV ASDIR JOAQUÍN Ibuprofen 400 mg 11/26/16 11:29 11/28/16 10:23 Motrin - PO 400 mg BID PRN Administration FEVER OR PAIN Potassium Chloride 40 meq 11/28/16 10:24 Potassium Chloride Oral Liquid PO 11/28/16 10:25 ONCE ONE ASSESSMENT/PLAN: 56 y/o lady with h/o HTN, who presented with 1 month of fever #Fever of unknown origin: no clear source, Still likely viral fever- Chikungunya- considering maculopapular rash, symmetric arthralgia of fingers, elevated transaminases, absence of hemorrhage, travel to an endemic area and fever increase IvF 1/2 Nsaline 150/min Cont Ibuprof 400mg bid Repeat UA- showed urobilinogen malaria parasite smear-no parasites seen Urine culture - pending Brucella Ab - pending Dengue Ab - pending Babesia Ab - pending Awaiting Chikungunya Ab - pending Ehrlichiosis and anaplamosis still pending HIV test- negative #Lymphopenia WBC improving CBC, #-Transaminitis - AST and ALT still trending up likely a part of pathologic process in [place]ikung[place]ya. Continue to trend LFTs Hypokalemia: Replete with Kcl 40meq PO CMP # HTN: Continue atenolol 100mg dly . hold chlorthalidone . Visit type - Emergency Visit Emergency Visit: Yes ED Registration Date: 11/23/16 Care time: The patient presented to the Emergency Department on the above date and was hospitalized for further evaluation of their emergent condition. - New Patient This patient is new to me today: No - Critical Care Critical Care patient: No - Discharge Referral Referred to [facility] Med P.C.: No
--- NOTE | 2016-11-28 15:25 | PN ---
Progress Note, Physician History of Present Illness: doing much better rash nearly resolved spiked only once - Current Medication List Current Medications: Active Medications Atenolol (Tenormin -) 100 mg PO DAILY [facility] Last Admin: 11/28/16 10:20 Dose: 100 mg Heparin Sodium (Porcine) (Heparin -) 5,000 unit SQ TID [facility] Last Admin: 11/28/16 15:19 Dose: 5,000 unit Sodium Chloride (1/2 Normal Saline) 1,000 mls @ 150 mls/hr IV ASDIR [facility] Last Admin: 11/28/16 15:15 Dose: 150 mls/hr Ibuprofen (Motrin -) 400 mg PO BID PRN PRN Reason: FEVER OR PAIN Last Admin: 11/28/16 10:23 Dose: 400 mg - Objective Vital Signs: Vital Signs Temperature 99.6 F 11/28/16 06:00 Pulse Rate 73 11/28/16 06:00 Respiratory Rate 18 11/28/16 06:00 Blood Pressure 141/67 11/28/16 06:00 O2 Sat by Pulse Oximetry (%) 97 11/27/16 20:37 Constitutional: Yes: No Distress, Calm Cardiovascular: Yes: Regular Rate and Rhythm Respiratory: Yes: Regular, CTA Bilaterally Gastrointestinal: Yes: Normal Bowel Sounds, Soft Musculoskeletal: Yes: WNL Extremities: Yes: WNL Neurological: Yes: Alert, Oriented Psychiatric: Yes: Alert Labs: CBC, BMP 11/28/16 06:00 11/28/16 06:00 INR, PTT INR 1.42 (0.82-1.09) H 11/24/16 06:00 Assessment/Plan tamy viral fever dengue chickenguniya malaria bacterial plan improving no other issues
--- NOTE | 2016-11-28 16:25 | PN ---
Teaching Attending Note Name of Resident: Geraldine Ludwig ATTENDING PHYSICIAN STATEMENT I saw and evaluated the patient. I reviewed the resident's note and discussed the case with the resident. I agree with the resident's findings and plan as documented. SUBJECTIVE: Patient is feeling better on IVF OBJECTIVE: Vital Signs Temperature 98.9 F 11/28/16 14:25 Pulse Rate 63 11/28/16 14:25 Respiratory Rate 20 11/28/16 14:25 Blood Pressure 144/79 11/28/16 14:25 O2 Sat by Pulse Oximetry (%) 97 11/28/16 09:00 CBCD WBC 4.3 K/mm3 (4.0-10.0) 11/28/16 06:00 RBC 3.40 M/mm3 (3.60-5.2) L 11/28/16 06:00 Hgb 10.3 GM/dL (10.7-15.3) L 11/28/16 06:00 Hct 29.2 % (32.4-45.2) L 11/28/16 06:00 MCV 86.0 fl (80-96) 11/28/16 06:00 MCHC 35.1 g/dl (32.0-36.0) 11/28/16 06:00 RDW 13.3 % (11.6-15.6) 11/28/16 06:00 Plt Count 203 K/MM3 (134-434) 11/28/16 06:00 MPV 7.9 fl (7.5-11.1) 11/28/16 06:00 CMP Sodium 143 mmol/L (136-145) 11/28/16 06:00 Potassium 3.4 mmol/L (3.5-5.1) L 11/28/16 06:00 Chloride 105 mmol/L (98-107) 11/28/16 06:00 Carbon Dioxide 28 mmol/L (21-32) 11/28/16 06:00 Anion Gap 10 (8-16) 11/28/16 06:00 BUN 5 mg/dL (7-18) L D 11/28/16 06:00 Creatinine 0.6 mg/dL (0.55-1.02) 11/28/16 06:00 Creat Clearance w eGFR > 60 (>60) 11/26/16 06:30 Random Glucose 99 mg/dL (74-106) 11/28/16 06:00 Calcium 8.3 mg/dL (8.5-10.1) L 11/28/16 06:00 Total Bilirubin 0.8 mg/dL (0.2-1.0) D 11/28/16 06:00 AST 192 U/L (15-37) H 11/28/16 06:00 ALT 182 U/L (12-78) H D 11/28/16 06:00 Alkaline Phosphatase 60 U/L (45-117) 11/28/16 06:00 Total Protein 6.3 g/dl (6.4-8.2) L 11/28/16 06:00 Albumin 2.6 g/dl (3.4-5.0) L 11/28/16 06:00 CARDIAC ENZYMES Creatine Kinase 68 IU/L (26-192) 11/23/16 03:31 Troponin I < 0.02 ng/ml (0.00-0.05) 11/23/16 03:31 Current Medications Generic Name Dose Route Start Last Admin Trade Name Freq PRN Reason Stop Dose Admin Atenolol 100 mg 11/26/16 15:45 11/28/16 10:20 Tenormin - PO 100 mg DAILY JOAQUÍN Administration Heparin Sodium (Porcine) 5,000 unit 11/23/16 22:00 11/28/16 15:19 Heparin - SQ 5,000 unit TID JOAQUÍN Administration Sodium Chloride 1,000 mls @ 150 mls/hr 11/28/16 10:26 11/28/16 15:15 1/2 Normal Saline IV 150 mls/hr ASDIR JOAQUÍN Administration Ibuprofen 400 mg 11/26/16 11:29 11/28/16 10:23 Motrin - PO 400 mg BID PRN Administration FEVER OR PAIN Home Medications Medication Instructions Recorded Atenolol/Chlorthalidone [Tenoretic 1 each PO DAILY 11/23/16 100 Tablet] Metformin HCl 850 mg PO DAILY 11/23/16 ASSESSMENT AND PLAN: 56 y/o lady with h/o HTN, recently diagnosis of Dm who presented with 1 month hx of fever # Fever of unknown origin: most likely CHikungunya, some of w/u is pending . with recent traveling to [facility]. presented with Myalgia, rash and arthralgia. malaria smear when patient spikes temp. #Acute transaminitis likely due to infection. continues to trend up, will monitor # HTN:Continue Atenolol , and hold Chlorthalidone # DM: hold Metformin, Since BS is normal discontinued SSI DVT px: Heparin
[2016-11-29] MEDS: HEPARIN NA (PORCINE) 5,000 UNITS/ML 1ML VIAL SQ SCH ×3 (05:42→21:54)
[2016-11-29 08:00] LABS: BASOPHIL 0.5 % (0-2.0); EOSINOPHIL 0.8 % (0-4.5); MCH 29.7 pg (25.7-33.7); MCHC 34.1 g/dl (32.0-36.0); MEAN CELL VOLUME 87.1 fl (80-96); MEAN PLT VOLUME 7.3 fl (7.5-11.1); NEUTROPHILS 51.1 % (42.8-82.8); PLATELET COUNT 208 K/MM3 (134-434); RDW 13.1 % (11.6-15.6); WHITE BLOOD COUNT 3.7 K/mm3 (4.0-10.0)
--- NOTE | 2016-11-29 08:32 | PN ---
Physical Exam: SUBJECTIVE: Patient seen and examined Had a fever of 99.9 at 10.00pm last night. Has pain in L 4th proximal interphalangeal joint OBJECTIVE: Vital Signs Period Temp Pulse Resp BP Sys/Carcamo Pulse Ox Last 24 Hr 98.7 F-99.9 F 56-72 18-20 125-156/76-79 97-97 GENERAL: The patient is awake, alert, and fully oriented, in no acute distress. HEAD: Normal with no signs of trauma. EYES: PERRL, extraocular movements intact, sclera anicteric, conjunctiva clear. No ptosis. ENT: Ears normal, nares patent, oropharynx clear without exudates, moist mucous membranes. NECK: Trachea midline, full range of motion, supple. LUNGS: Breath sounds equal, clear to auscultation bilaterally, no wheezes, no crackles, no accessory muscle use. HEART: Regular rate and rhythm, S1, S2 diastolic murmur L sternal border and systolic murmur R sternal border, no rub or gallop. ABDOMEN: Soft, nontender, nondistended, normoactive bowel sounds, no guarding, no rebound, no hepatosplenomegaly, no masses. EXTREMITIES: 2+ pulses, warm, well-perfused, no edema. Mild tenderness over 4th L proximal interphalangeal joint. NEUROLOGICAL: Cranial nerves II through XII grossly intact. Normal speech, gait not observed. PSYCH: Normal mood, normal affect. SKIN: No new rashes. Resolving over the lower limbs and resolved over abdomen and upper limbs Laboratory Results - last 24 hr 11/28/16 11/28/16 11/29/16 06:00 06:00 07:30 WBC 3.7 L RBC 3.52 L Hgb 10.4 L Hct 30.6 L MCV 87.1 MCH 29.7 MCHC 34.1 RDW 13.1 Plt Count 208 MPV 7.3 L Neutrophils % 51.1 Lymphocytes % 32.9 D Monocytes % 14.7 H Eosinophils % 0.8 Basophils % 0.5 Sodium 143 Potassium 3.4 L Chloride 105 Carbon Dioxide 28 Anion Gap 10 BUN 5 L D Creatinine 0.6 Random Glucose 99 Calcium 8.3 L Total Bilirubin 0.8 D Direct Bilirubin 0.2 D AST 192 H ALT 182 H D Alkaline Phosphatase 60 Total Protein 6.3 L Albumin 2.6 L Active Medications Generic Name Dose Route Start Last Admin Trade Name Freq PRN Reason Stop Dose Admin Atenolol 100 mg 11/26/16 15:45 11/28/16 10:20 Tenormin - PO 100 mg DAILY JOAQUÍN Administration Heparin Sodium (Porcine) 5,000 unit 11/23/16 22:00 11/29/16 05:42 Heparin - SQ 5,000 unit TID JOAQUÍN Administration Sodium Chloride 1,000 mls @ 150 mls/hr 11/28/16 10:26 11/28/16 15:15 1/2 Normal Saline IV 150 mls/hr ASDIR JOAQUÍN Administration Ibuprofen 400 mg 11/26/16 11:29 11/28/16 23:43 Motrin - PO 400 mg BID PRN Administration FEVER OR PAIN ASSESSMENT/PLAN: 56 y/o lady with h/o HTN, who presented with 1 month of fever #Fever of unknown origin: Likely viral fever- Chikungunya- considering resolving maculopapular rash, history of symmetric arthralgia of fingers, elevated transaminases, absence of hemorrhage, travel to an endemic area and fever Increase IvF 1/2 Nsaline @200mls/hr Cont Ibuprof 400mg bid Urine culture - pending Brucella Ab - pending Dengue Ab - pending Babesia Ab - pending Awaiting Chikungunya Ab - pending Ehrlichiosis and anaplamosis still pending #Arthralgia Continue Ibuprofen 400mg bid PRN #Lymphopenia Continue to trend CBC, #-Transaminitis likely a part of pathologic process in [place] Trending downwards. Continue to trend LFTs #Hypokalemia: Corrected-resolved CMP # HTN: Continue atenolol 100mg dly . hold chlorthalidone . Visit type - Emergency Visit Emergency Visit: Yes ED Registration Date: 11/23/16 Care time: The patient presented to the Emergency Department on the above date and was hospitalized for further evaluation of their emergent condition. - New Patient This patient is new to me today: No - Critical Care Critical Care patient: No - Discharge Referral Referred to [facility] Med P.C.: No
[2016-11-29 08:39] LABS: ALBUMIN 2.6 g/dl (3.4-5.0); ANION GAP 6 (8-16); CALCIUM 8.1 mg/dL (8.5-10.1); CO2 28 mmol/L (21-32); CREATININE 0.6 mg/dL (0.55-1.02); GLUCOSE,RANDOM 100 mg/dL (74-106); SGOT/AST 135 U/L (15-37); SGPT/ALT 154 U/L (12-78)
[2016-11-29 08:41] LABS: ALK PHOS 63 U/L (45-117); BILIRUBIN,TOTAL 0.5 mg/dL (0.2-1.0); TOT PROT 6.6 g/dl (6.4-8.2)
[2016-11-29] MEDS: ATENOLOL 50 MG TABLET (FP) PO SCH (10:11)
[2016-11-29] MEDS: SODIUM CHLORIDE 0.45% 1,000 ML IV SCH ×2 (11:27→16:44)
--- NOTE | 2016-11-29 16:02 | PN ---
Progress Note, Physician History of Present Illness: doing much better no new issues - Current Medication List Current Medications: Active Medications Atenolol (Tenormin -) 100 mg PO DAILY [facility] Last Admin: 11/29/16 10:11 Dose: 100 mg Heparin Sodium (Porcine) (Heparin -) 5,000 unit SQ TID [facility] Last Admin: 11/29/16 15:59 Dose: 5,000 unit Sodium Chloride (1/2 Normal Saline) 1,000 mls @ 200 mls/hr IV ASDIR [facility] Last Admin: 11/29/16 11:27 Dose: 200 mls/hr Ibuprofen (Motrin -) 400 mg PO BID PRN PRN Reason: FEVER OR PAIN Last Admin: 11/28/16 23:43 Dose: 400 mg - Objective Vital Signs: Vital Signs Temperature 99.6 F 11/29/16 15:25 Pulse Rate 74 11/29/16 15:25 Respiratory Rate 20 11/29/16 15:25 Blood Pressure 152/83 11/29/16 10:09 O2 Sat by Pulse Oximetry (%) 97 11/28/16 20:26 Constitutional: Yes: No Distress, Calm Cardiovascular: Yes: Regular Rate and Rhythm Respiratory: Yes: Regular, CTA Bilaterally Gastrointestinal: Yes: Normal Bowel Sounds, Soft Musculoskeletal: Yes: WNL Extremities: Yes: WNL Neurological: Yes: Alert, Oriented Psychiatric: Yes: Alert, Oriented Labs: CBC, BMP 11/29/16 07:30 11/29/16 07:30 INR, PTT INR 1.42 (0.82-1.09) H 11/24/16 06:00 Assessment/Plan tamy viral fever dengue chickenguniya malaria bacterial plan improving rash resolved recheck crp--ordered
--- NOTE | 2016-11-29 17:21 | PN ---
Teaching Attending Note Name of Resident: Joseph Wilson ATTENDING PHYSICIAN STATEMENT I saw and evaluated the patient. I reviewed the resident's note and discussed the case with the resident. I agree with the resident's findings and plan as documented. SUBJECTIVE: Patient is feeling very itchy some new rashes on her left thigh, also right upper extremity swelling as per nurse due to Heparin injection. OBJECTIVE: Vital Signs Temperature 99.6 F 11/29/16 15:25 Pulse Rate 74 11/29/16 15:25 Respiratory Rate 20 11/29/16 15:25 Blood Pressure 152/83 11/29/16 10:09 O2 Sat by Pulse Oximetry (%) 97 11/28/16 20:26 CBCD WBC 3.7 K/mm3 (4.0-10.0) L 11/29/16 07:30 RBC 3.52 M/mm3 (3.60-5.2) L 11/29/16 07:30 Hgb 10.4 GM/dL (10.7-15.3) L 11/29/16 07:30 Hct 30.6 % (32.4-45.2) L 11/29/16 07:30 MCV 87.1 fl (80-96) 11/29/16 07:30 MCHC 34.1 g/dl (32.0-36.0) 11/29/16 07:30 RDW 13.1 % (11.6-15.6) 11/29/16 07:30 Plt Count 208 K/MM3 (134-434) 11/29/16 07:30 MPV 7.3 fl (7.5-11.1) L 11/29/16 07:30 CMP Sodium 141 mmol/L (136-145) 11/29/16 07:30 Potassium 3.6 mmol/L (3.5-5.1) 11/29/16 07:30 Chloride 107 mmol/L (98-107) 11/29/16 07:30 Carbon Dioxide 28 mmol/L (21-32) 11/29/16 07:30 Anion Gap 6 (8-16) L 11/29/16 07:30 BUN 6 mg/dL (7-18) L 11/29/16 07:30 Creatinine 0.6 mg/dL (0.55-1.02) 11/29/16 07:30 Creat Clearance w eGFR > 60 (>60) 11/29/16 07:30 Random Glucose 100 mg/dL (74-106) 11/29/16 07:30 Calcium 8.1 mg/dL (8.5-10.1) L 11/29/16 07:30 Total Bilirubin 0.5 mg/dL (0.2-1.0) D 11/29/16 07:30 AST 135 U/L (15-37) H D 11/29/16 07:30 ALT 154 U/L (12-78) H 11/29/16 07:30 Alkaline Phosphatase 63 U/L (45-117) 11/29/16 07:30 Total Protein 6.6 g/dl (6.4-8.2) 11/29/16 07:30 Albumin 2.6 g/dl (3.4-5.0) L 11/29/16 07:30 CARDIAC ENZYMES Creatine Kinase 68 IU/L (26-192) 11/23/16 03:31 Troponin I < 0.02 ng/ml (0.00-0.05) 11/23/16 03:31 Current Medications Generic Name Dose Route Start Last Admin Trade Name Freq PRN Reason Stop Dose Admin Atenolol 100 mg 11/26/16 15:45 11/29/16 10:11 Tenormin - PO 100 mg DAILY JOAQUÍN Administration Heparin Sodium (Porcine) 5,000 unit 11/23/16 22:00 11/29/16 15:59 Heparin - SQ 5,000 unit TID JOAQUÍN Administration Sodium Chloride 1,000 mls @ 200 mls/hr 11/29/16 10:13 11/29/16 16:44 1/2 Normal Saline IV 200 mls/hr ASDIR JOAQUÍN Administration Ibuprofen 400 mg 11/26/16 11:29 11/28/16 23:43 Motrin - PO 400 mg BID PRN Administration FEVER OR PAIN Home Medications Medication Instructions Recorded Atenolol/Chlorthalidone [Tenoretic 1 each PO DAILY 11/23/16 100 Tablet] Metformin HCl 850 mg PO DAILY 11/23/16 PE: per resident's note Right Upper extremity positive for half a size of golf ball. ASSESSMENT AND PLAN: 56 y/o lady with h/o HTN, recently diagnosis of Dm who presented with 1 month hx of fever # Hard golf size of hematoma will get US to r/o DVT of right upper extremity # Fever of unknown origin: Itching with rash of lower extremity: most likely CHikungunya, w/u is pending . with recent traveling to [facility]. presented with Myalgia, rash and arthralgia. malaria smear when patient spikes temp. Benadryl po q8h 25mg #Acute transaminitis likely due to infection. continues to trend up, will monitor # HTN:Continue Atenolol , and hold Chlorthalidone # DM: hold Metformin, Since BS is normal discontinued SSI DVT px: Heparin
[2016-11-29] MEDS ORDERED: diphenhydrAMINE HCL 25 MG CAPSULE (FP) PO PRN (18:08)
[2016-11-30] MEDS: SODIUM CHLORIDE 0.45% 1,000 ML IV SCH ×5 (05:00→18:55)
[2016-11-30] MEDS: HEPARIN NA (PORCINE) 5,000 UNITS/ML 1ML VIAL SQ SCH ×3 (06:20→21:13)
[2016-11-30 08:42] LABS: BASOPHIL 0.5 % (0-2.0); EOSINOPHIL 1.1 % (0-4.5); MCH 29.8 pg (25.7-33.7); MCHC 34.5 g/dl (32.0-36.0); MEAN CELL VOLUME 86.5 fl (80-96); MEAN PLT VOLUME 7.4 fl (7.5-11.1); PLATELET COUNT 199 K/MM3 (134-434); WHITE BLOOD COUNT 4.3 K/mm3 (4.0-10.0)
[2016-11-30 09:28] LABS: ALBUMIN 2.5 g/dl (3.4-5.0); ANION GAP 10 (8-16); CO2 25 mmol/L (21-32); GLUCOSE,RANDOM 102 mg/dL (74-106); SGOT/AST 108 U/L (15-37)
[2016-11-30 09:30] LABS: ALK PHOS 58 U/L (45-117); BILIRUBIN,TOTAL 0.5 mg/dL (0.2-1.0); CREATININE 0.6 mg/dL (0.55-1.02); SGPT/ALT 129 U/L (12-78); TOT PROT 6.1 g/dl (6.4-8.2)
[2016-11-30] MEDS: ATENOLOL 50 MG TABLET (FP) PO SCH (09:40)
--- NOTE | 2016-11-30 13:03 | PN ---
Progress Note (short form) - Note Progress Note: Patient is feeling better in no acute distress. Temperature 98.7 F 11/30/16 09:00 Pulse Rate 64 11/30/16 09:00 Respiratory Rate 16 11/30/16 09:00 Blood Pressure 139/69 11/30/16 09:00 O2 Sat by Pulse Oximetry (%) 99 11/30/16 09:00 Selected Entries 11/27/16 11/27/16 11/28/16 18:00 19:53 14:25 Temperature 102.9 F H 98.7 F 98.9 F 11/28/16 11/28/16 11/29/16 18:52 22:00 06:00 Temperature 99.6 F 99.9 F H 98.7 F 11/29/16 11/29/16 11/29/16 10:09 15:25 18:07 Temperature 98.5 F 99.6 F 100.7 F H 11/29/16 11/29/16 11/30/16 18:39 22:00 02:01 Temperature 100 F H 99.5 F 99 F 11/30/16 11/30/16 06:58 09:00 Temperature 98.9 F 98.7 F Laboratory Tests 11/23/16 11/24/16 11/24/16 18:25 06:00 06:00 Hemoglobin A1c % C-Reactive Protein Rheumatoid Factor < 10.0 KEKE Screen Negative Double Strand DNA Ab <1 RPR Titer A. phagocytophilum DNA Pending Lyme Screen IgG & IgM <0.91 Ehrlichia IgG Antibody Pending Ehrlichia IgM Antibody Pending Hepatitis A IgM Ab Negative Hepatitis A Ab Total Positive H Hep Bs Antigen Negative Hep Bs Antibody Non reactive Hep B Core Total Ab Negative Hep B Core IgM Ab Hepatitis C Ab (EIA) 11/24/16 11/24/16 11/26/16 06:00 15:42 06:30 Hemoglobin A1c % C-Reactive Protein 16.5 H Rheumatoid Factor KEKE Screen Double Strand DNA Ab RPR Titer Nonreactive A. phagocytophilum DNA Lyme Screen IgG & IgM Ehrlichia IgG Antibody Ehrlichia IgM Antibody Hepatitis A IgM Ab Negative Hepatitis A Ab Total Hep Bs Antigen Negative Hep Bs Antibody Hep B Core Total Ab Hep B Core IgM Ab Negative Hepatitis C Ab (EIA) <0.1 11/26/16 06:30 Hemoglobin A1c % 6.5 H C-Reactive Protein Rheumatoid Factor KEKE Screen Double Strand DNA Ab RPR Titer A. phagocytophilum DNA Lyme Screen IgG & IgM Ehrlichia IgG Antibody Ehrlichia IgM Antibody Hepatitis A IgM Ab Hepatitis A Ab Total Hep Bs Antigen Hep Bs Antibody Hep B Core Total Ab Hep B Core IgM Ab Hepatitis C Ab (EIA) GENERAL: The patient is awake, alert, and fully oriented, in no acute distress. HEAD: Normal with no signs of trauma. EYES: PERRL, extraocular movements intact, sclera anicteric, conjunctiva clear. ENT: Ears normal, oropharynx clear without exudates, moist mucous membranes. NECK: Trachea midline, full range of motion, supple. LUNGS: Breath sounds equal, clear to auscultation bilaterally, no wheezes, no crackles, no accessory muscle use. HEART: Regular rate and rhythm, S1, S2 diastolic murmur L sternal border and systolic murmur R sternal border, no rub or gallop. ABDOMEN: Soft, nontender, nondistended, normoactive bowel sounds, no guarding, no rebound, no hepatosplenomegaly, no masses. EXTREMITIES: 2+ pulses, warm, well-perfused, no edema. Right Upper extremity positive for half a size of golf ball improving NEUROLOGICAL: Cranial nerves II through XII grossly intact. Normal speech, gait not observed. PSYCH: Normal mood, normal affect. SKIN: No new rashes. Resolving over the lower limbs and resolved over abdomen and upper limbs CBCD WBC 4.3 K/mm3 (4.0-10.0) 11/30/16 08:00 RBC 3.29 M/mm3 (3.60-5.2) L 11/30/16 08:00 Hgb 9.8 GM/dL (10.7-15.3) L 11/30/16 08:00 Hct 28.5 % (32.4-45.2) L 11/30/16 08:00 MCV 86.5 fl (80-96) 11/30/16 08:00 MCHC 34.5 g/dl (32.0-36.0) 11/30/16 08:00 RDW 13.0 % (11.6-15.6) 11/30/16 08:00 Plt Count 199 K/MM3 (134-434) 11/30/16 08:00 MPV 7.4 fl (7.5-11.1) L 11/30/16 08:00 CMP Sodium 141 mmol/L (136-145) 11/30/16 08:00 Potassium 3.3 mmol/L (3.5-5.1) L 11/30/16 08:00 Chloride 106 mmol/L (98-107) 11/30/16 08:00 Carbon Dioxide 25 mmol/L (21-32) 11/30/16 08:00 Anion Gap 10 (8-16) 11/30/16 08:00 BUN 4 mg/dL (7-18) L D 11/30/16 08:00 Creatinine 0.6 mg/dL (0.55-1.02) 11/30/16 08:00 Creat Clearance w eGFR > 60 (>60) 11/30/16 08:00 Random Glucose 102 mg/dL (74-106) 11/30/16 08:00 Calcium 8.0 mg/dL (8.5-10.1) L 11/30/16 08:00 Total Bilirubin 0.5 mg/dL (0.2-1.0) 11/30/16 08:00 AST 108 U/L (15-37) H 11/30/16 08:00 ALT 129 U/L (12-78) H 11/30/16 08:00 Alkaline Phosphatase 58 U/L (45-117) 11/30/16 08:00 Total Protein 6.1 g/dl (6.4-8.2) L 11/30/16 08:00 Albumin 2.5 g/dl (3.4-5.0) L 11/30/16 08:00 CARDIAC ENZYMES Creatine Kinase 68 IU/L (26-192) 11/23/16 03:31 Troponin I < 0.02 ng/ml (0.00-0.05) 11/23/16 03:31 Current Medications Generic Name Dose Route Start Last Admin Trade Name Freq PRN Reason Stop Dose Admin Atenolol 100 mg 11/26/16 15:45 11/30/16 09:40 Tenormin - PO 100 mg DAILY JOAQUÍN Administration Diphenhydramine HCl 25 mg 11/29/16 18:08 11/29/16 18:49 Benadryl - PO 25 mg Q12H PRN Administration FOR ITCHING Heparin Sodium (Porcine) 5,000 unit 11/23/16 22:00 11/30/16 06:20 Heparin - SQ 5,000 unit TID JOAQUÍN Administration Sodium Chloride 1,000 mls @ 200 mls/hr 11/29/16 10:13 11/30/16 09:40 1/2 Normal Saline IV 200 mls/hr ASDIR JOAQUÍN Administration Ibuprofen 400 mg 11/26/16 11:29 11/28/16 23:43 Motrin - PO 400 mg BID PRN Administration FEVER OR PAIN Home Medications Medication Instructions Recorded Atenolol/Chlorthalidone [Tenoretic 1 each PO DAILY 11/23/16 100 Tablet] Metformin HCl 850 mg PO DAILY 11/23/16 Duplex of RUE: no DVT ASSESSMENT AND PLAN: 56 y/o lady with h/o HTN, recently diagnosis of Dm who presented with 1 month hx of fever # Hard golf size of hematoma improving continue warm compresses, no DVT s/p US # Fever of unknown origin: Itching with rash of lower extremity: most likely CHikungunya vs Dengue Fever continue IVF ,with hx of recent traveling to [facility]. presented with Myalgia, rash and arthralgia. Benadryl po q8h 25mg , some of the w/u is pending #Acute transaminitis likely due to infection. is trending down now. # HTN:Continue Atenolol , and hold Chlorthalidone # T2DM: hold Metformin, Since BS is normal discontinued SSI Lovenox: 40mg sq Visit type - Emergency Visit Emergency Visit: Yes ED Registration Date: 11/23/16 Care time: The patient presented to the Emergency Department on the above date and was hospitalized for further evaluation of their emergent condition. - New Patient This patient is new to me today: No - Critical Care Critical Care patient: No
--- NOTE | 2016-11-30 13:25 | PN ---
Progress Note, Physician History of Present Illness: Pt feels much better today Fever appears to have resolved Rash improved no specific complaints - Current Medication List Current Medications: Active Medications Atenolol (Tenormin -) 100 mg PO DAILY PENDING SALE TO [facility] Last Admin: 11/30/16 09:40 Dose: 100 mg Diphenhydramine HCl (Benadryl -) 25 mg PO Q12H PRN PRN Reason: FOR ITCHING Last Admin: 11/29/16 18:49 Dose: 25 mg Heparin Sodium (Porcine) (Heparin -) 5,000 unit SQ TID PENDING SALE TO [facility] Last Admin: 11/30/16 06:20 Dose: 5,000 unit Sodium Chloride (1/2 Normal Saline) 1,000 mls @ 200 mls/hr IV ASDIR PENDING SALE TO [facility] Last Admin: 11/30/16 09:40 Dose: 200 mls/hr Ibuprofen (Motrin -) 400 mg PO BID PRN PRN Reason: FEVER OR PAIN Last Admin: 11/28/16 23:43 Dose: 400 mg Potassium Chloride (K-Dur -) 40 meq PO DAILY PENDING SALE TO [facility] Stop: 12/02/16 10:01 - Objective Vital Signs: Vital Signs Temperature 98.7 F 11/30/16 09:00 Pulse Rate 64 11/30/16 09:00 Respiratory Rate 16 11/30/16 09:00 Blood Pressure 139/69 11/30/16 09:00 O2 Sat by Pulse Oximetry (%) 99 11/30/16 09:00 Constitutional: Yes: No Distress Eyes: Yes: WNL HENT: Yes: WNL Neck: Yes: WNL Cardiovascular: Yes: Regular Rate and Rhythm Respiratory: Yes: CTA Bilaterally Gastrointestinal: Yes: Normal Bowel Sounds, Soft Genitourinary: Yes: WNL Musculoskeletal: Yes: WNL Extremities: Yes: WNL Integumentary: Yes: Rash (on LE resolving) Neurological: Yes: Alert, Oriented Psychiatric: Yes: Alert Labs: CBC, BMP 11/30/16 08:00 11/30/16 08:00 INR, PTT INR 1.42 (0.82-1.09) H 11/24/16 06:00 Assessment/Plan Fever/Rash likely viral, resolved follow up pending serology results Clinically improved off antibiotics, decreased crp for possible d/c home tomorrow
[2016-11-30] MEDS: POTASSIUM CHLORIDE TABS 20 MEQ TABLET.ER (FP) PO SCH (13:53)
[2016-11-30] MEDS ORDERED: SODIUM CHLORIDE 0.45% 1,000 ML IV SCH (23:34)
[2016-12-01] MEDS ORDERED: HEPARIN NA (PORCINE) 5,000 UNITS/ML 1ML VIAL SQ SCH (06:00)
[2016-12-01 07:34] LABS: ALBUMIN 2.8 g/dl (3.4-5.0); ANION GAP 4 (8-16); BILIRUBIN,TOTAL 0.5 mg/dL (0.2-1.0); CALCIUM 8.4 mg/dL (8.5-10.1); CO2 31 mmol/L (21-32); CREATININE 0.7 mg/dL (0.55-1.02); GLUCOSE,RANDOM 96 mg/dL (74-106); SGOT/AST 91 U/L (15-37); SGPT/ALT 136 U/L (12-78); TOT PROT 6.7 g/dl (6.4-8.2)
[2016-12-01 07:35] LABS: ALK PHOS 61 U/L (45-117)
[2016-12-01 08:59] VITALS: BP 152/87; PULSE 65; TEMP 98.5
[2016-12-01] MEDS: POTASSIUM CHLORIDE TABS 20 MEQ TABLET.ER (FP) PO SCH (08:59)
[2016-12-01] MEDS: ATENOLOL 50 MG TABLET (FP) PO SCH (09:00)
--- NOTE | 2016-12-01 12:37 | PN ---
Teaching Attending Note Name of Resident: Geraldine Ludwig ATTENDING PHYSICIAN STATEMENT I saw and evaluated the patient. I reviewed the resident's note and discussed the case with the resident. I agree with the resident's findings and plan as documented. SUBJECTIVE: Patient is feeling better with no acute distress. OBJECTIVE: Vital Signs Temperature 98.5 F 12/01/16 08:56 Pulse Rate 65 12/01/16 08:56 Respiratory Rate 20 12/01/16 08:56 Blood Pressure 152/87 12/01/16 08:56 O2 Sat by Pulse Oximetry (%) 98 12/01/16 09:00 Current Medications Generic Name Dose Route Start Last Admin Trade Name Freq PRN Reason Stop Dose Admin Atenolol 100 mg 11/26/16 15:45 12/01/16 09:00 Tenormin - PO 100 mg DAILY JOAQUÍN Administration Diphenhydramine HCl 25 mg 11/29/16 18:08 11/29/16 18:49 Benadryl - PO 25 mg Q12H PRN Administration FOR ITCHING Heparin Sodium (Porcine) 5,000 unit 12/01/16 06:00 12/01/16 05:46 Heparin - SQ 5,000 unit TID JOAQUÍN Administration Sodium Chloride 1,000 mls @ 75 mls/hr 11/30/16 23:34 11/30/16 23:50 1/2 Normal Saline IV 75 mls/hr ASDIR JOAQUÍN Administration Ibuprofen 400 mg 11/26/16 11:29 11/28/16 23:43 Motrin - PO 400 mg BID PRN Administration FEVER OR PAIN CBCD WBC 4.3 K/mm3 (4.0-10.0) 11/30/16 08:00 RBC 3.29 M/mm3 (3.60-5.2) L 11/30/16 08:00 Hgb 9.8 GM/dL (10.7-15.3) L 11/30/16 08:00 Hct 28.5 % (32.4-45.2) L 11/30/16 08:00 MCV 86.5 fl (80-96) 11/30/16 08:00 MCHC 34.5 g/dl (32.0-36.0) 11/30/16 08:00 RDW 13.0 % (11.6-15.6) 11/30/16 08:00 Plt Count 199 K/MM3 (134-434) 11/30/16 08:00 MPV 7.4 fl (7.5-11.1) L 11/30/16 08:00 CMP Sodium 142 mmol/L (136-145) 12/01/16 06:45 Potassium 4.3 mmol/L (3.5-5.1) D 12/01/16 06:45 Chloride 107 mmol/L (98-107) 12/01/16 06:45 Carbon Dioxide 31 mmol/L (21-32) D 12/01/16 06:45 Anion Gap 4 (8-16) L 12/01/16 06:45 BUN 5 mg/dL (7-18) L D 12/01/16 06:45 Creatinine 0.7 mg/dL (0.55-1.02) 12/01/16 06:45 Creat Clearance w eGFR > 60 (>60) 12/01/16 06:45 Random Glucose 96 mg/dL (74-106) 12/01/16 06:45 Calcium 8.4 mg/dL (8.5-10.1) L 12/01/16 06:45 Total Bilirubin 0.5 mg/dL (0.2-1.0) 12/01/16 06:45 AST 91 U/L (15-37) H 12/01/16 06:45 ALT 136 U/L (12-78) H 12/01/16 06:45 Alkaline Phosphatase 61 U/L (45-117) 12/01/16 06:45 Total Protein 6.7 g/dl (6.4-8.2) 12/01/16 06:45 Albumin 2.8 g/dl (3.4-5.0) L 12/01/16 06:45 CARDIAC ENZYMES Creatine Kinase 68 IU/L (26-192) 11/23/16 03:31 Troponin I < 0.02 ng/ml (0.00-0.05) 11/23/16 03:31 Home Medications Medication Instructions Recorded Atenolol/Chlorthalidone [Tenoretic 1 each PO DAILY 11/23/16 100 Tablet] Metformin HCl 850 mg PO DAILY 11/23/16 PE: per resident's note Duplex of RUE: no DVT ASSESSMENT AND PLAN: 56 y/o lady with h/o HTN, recently diagnosis of Dm who presented with 1 month hx of fever # Fever of unknown origin: Itching with rash of lower extremity: most likely CHikungunya vs Dengue Fever continue IVF ,with hx of recent traveling to [facility]. presented with Myalgia, rash and arthralgia. Benadryl po q12h prn 25mg ,Most of the w/u is negative. Patient will follow with her own doctor in [place]. Continue drinking water. # Hard golf size of hematoma improving continue warm compresses, no DVT s/p US #Acute transaminitis likely due to infection. is trending down now. Patient was told not to take any Tylenol. # HTN:Continue Atenolol for now, discontinue Chlorthalidone for time being. # DM: Patient is not aware that she is diebetic her JHemoglobin A1c was 6.4 in the hospital and Metformin was given to her in [facility] , Tomorrow patient is going to see her primary care doctor in [place] and she will bring this matter into his attention since she was she was never diagnosed with DM in the [facility].
--- NOTE | 2016-12-01 13:13 | DS ---
Physical Exam: SUBJECTIVE: Patient seen and examined No new complaints. Had no fever or joint pains overnight. Feels better today. OBJECTIVE: Vital Signs Period Temp Pulse Resp BP Sys/[place] Pulse Ox Last 24 Hr 98.2 F-98.7 F 56-67 18-20 131-152/65-87 98-99 PHYSICAL EXAM GENERAL: The patient is awake, alert, and fully oriented, in no acute distress. HEAD: Normal with no signs of trauma. EYES: PERRL, extraocular movements intact, sclera anicteric, conjunctiva clear. ENT: Ears normal, nares patent, oropharynx clear without exudates, moist mucous membranes. NECK: Trachea midline, full range of motion, supple. LUNGS: Breath sounds equal, clear to auscultation bilaterally, no wheezes, no crackles, no accessory muscle use. HEART: Regular rate and rhythm, S1, S2 without murmur, rub or gallop. ABDOMEN: Soft, nontender, nondistended, normoactive bowel sounds, no guarding, no rebound, no hepatosplenomegaly, no masses. EXTREMITIES: 2+ pulses, warm, well-perfused, no edema. NEUROLOGICAL: Cranial nerves II through XII grossly intact. Normal speech, gait not observed. PSYCH: Normal mood, normal affect. SKIN: Warm, dry, normal turgor, no rashes or lesions noted. LABS Laboratory Results - last 24 hr 12/01/16 12/01/16 05:41 06:45 Sodium 142 Potassium 4.3 D Chloride 107 Carbon Dioxide 31 D Anion Gap 4 L BUN 5 L D Creatinine 0.7 Creat Clearance w eGFR > 60 POC Glucometer 89 Random Glucose 96 Calcium 8.4 L Total Bilirubin 0.5 AST 91 H ALT 136 H Alkaline Phosphatase 61 Total Protein 6.7 Albumin 2.8 L HOSPITAL COURSE: Date of Admission:11/23/16 Date of Discharge: 12/01/16 56 y/o lady with h/o HTN, who presented with 1 month hx of fever, presented with myalgia, rash and arthralgia following a history of recent travel to [facility]. She was investigated as a fever of unknown origin and managed supportively for Chikungunya fever R/O Dengue fever and other viral, tick borne, arboviral, parasitic and bacterial conditions. Most of the tests she was worked up for returned negative. She had acute transaminitis that was followed till it began to trend down. Recurrent fevers and arthralgia were managed with Ibuprofen (not to take tylenol ) and generous intravenous fluids. She was given Benadryl PRN for the itchy generalized maculaopapular rash. She was also managed for high blood pressure with atenolol only at 100 mg, with Chlorthalidone discontinued in the meantime since she was being rehydrated. She was on metformin from the [place] but had never been diagnosed as diabetic in the [place], her Hemoglobin A1c while on admission was 6.4, so the metformin was discontinued for her to follow up with her primary doctor- Dr. Mejia She is encouraged to continue to take liberal oral fluids. Minutes to complete discharge: 52 Discharge Summary Reason For Visit: FEVER,POLYARTHRITIS,RASH,NAUSEA Current Active Problems Chikungunya (Acute) Fever (Acute) Nausea (Acute) Polyarthritis (Acute) Rash (Acute) Condition: Stable - Instructions Diet, Activity, Other Instructions: You were admitted for having recurrent fevers for a month, with pain in your joints and rashes. This started after you had been in the [place] for about 2 months prior. We ran a lot of tests on you to see if you had hepatitis, malaria or other blood parasites, HIV infection, Lyme disease or bacterial infections such as syphilis. The above listed tests were negative. Based on your history of symptoms and recent travel, we determined that you were likely suffering from Chikungunya and provided you with supportive treatment in the form of intravenous fluids and analgesics/antipyretics. While you were here, we also managed your hypertension, using only Atenolol, without the chorthalidone. As part of the progress of the disease, you had recurrent fevers, intermittent joint pains and rashes over both upper and lower limbs and abdomen, which have resolved. Your liver enzymes were also rising, but started to come back down. This disease could leave you experiencing joint pains and swellings in the future. If this happens, let your primary care doctor know that you should be managed for the symptoms. Continue to keep yourself well hydrated and take ibuprofen if you have any pains in your joints. Do not use tylenol because it could affect your liver. Please follow up with your primary doctor- Dr Scott Mejia in one week for your blood glucose monitoring with FPG, HbA1C, or glucose tolerance test, BP and follow up for this admission. Follow a diabetic diet. If you your symptoms do not improve or you think they are worsening, please see your primary care doctor or go to the nearest emergency room Referrals: STAFF,NOT ON [Primary Care Provider] - Disposition: HOME - Home Medications Comprehensive Discharge Medication List: Ambulatory Orders Atenolol [Tenormin -] 100 mg PO DAILY #30 tablet 12/01/16 This patient is new to me today: No Emergency Visit: Yes ED Registration Date: 11/23/16 Care time: The patient presented to the Emergency Department on the above date and was hospitalized for further evaluation of their emergent condition. Critical Care patient: No - Discharge Referral Referred to [facility] Med [facility] No
[2016-12-03 00:09] LABS: BABESIA MICROTI ANTIBODY IGG <1:10 (Neg:<1:10)
[2016-12-05 00:07] LABS: DENGUE FEVER VIRUS AB.IGG >15.00 ISR (<1.65); DENGUE FEVER VIRUS AB.IGM 1.35 ISR (<1.65)
== END 2016-12-01 13:29 | disposition home or self-care (01) | DRG 723 ==
LOC: JER 02:22 → JERBED 13:08 → J5S 15:58 → JERBED 20:06 → OBSVTOIN 20:06
PROVIDERS: ADMIT Internal Medicine; ATTEND Internal Medicine
DX: A90 Dengue fever [classical dengue] (principal); A92.0 Chikungunya virus disease; E87.6 Hypokalemia; M13.88 Other specified arthritis, other site; R11.0 Nausea; I10 Essential (primary) hypertension; R74.0 Nonspecific elevation of levels of transaminase and lactic acid dehydrogenase [LDH]; E11.9 Type 2 diabetes mellitus without complications; M25.50 Pain in unspecified joint; R50.9 Fever, unspecified; M79.1 Myalgia; R21 Rash and other nonspecific skin eruption; S40.021A Contusion of right upper arm, initial encounter; X58.XXXA Exposure to other specified factors, initial encounter; Y93.89 Activity, other specified
CPT/HCPCS: 36415; 71010-TC; 71020-TC; 76705-TC; 80048; 80053; 80074; 80076; 81003; 81015; 82930; 83036; 83605; 83615; 83735; 84100; 84484; 85025; 85610; 85730; 86038; 86140; 86225; 86431; 86593; 86618; 86622; 86666; 86704; 86706; 86708; 86709; 86753; 86790; 87040; 87086; 87186; 87207; 87340; 87389; 93005; 93010; 93306-TC; 93971; 97116-GP; 97161-GP; 99284-25; G0378; J1644

== ENCOUNTER 2017-04-07 01:35 | Inpatient (IN) | payer OTHER ==
--- NOTE | 2017-04-07 03:13 | PDOC ---
History of Present Illness - General History Source: Patient, Family Exam Limitations: No Limitations - History of Present Illness Initial Comments: 04/07/17 03:05 56F with pmh of HTN who come back today from a month long trip to the [facility] [place] presents with month-long on and off fever which was up to the 103-104 range treated with IV fluids. States there was no obvious source for the fever except for weakness, some difficulty urinating and swollen legs. Stopped taking her blood pressure medication since it is currently so low. <Sina Hawkins - Last Filed: 04/07/17 07:22> <Antonette Fisher - Last Filed: 04/11/17 20:58> - General Chief Complaint: Cold Symptoms Stated Complaint: FEVER Time Seen by Provider: 04/07/17 02:30 Past History - Past Medical History Anemia: No Asthma: No Cancer: No Cardiac Disorders: No CVA: No COPD: No DVT: No Dementia: No Diabetes: Yes Dialysis: No GI Disorders: No Disorders: No HTN: Yes Hypercholesterolemia: No Kidney Stones: No Liver Disease: No Psychiatric Problems: No Seizures: No Thyroid Disease: No Lung CA: No - Surgical History Abdominal Surgery: No Appendectomy: No Cardiac Surgery: No Cholecystectomy: No Gastric Stapling: No GI Surgery: No Lung Surgery: No Neurologic Surgery: No - Suicide/Smoking/Psychosocial Hx Smoking History: Never smoked Have you smoked in the past 12 months: No Information on smoking cessation initiated: No Hx Alcohol Use: No Drug/Substance Use Hx: No Substance Use Type: None <Sina Hawkins - Last Filed: 04/07/17 07:22> <Antonette Fisher - Last Filed: 04/11/17 20:58> - Past Medical History Allergies/Adverse Reactions: Allergies Allergy/AdvReac Type Severity Reaction Status Date / Time aspirin Allergy Verified 04/09/17 09:47 Iodinated Contrast- Oral and AdvReac Intermediate Difficulty Verified 04/09/17 09:50 IV Dye Breathing Penicillins AdvReac Verified 04/11/17 13:17 Home Medications: Ambulatory Orders Atenolol [Tenormin -] 100 mg PO DAILY #30 tablet 12/01/16 Review of Systems - Review of Systems Able to Perform ROS?: Yes Constitutional: Yes: Fever HEENTM: No: Symptoms Reported Respiratory: No: Symptoms reported Cardiac (ROS): No: Symptoms Reported ABD/GI: No: Symptoms Reported : Yes: Symptoms Reported, See HPI Musculoskeletal: Yes: See HPI Integumentary: No: Symptoms Reported Neurological: No: Symptoms reported <Sina Hawkins - Last Filed: 04/07/17 07:22> *Physical Exam - Vital Signs Last Vital Signs Temp Pulse Resp BP Pulse Ox 99.5 F 108 H 20 115/58 97 04/07/17 02:30 04/07/17 02:30 04/07/17 02:30 04/07/17 02:30 04/07/17 02:30 - Physical Exam General Appearance: Yes: Nourished, Appropriately Dressed HEENT: positive: EOMI, NICOLETTE, Normal ENT Inspection Respiratory/Chest: positive: Lungs Clear, Normal Breath Sounds. negative: Respiratory Distress Cardiovascular: positive: Regular Rhythm, S1, S2, Tachycardia Gastrointestinal/Abdominal: positive: Normal Bowel Sounds, Flat. negative: Tender Musculoskeletal: positive: Normal Inspection. negative: CVA Tenderness Extremity: positive: Pedal Edema (bilateral) Integumentary: positive: Normal Color, Dry, Warm <Sina Hawkins - Last Filed: 04/07/17 07:22> - Vital Signs Last Vital Signs Temp Pulse Resp BP Pulse Ox 102.9 F H 88 20 129/68 92 L 04/11/17 17:16 04/11/17 14:30 04/11/17 17:16 04/11/17 17:16 04/11/17 09:00 <Antonette Fisher - Last Filed: 04/11/17 20:58> ED Treatment Course - LABORATORY CBC & Chemistry Diagram: 04/07/17 03:00 04/07/17 03:00 - RADIOLOGY Radiology Studies Ordered: Category Date Time Status CHEST X-RAY PORTABLE* [RAD] Stat Radiology 04/07/17 02:41 Taken <Sina Hawkins - Last Filed: 04/07/17 07:22> - LABORATORY CBC & Chemistry Diagram: 04/11/17 06:30 04/11/17 06:30 - ADDITIONAL ORDERS Additional order review: 04/07/17 03:15 Blood Culture - Preliminary Blood - Peripheral Venous NO GROWTH OBTAINED AFTER 96 HOURS, INCUBATION TO CONTINUE FOR 1 DAYS. 04/07/17 03:02 Blood Culture - Preliminary Blood - Peripheral Venous NO GROWTH OBTAINED AFTER 96 HOURS, INCUBATION TO CONTINUE FOR 1 DAYS. 04/07/17 03:02 Urine Culture - Final Urine - Urine Clean Catch Contaminated: Please Repeat 04/07/17 05:10 Influenza Types A,B Antigen (SARAH) - Final Nasopharyngeal Swab - Final 04/07/17 03:00 RBC 3.37 L MCV 82.1 MCHC 33.2 RDW 15.2 D MPV 7.3 L Neutrophils % No Result Required. Lymphocytes % No Result Required. - Medications Given in the ED: ED Medications Discontinued Medications Generic Name Dose Route Start Last Admin Trade Name Freq PRN Reason Stop Dose Admin Acetaminophen 1,000 mg 04/07/17 03:23 04/07/17 03:32 Ofirmev Injection - IVPB 04/07/17 03:24 1,000 mg ONCE ONE Administration Acetaminophen 650 mg 04/07/17 08:52 04/07/17 20:18 Tylenol - PO 650 mg Q4H PRN Administration FEVER Acetaminophen 1,000 mg 04/10/17 08:02 04/10/17 08:08 Ofirmev Injection - IVPB 04/10/17 08:03 1,000 mg ONCE ONE Administration Al Hydroxide/Mg Hydroxide 30 ml 04/10/17 08:30 04/10/17 08:49 Mylanta Suspension - PO 04/10/17 08:31 30 ml ONCE ONE Administration Diphenhydramine HCl 50 mg 04/08/17 17:46 04/08/17 17:59 Benadryl Injection - IVPUSH 04/08/17 17:47 50 mg ONCE ONE Administration Enoxaparin Sodium 40 mg 04/08/17 11:00 04/10/17 10:35 Lovenox - SQ 40 mg DAILY JOAQUÍN Administration Sodium Chloride 1,000 mls @ 1,000 mls/hr 04/07/17 03:23 04/07/17 03:32 Normal Saline - IV 04/07/17 04:22 1,000 mls/hr ASDIR STA Administration Sodium Chloride 1,000 mls @ 83 mls/hr 04/07/17 09:00 04/07/17 09:20 1/2 Normal Saline IV 83 mls/hr ASDIR JOAQUÍN Administration Levofloxacin 750 mg in 150 mls @ 100 mls/hr 04/07/17 08:56 04/07/17 09:19 Levaquin 750 Mg Premixed Ivpb - IVPB 04/07/17 10:25 100 mls/hr ONCE ONE Administration Sodium Chloride 1,000 mls @ 83 mls/hr 04/07/17 11:30 04/08/17 11:53 Normal Saline - IV Not Given ASDIR JOAQUÍN Famotidine 20 mg in 12 mls @ 144 mls/hr 04/08/17 17:46 04/08/17 17:59 Pepcid 20 Mg/12 Ml Push IVPUSH 04/08/17 17:50 144 mls/hr ONCE ONE Administration Vancomycin HCl 1,250 mg/ 250 mls @ 250 mls/hr 04/08/17 22:00 04/10/17 07:17 Dextrose IVPB Not Given BID JOAQUÍN Protocol Vancomycin HCl 1,250 mg/ 250 mls @ 166.667 mls/hr 04/08/17 22:00 04/08/17 22: 20 Dextrose IVPB 04/08/17 23:29 166.667 mls/hr ONCE ONE Administration Piperacillin Sod/Tazobactam 100 mls @ 200 mls/hr 04/08/17 19:15 04/09/17 01: 49 Sod 3.375 gm/ Dextrose IVPB 04/09/17 02:29 200 mls/hr Q8H-IV JOAQUÍN Administration Ampicillin Sodium/Sulbactam 100 mls @ 200 mls/hr 04/09/17 14:00 04/11/17 11: 57 Sodium 3 gm/ Sodium Chloride IVPB 200 mls/hr Q8H-IV JOAQUÍN Administration Sodium Chloride 1,000 mls @ 83 mls/hr 04/09/17 20:15 04/09/17 22:07 Normal Saline - IV 83 mls/hr ASDIR JOAQUÍN Administration Insulin Aspart 1 vial 04/07/17 11:00 04/10/17 07:16 Novolog Vial Sliding Scale - SQ Not Given ACHS JOAQUÍN Protocol Methylprednisolone Sodium Succinate 125 mg 04/08/17 17:41 04/08/17 17:59 Solu-Medrol - IVPUSH 04/08/17 17:42 125 mg ONCE ONE Administration Methylprednisolone Sodium Succinate 125 mg 04/08/17 17:46 04/08/17 18:00 Solu-Medrol - IVPUSH 04/08/17 17:47 Not Given ONCE ONE Metoclopramide HCl 10 mg 04/11/17 18:43 04/11/17 18:57 Reglan - PO 04/11/17 18:44 10 mg ONCE ONE Administration Piperacillin/Tazobactam/Dextrose 3.375 gm 04/08/17 18:30 04/10/17 07:16 Zosyn 3.375gm Ivpb (Premix) IVPB Not Given Q8H-IV JOAQUÍN <Antonette Fisher - Last Filed: 04/11/17 20:58> Medical Decision Making - Medical Decision Making 04/07/17 03:21 Septic workup;. 04/07/17 04:04 White count of 14. Lactate pending Negative UA <Sina Hawkins - Last Filed: 04/07/17 07:22> *DC/Admit/Observation/Transfer - Discharge Dispostion Admit: Yes <Sina Hawkins - Last Filed: 04/07/17 07:22> <Antonette Fisher - Last Filed: 04/11/17 20:58> Diagnosis at time of Disposition: Fever Attending Attestation - Resident Resident Name: Sina Hawkins - ED Attending Attestation I have performed the following: I have examined & evaluated the patient, The case was reviewed & discussed with the resident, I agree w/resident's findings & plan - HPI HPI: 04/11/17 20:56 Pt comes with fever x 4 weeks on and off. - Physicial Exam PE: 04/11/17 20:57 Agree with resident exam - Medical Decision Making 04/11/17 20:57 Pt has elevated WBC count. I am concerned that she may have a tropical illness. She will require ID consult and inpatient eval for fever of unknown origin. <Antonette Fisher - Last Filed: 04/11/17 20:58>
[2017-04-07 03:17] LABS: HEMATOCRIT 27.6 % (32.4-45.2); HEMOGLOBIN 9.2 GM/dL (10.7-15.3); MCH 27.2 pg (25.7-33.7); MCHC 33.2 g/dl (32.0-36.0); MEAN CELL VOLUME 82.1 fl (80-96); MEAN PLT VOLUME 7.3 fl (7.5-11.1); PLATELET COUNT 291 K/MM3 (134-434); RBC 3.37 M/mm3 (3.60-5.2); RDW 15.2 % (11.6-15.6)
[2017-04-07 03:19] LABS: URINE APPEARANCE SLCLOUDY; URINE BILIRUBIN NEGATIVE (NEGATIVE); URINE BLOOD NEGATIVE (NEGATIVE); URINE COLOR AMBER; URINE GLUCOSE (UA) NEGATIVE (NEGATIVE); URINE KETONE NEGATIVE (NEGATIVE); URINE LEUK ESTERASE NEGATIVE (NEGATIVE); URINE NITRITE NEGATIVE (NEGATIVE)
[2017-04-07] MEDS ORDERED: ACETAMINOPHEN 1000 MG/100 ML VIAL (NON FORMULARY) IVPB ONE (03:23)
[2017-04-07] MEDS ORDERED: SODIUM CHLORIDE 1,000 ML IV STA (03:23)
[2017-04-07 03:24] LABS: VENOUS PC02 43.4 mmHg (38-52); VENOUS PH 7.4 (7.32-7.42); VENOUS PO2 21.1 mmHg (28-48)
[2017-04-07 03:25] LABS: URINE PROTEIN 2+ (NEGATIVE)
[2017-04-07] MEDS ORDERED: ACETAMINOPHEN INJECTION 100 ML IVPB ONE (03:28)
[2017-04-07 03:41] LABS: ALBUMIN 2.3 g/dl (3.4-5.0); ANION GAP 6 (8-16); BILIRUBIN,TOTAL 0.6 mg/dL (0.2-1.0); BLOOD UREA NITROGEN 8 mg/dL (7-18); CALCIUM 7.7 mg/dL (8.5-10.1); CHLORIDE 100 mmol/L (98-107); CO2 28 mmol/L (21-32); CREATININE 0.7 mg/dL (0.55-1.02); GLUCOSE,RANDOM 100 mg/dL (74-106); POTASSIUM 3.9 mmol/L (3.5-5.1); SGOT/AST 181 U/L (15-37); SGPT/ALT 72 U/L (12-78); SODIUM 134 mmol/L (136-145)
[2017-04-07 03:43] LABS: ALK PHOS 104 U/L (45-117)
[2017-04-07 03:53] LABS: INR 1.22 (0.82-1.09); PROTHROMBIN TIME (PATIENT) 13.8 SEC (9.98-11.88)
[2017-04-07 03:54] LABS: EPI CELLS MODERATE /HPF (FEW); URINE BACTERIA RARE /hpf (NONE SEEN); URINE HYALINE CAST 30 /lpf; URINE MUCUS MANY
[2017-04-07 03:55] LABS: ACTIVATED PTT 32.4 SECONDS (26.9-34.4)
[2017-04-07 05:03] LABS: ANISOCYTOSIS 1+
--- NOTE | 2017-04-07 05:51 | PDOC ---
Attending Attestation - Resident Resident Name: Sina Hawkins - ED Attending Attestation I have performed the following: I have examined & evaluated the patient, The case was reviewed & discussed with the resident, I agree w/resident's findings & plan - HPI HPI: 04/07/17 05:50 Pt comes with fever x over 1 month. SHe traveled to and from . She states that when she gets a fever her entire body's joints hurt. She has no cough and no runny nose. She has no dysuria. 04/07/17 06:09 PT states that she has had chikungunya at the in the past and she had degue in the past, but that caused worse joint pains. Now her joint pains aremilder. - Physicial Exam PE: 04/07/17 06:10 Agree with resident exam - Medical Decision Making 04/07/17 06:10 Pt tells me that at the she was told that she has a parasite, a "aroldo" or dog parasite. Pt has elevated eosinophil count, and we cannot explaion her fever or elevated WBC, so I will admit her for ID eval. CXR is normal. EKG is NSR; old flat flipped T waves in T2-T4
--- NOTE | 2017-04-07 08:07 | HP ---
CHIEF COMPLAINT: "I have a fever" PCP:Dr. Mejia HISTORY OF PRESENT ILLNESS: Date of Admission:11/23/16 Date of Discharge: 12/01/16 This is a 56 yo F with PMH of HTN, diet controlled DM, last admitted 11/23/16-12/01 for fever of unknown origin, who presents due to fever x 1 mo. She has been residing in for the past several months, where the fever started. It is associated with dysuria, mild flank pain, mild sore throat and dizziness. She has been febrile every day and has been taking tylenol or ibuprophen for the fevers as high as 104F. She denies sick contacts. She reports similar fevers that prompted her last admission in november that were associated with polyarthritis/myalgia, that is not present now. During last admission, she was worked up by ID and Rheum for Chikungunya, Dengue fever and other viral, tick borne, arboviral, parasitic and bacterial conditions. Had + Dengue fever IgG. She did have a UA consistent with UTI at that time. She was managed supportive w /o abx. At that time she also had acute transaminitis that was followed till it began to trend down. Last month in she was seen by a doctor, who told her she has infection in blood and kidney as well as kidney stones on US and treated her with IV medication that transiently caused some diarrhea. Her symptoms have not resolved. She denies rhinorrhea, h/a, CP, sob, cough, abd pain, n/v, LE pain. ER course was notable for: (1)CXR, EKG: unremarkable (2)labs (3)IVF Recent Travel: PAST MEDICAL HISTORY: as above PAST SURGICAL HISTORY: fibroid raash Social History: Smoking: denies Alcohol:denies Drugs: denies Family History: Allergies aspirin Adverse Reaction (Verified 04/07/17 02:30) Penicillin: rash HOME MEDICATIONS: Home Medications Medication Instructions Recorded Atenolol [Tenormin -] 100 mg PO DAILY #30 tablet 12/01/16 REVIEW OF SYSTEMS CONSTITUTIONAL: Absent: loss of appetite, weight change HEENT: Absent: rhinorrhea, nasal congestion, difficulty swallowing CARDIOVASCULAR: Absent: chest pain, syncope, palpitations, irregular heart rate, lightheadedness RESPIRATORY: Absent: cough, shortness of breath, dyspnea with exertion, orthopnea, wheezing, stridor, hemoptysis GASTROINTESTINAL: Absent: abdominal pain, abdominal distension, nausea, vomiting, constipation, melena, hematochezia GENITOURINARY: Absent:hematuria, genital pain MUSCULOSKELETAL: Absent: myalgia, arthralgia, joint swelling, back pain, neck pain SKIN: Absent: rash, itching, pallor HEMATOLOGIC/IMMUNOLOGIC: Absent: easy bleeding, easy bruising ENDOCRINE: Absent: unexplained weight gain, unexplained weight loss NEUROLOGIC: Absent: headache, focal weakness or paresthesias PSYCHIATRIC: Absent: anxiety, depression PHYSICAL EXAMINATION Vital Signs - 24 hr 04/07/17 04/07/17 02:30 07:16 Temperature 99.5 F 97.9 F Pulse Rate 108 H Pulse Rate [ 72 Left Radial] Respiratory 20 14 Rate Blood Pressure 115/58 Blood Pressure 130/85 [Left Arm] O2 Sat by Pulse 97 96 Oximetry (%) GENERAL: Awake, alert, and fully oriented, in no acute distress. HEAD: Normal with no signs of trauma. EYES: Pupils equal, round and reactive to light, extraocular movements intact, sclera anicteric, conjunctiva clear. No lid lag. EARS, NOSE, THROAT: Moist mucous membranes. NECK: supple LUNGS: Breath sounds equal, clear to auscultation bilaterally. HEART: Regular rate and rhythm, normal S1 and S2, Grade III systolic Ej murmur ABDOMEN: Soft, nontender, not distended, normoactive bowel sounds, no guarding, no rebound, no masses. No hepatomegaly or splenomegaly. MUSCULOSKELETAL: mild b/l CVA tenderness UPPER EXTREMITIES: 2+ pulses, warm, well-perfused. No cyanosis. No clubbing. No peripheral edema. LOWER EXTREMITIES: 2+ pulses, warm, well-perfused. No calf tenderness. No peripheral edema. NEUROLOGICAL: Cranial nerves II-XII grossly intact. Normal speech. PSYCHIATRIC: Cooperative. Good eye contact. Appropriate mood and affect. SKIN: Warm, dry Laboratory Results - last 24 hr 04/07/17 04/07/17 04/07/17 03:00 03:00 03:00 WBC 14.0 H D RBC 3.37 L Hgb 9.2 L Hct 27.6 L MCV 82.1 MCH 27.2 MCHC 33.2 RDW 15.2 D Plt Count 291 D MPV 7.3 L Total Counted 100 Neutrophils % No Result Required. Neutrophils % (Manual) 80.0 D Lymphocytes % No Result Required. Lymphocytes % (Manual) 7.0 L D Monocytes % (Manual) 7 Eosinophils % (Manual) 6.0 H D Differential Comment Man diff performed Platelet Estimate Platelet Comment Polychromasia 1+ Anisocytosis 1+ PT with INR 13.80 H INR 1.22 H PTT (Actin FS) 32.4 VBG pH POC VBG pCO2 POC VBG pO2 Mixed VBG HCO3 Sodium 134 L Potassium 3.9 Chloride 100 Carbon Dioxide 28 Anion Gap 6 L BUN 8 Creatinine 0.7 Creat Clearance w eGFR > 60 Random Glucose 100 Lactic Acid Calcium 7.7 L Total Bilirubin 0.6 AST 181 H ALT 72 Alkaline Phosphatase 104 Creatine Kinase 31 Troponin I < 0.02 B-Natriuretic Peptide Total Protein 7.0 Albumin 2.3 L Urine Color Urine Appearance Urine pH Ur Specific [place] Urine Protein Urine Glucose (UA) Urine Ketones Urine Blood Urine Nitrite Urine Bilirubin Urine Urobilinogen Ur Leukocyte Esterase Urine WBC (Auto) Urine RBC (Auto) Ur Epithelial Cells Urine Bacteria Hyaline Casts Urine Mucus Blood Type Antibody Screen 04/07/17 04/07/17 04/07/17 03:00 03:00 03:00 WBC RBC Hgb Hct MCV MCH MCHC RDW Plt Count MPV Total Counted Neutrophils % Neutrophils % (Manual) Lymphocytes % Lymphocytes % (Manual) Monocytes % (Manual) Eosinophils % (Manual) Differential Comment Platelet Estimate Platelet Comment Polychromasia Anisocytosis PT with INR INR PTT (Actin FS) VBG pH POC VBG pCO2 POC VBG pO2 Mixed VBG HCO3 Sodium Potassium Chloride Carbon Dioxide Anion Gap BUN Creatinine Creat Clearance w eGFR Random Glucose Lactic Acid 1.1 Calcium Total Bilirubin AST ALT Alkaline Phosphatase Creatine Kinase Troponin I B-Natriuretic Peptide 156.17 H Total Protein Albumin Urine Color Urine Appearance Urine pH Ur Specific [place] Urine Protein Urine Glucose (UA) Urine Ketones Urine Blood Urine Nitrite Urine Bilirubin Urine Urobilinogen Ur Leukocyte Esterase Urine WBC (Auto) Urine RBC (Auto) Ur Epithelial Cells Urine Bacteria Hyaline Casts Urine Mucus Blood Type O POSITIVE Antibody Screen Negative 04/07/17 04/07/17 03:02 03:05 WBC RBC Hgb Hct MCV MCH MCHC RDW Plt Count MPV Total Counted Neutrophils % Neutrophils % (Manual) Lymphocytes % Lymphocytes % (Manual) Monocytes % (Manual) Eosinophils % (Manual) Differential Comment Platelet Estimate Platelet Comment Polychromasia Anisocytosis PT with INR INR PTT (Actin FS) VBG pH 7.40 POC VBG pCO2 43.4 POC VBG pO2 21.1 L Mixed VBG HCO3 26.6 H Sodium Potassium Chloride Carbon Dioxide Anion Gap BUN Creatinine Creat Clearance w eGFR Random Glucose Lactic Acid Calcium Total Bilirubin AST ALT Alkaline Phosphatase Creatine Kinase Troponin I B-Natriuretic Peptide Total Protein Albumin Urine Color Patti Urine Appearance Slcloudy Urine pH 5.0 Ur Specific [place] 1.028 Urine Protein 2+ H Urine Glucose (UA) Negative Urine Ketones Negative Urine Blood Negative Urine Nitrite Negative Urine Bilirubin Negative Urine Urobilinogen 2.0 H Ur Leukocyte Esterase Negative Urine WBC (Auto) 3 Urine RBC (Auto) None Ur Epithelial Cells Moderate Urine Bacteria Rare Hyaline Casts 30 Urine Mucus Many Blood Type Antibody Screen ASSESSMENT/PLAN: This is a 56 yo F with PMH of HTN, diet controlled DM, last admitted 11/23/16-12/01 for fever of unknown origin, who presents due to fever x 1 mo. Recurrentl Fever of unknown origin. -previous blood smears for parasites negative, previous rheum w/u negative -leukocytosis 14, left shift -reports being diagnosed with nephrolithiasis, uti, bacteremia in DR; will get Renal/bladder US, administer IVF and levaquin -tylenol for fever prn -possible recurrent Dengue fever or new parasitis infection; consider repeat serologies -ID consult Transaminitis -AST 181; trend -liver US Hyponatremia -134 -slightly hypoosmolar 276 -obtain urine Na, osm -NS IVF HTN -resume atenolol with hold parameters Diet controlled DM -BGM, ISS -diabetic diet FEN [id number] Problem List - Problem (1) Dengue fever Code(s): A90 - DENGUE FEVER [CLASSICAL DENGUE] (2) UTI (urinary tract infection) Code(s): N39.0 - URINARY TRACT INFECTION, SITE NOT SPECIFIED (3) Hyponatremia Code(s): E87.1 - HYPO-OSMOLALITY AND HYPONATREMIA (4) Transaminitis Code(s): R74.0 - NONSPEC ELEV OF LEVELS OF TRANSAMNS & LACTIC ACID DEHYDRGNSE (5) Fever Code(s): R50.9 - FEVER, UNSPECIFIED Visit type - Emergency Visit Emergency Visit: Yes ED Registration Date: 04/07/17 Care time: The patient presented to the Emergency Department on the above date and was hospitalized for further evaluation of their emergent condition. - New Patient This patient is new to me today: Yes Date on this admission: 04/07/17 - Critical Care Critical Care patient: No
--- NOTE | 2017-04-07 08:43 | PN ---
Teaching Attending Note Name of Resident: Isabel Lamb ATTENDING PHYSICIAN STATEMENT I saw and evaluated the patient. I reviewed the resident's note and discussed the case with the resident. I agree with the resident's findings and plan as documented. SUBJECTIVE: OBJECTIVE: Vital Signs Period Temp Pulse Resp BP Sys/[place] Pulse Ox Last 24 Hr 97.9 F-99.5 F 72-108 14-20 115-130/58-85 96-97 Laboratory Tests 04/07/17 04/07/17 04/07/17 03:00 03:00 03:00 WBC 14.0 H D RBC 3.37 L Hgb 9.2 L Hct 27.6 L MCV 82.1 MCH 27.2 MCHC 33.2 RDW 15.2 D Plt Count 291 D MPV 7.3 L Total Counted 100 Neutrophils % No Result Required. Neutrophils % (Manual) 80.0 D Lymphocytes % No Result Required. Lymphocytes % (Manual) 7.0 L D Monocytes % (Manual) 7 Eosinophils % (Manual) 6.0 H D Differential Comment Man diff performed Platelet Estimate Platelet Comment Polychromasia 1+ Anisocytosis 1+ PT with INR 13.80 H INR 1.22 H PTT (Actin FS) 32.4 VBG pH POC VBG pCO2 POC VBG pO2 Mixed VBG HCO3 Sodium 134 L Potassium 3.9 Chloride 100 Carbon Dioxide 28 Anion Gap 6 L BUN 8 Creatinine 0.7 Creat Clearance w eGFR > 60 Random Glucose 100 Lactic Acid Calcium 7.7 L Total Bilirubin 0.6 AST 181 H ALT 72 Alkaline Phosphatase 104 Creatine Kinase 31 Troponin I < 0.02 B-Natriuretic Peptide Total Protein 7.0 Albumin 2.3 L Urine Color Urine Appearance Urine pH Ur Specific [place] Urine Protein Urine Glucose (UA) Urine Ketones Urine Blood Urine Nitrite Urine Bilirubin Urine Urobilinogen Ur Leukocyte Esterase Urine WBC (Auto) Urine RBC (Auto) Ur Epithelial Cells Urine Bacteria Hyaline Casts Urine Mucus Blood Type Antibody Screen 04/07/17 04/07/17 04/07/17 03:00 03:00 03:00 WBC RBC Hgb Hct MCV MCH MCHC RDW Plt Count MPV Total Counted Neutrophils % Neutrophils % (Manual) Lymphocytes % Lymphocytes % (Manual) Monocytes % (Manual) Eosinophils % (Manual) Differential Comment Platelet Estimate Platelet Comment Polychromasia Anisocytosis PT with INR INR PTT (Actin FS) VBG pH POC VBG pCO2 POC VBG pO2 Mixed VBG HCO3 Sodium Potassium Chloride Carbon Dioxide Anion Gap BUN Creatinine Creat Clearance w eGFR Random Glucose Lactic Acid 1.1 Calcium Total Bilirubin AST ALT Alkaline Phosphatase Creatine Kinase Troponin I B-Natriuretic Peptide 156.17 H Total Protein Albumin Urine Color Urine Appearance Urine pH Ur Specific [place] Urine Protein Urine Glucose (UA) Urine Ketones Urine Blood Urine Nitrite Urine Bilirubin Urine Urobilinogen Ur Leukocyte Esterase Urine WBC (Auto) Urine RBC (Auto) Ur Epithelial Cells Urine Bacteria Hyaline Casts Urine Mucus Blood Type O POSITIVE Antibody Screen Negative 04/07/17 04/07/17 03:02 03:05 WBC RBC Hgb Hct MCV MCH MCHC RDW Plt Count MPV Total Counted Neutrophils % Neutrophils % (Manual) Lymphocytes % Lymphocytes % (Manual) Monocytes % (Manual) Eosinophils % (Manual) Differential Comment Platelet Estimate Platelet Comment Polychromasia Anisocytosis PT with INR INR PTT (Actin FS) VBG pH 7.40 POC VBG pCO2 43.4 POC VBG pO2 21.1 L Mixed VBG HCO3 26.6 H Sodium Potassium Chloride Carbon Dioxide Anion Gap BUN Creatinine Creat Clearance w eGFR Random Glucose Lactic Acid Calcium Total Bilirubin AST ALT Alkaline Phosphatase Creatine Kinase Troponin I B-Natriuretic Peptide Total Protein Albumin Urine Color Patti Urine Appearance Slcloudy Urine pH 5.0 Ur Specific [place] 1.028 Urine Protein 2+ H Urine Glucose (UA) Negative Urine Ketones Negative Urine Blood Negative Urine Nitrite Negative Urine Bilirubin Negative Urine Urobilinogen 2.0 H Ur Leukocyte Esterase Negative Urine WBC (Auto) 3 Urine RBC (Auto) None Ur Epithelial Cells Moderate Urine Bacteria Rare Hyaline Casts 30 Urine Mucus Many Blood Type Antibody Screen Home Medications Medication Instructions Recorded Atenolol [Tenormin -] 100 mg PO DAILY #30 tablet 12/01/16 ASSESSMENT AND PLAN:
[2017-04-07] MEDS ORDERED: SODIUM CHLORIDE 0.45% 1,000 ML IV SCH (09:00)
[2017-04-07] MEDS ORDERED: ACETAMINOPHEN 325 MG TABLET (FP) ONE (09:11)
[2017-04-07] MEDS: ACETAMINOPHEN 325 MG TABLET (FP) PO PRN ×3 (09:19→20:18)
[2017-04-07] MEDS: ATENOLOL 50 MG TABLET (FP) PO SCH ×2 (10:18→14:04)
--- NOTE | 2017-04-07 12:27 | CON.ID ---
Consult Consult Specialty:: infectious diseases Reason for Consultation:: fever - History of Present Illness Chief Complaint: fever History of Present Illness: This is a 56 yo F with PMH of HTN, diet controlled DM, who presents due to fever x 1 mo. Patient who was admitted with similar symptoms before when she came from [facility] and was worked up and that time thought to be dengue Once patient became alright it seems she again went to and has been having fever for the past one month. It is associated with dysuria, mild flank pain, mild sore throat and dizziness. She has been febrile every day and has been taking tylenol or ibuprophen for the fevers as high as 104F. She denies sick contacts. Last month in she was seen by a doctor, who told her she has infection in blood and kidney as well as kidney stones on US and treated her with IV medication that transiently caused some diarrhea. Her symptoms have not resolved. patient looks stable currently but her symptoms have been fever according to him patient did spike fever here also once but since then has been afebrile she does also have high wbc on blood work and abn liver enzymes - History Source History Provided By: Patient, Medical Record Limitations to Obtaining History: Language Barrier - Alcohol/Substance Use Hx Alcohol Use: No - Smoking History Smoking history: Never smoked Have you smoked in the past 12 months: No Home Medications - Allergies Allergies/Adverse Reactions: Allergies Allergy/AdvReac Type Severity Reaction Status Date / Time aspirin AdvReac Verified 04/07/17 02:30 - Home Medications Home Medications: Ambulatory Orders Atenolol [Tenormin -] 100 mg PO DAILY #30 tablet 12/01/16 Review of Systems - Review of Systems Constitutional: reports: Fever Eyes: reports: No Symptoms HENT: reports: No Symptoms Neck: reports: No Symptoms Cardiovascular: reports: No Symptoms Respiratory: reports: No Symptoms Gastrointestinal: reports: No Symptoms Genitourinary: reports: Dysuria, Flank Pain Musculoskeletal: reports: No Symptoms Integumentary: reports: No Symptoms Neurological: reports: No Symptoms Endocrine: reports: No Symptoms Hematology/Lymphatic: reports: No Symptoms Psychiatric: reports: No Symptoms Physical Exam Vital Signs: Vital Signs Temperature 101.7 F H 04/07/17 09:20 Pulse Rate 105 H 04/07/17 09:20 Respiratory Rate 16 04/07/17 09:20 Blood Pressure 124/77 04/07/17 09:20 O2 Sat by Pulse Oximetry (%) 96 04/07/17 09:20 Constitutional: Yes: Well Nourished, No Distress, Calm Eyes: Yes: Conjunctiva Clear HENT: Yes: Atraumatic Neck: Yes: Supple, Trachea Midline Cardiovascular: Yes: Regular Rate and Rhythm Respiratory: Yes: Regular, CTA Bilaterally Gastrointestinal: Yes: Normal Bowel Sounds, Soft Musculoskeletal: Yes: WNL Extremities: Yes: WNL Neurological: Yes: Alert, Oriented Labs: CBC, BMP 04/07/17 03:00 04/07/17 03:00 Imaging - Results Chest X-ray: Report Reviewed, Image Reviewed Ultrasound: Report Reviewed, Image Reviewed Assessment/Plan this patient presenting with fever like the last time though she does not have rash this time. the cause of her fever last time was probably dengue and this time again she has developed the same type of symptoms i cannot say her fever is due to what cause at this moment fever weakness dysuria plan no abx await for cx report if patient continues to spike again i think we should oliver scan her monitor liver function tests rest as per primary team i am going to order a crp and esr
[2017-04-07] MEDS: SODIUM CHLORIDE 1,000 ML IV SCH (13:56)
[2017-04-07 18:56] VITALS: BMI 25.7
--- NOTE | 2017-04-07 21:46 | EKG ---
Test Reason : Blood Pressure : / mmHG Vent. Rate : 097 BPM Atrial Rate : 097 BPM P-R Int : 132 ms QRS Dur : 072 ms QT Int : 358 ms P-R-T Axes : 056 038 027 degrees QTc Int : 454 ms NORMAL SINUS RHYTHM NONSPECIFIC T WAVE ABNORMALITY WHEN COMPARED WITH ECG OF 23-NOV-2016 03:50, T WAVE VARIATION Confirmed by ROGER TAYLOR MD ([id number]) on 04/07/2017 9:46:13 PM Referred By: Confirmed By:ROGER TAYLOR MD
[2017-04-08] MEDS: SODIUM CHLORIDE 1,000 ML IV SCH ×2 (02:04→11:53)
[2017-04-08 08:44] LABS: HEMATOCRIT 24.1 % (32.4-45.2); HEMOGLOBIN 7.8 GM/dL (10.7-15.3); MCH 26.7 pg (25.7-33.7); MCHC 32.4 g/dl (32.0-36.0); MEAN CELL VOLUME 82.6 fl (80-96); MEAN PLT VOLUME 7.6 fl (7.5-11.1); PLATELET COUNT 241 K/MM3 (134-434); RBC 2.92 M/mm3 (3.60-5.2); RDW 14.9 % (11.6-15.6); WHITE BLOOD COUNT 12.1 K/mm3 (4.0-10.0)
[2017-04-08 08:57] LABS: INR 1.47 (0.82-1.09); PROTHROMBIN TIME (PATIENT) 16.6 SEC (9.98-11.88)
[2017-04-08 09:00] LABS: ACTIVATED PTT 33.6 SECONDS (26.9-34.4)
[2017-04-08 09:22] LABS: ALBUMIN 1.9 g/dl (3.4-5.0); ANION GAP 12 (8-16); BILIRUBIN,TOTAL 0.7 mg/dL (0.2-1.0); BLOOD UREA NITROGEN 6 mg/dL (7-18); CALCIUM 7.5 mg/dL (8.5-10.1); CHLORIDE 101 mmol/L (98-107); CO2 23 mmol/L (21-32); CREATININE 0.7 mg/dL (0.55-1.02); GLUCOSE,RANDOM 71 mg/dL (74-106); MAGNESIUM 1.8 mg/dL (1.8-2.4); PHOSPHOROUS 2.8 mg/dL (2.5-4.9); POTASSIUM 3.6 mmol/L (3.5-5.1); SGOT/AST 177 U/L (15-37); SGPT/ALT 57 U/L (12-78); SODIUM 136 mmol/L (136-145); TOT PROT 6.2 g/dl (6.4-8.2)
[2017-04-08 09:23] LABS: ALK PHOS 83 U/L (45-117)
--- NOTE | 2017-04-08 10:28 | PN ---
Physical Exam: SUBJECTIVE: Patient seen and examined at bedside. Daughter present. Complains of feeling hot. OBJECTIVE: Vital Signs Period Temp Pulse Resp BP Sys/Carcamo Pulse Ox Last 24 Hr 98.1 F-102.2 F 71-93 18-20 102-128/55-67 95-96 GENERAL: The patient is awake, mildly lethargic. HEAD: Normal with no signs of trauma. EYES: PERRL, extraocular movements intact, sclera anicteric, conjunctiva clear. No ptosis. LUNGS: Breath sounds equal, clear to auscultation bilaterally, no wheezes, no crackles, no accessory muscle use. HEART: Regular rate and rhythm, S1, S2 ABDOMEN: Soft, nontender, nondistended, normoactive bowel sounds, no guarding, no rebound, no hepatosplenomegaly, no masses. EXTREMITIES: 2+ pulses, warm, well-perfused, no edema. NEUROLOGICAL: Cranial nerves II through XII grossly intact. Normal speech, gait not observed. SKIN: Warm, dry, normal turgor, no rashes or lesions noted Laboratory Results - last 24 hr 04/07/17 04/07/17 04/07/17 06:40 09:55 13:30 WBC RBC Hgb Hct MCV MCH MCHC RDW Plt Count MPV Neutrophils % Lymphocytes % PT with INR INR PTT (Actin FS) Sodium Potassium Chloride Carbon Dioxide Anion Gap BUN Creatinine Creat Clearance w eGFR POC Glucometer Random Glucose Calcium Phosphorus Magnesium Total Bilirubin AST ALT Alkaline Phosphatase C-Reactive Protein Total Protein Albumin Urine Osmolality Ur Random Sodium Cancelled Ur Random Potassium Cancelled Ur Random Chloride Cancelled Urine Creatinine Hepatitis A IgM Ab Negative Hep Bs Antigen Negative Hep B Core IgM Ab Negative Hepatitis C Antibody 0.1 Blood Type O POSITIVE 04/07/17 04/07/17 04/07/17 13:30 15:50 17:45 WBC RBC Hgb Hct MCV MCH MCHC RDW Plt Count MPV Neutrophils % Lymphocytes % PT with INR INR PTT (Actin FS) Sodium Potassium Chloride Carbon Dioxide Anion Gap BUN Creatinine Creat Clearance w eGFR POC Glucometer 99 Random Glucose Calcium Phosphorus Magnesium Total Bilirubin AST ALT Alkaline Phosphatase C-Reactive Protein Total Protein Albumin Urine Osmolality 268 L Ur Random Sodium 72 Ur Random Potassium 17.2 Ur Random Chloride 81 Urine Creatinine 36.0 Hepatitis A IgM Ab Hep Bs Antigen Hep B Core IgM Ab Hepatitis C Antibody Blood Type 04/08/17 04/08/1704/08/18 07:30 07:30 07:30 WBC 12.1 H RBC 2.92 L Hgb 7.8 L D Hct 24.1 L MCV 82.6 MCH 26.7 MCHC 32.4 RDW 14.9 Plt Count 241 MPV 7.6 Neutrophils % No Result Required. Lymphocytes % No Result Required. PT with INR 16.60 H INR 1.47 H PTT (Actin FS) 33.6 Sodium 136 Potassium 3.6 Chloride 101 Carbon Dioxide 23 Anion Gap 12 BUN 6 L Creatinine 0.7 Creat Clearance w eGFR > 60 POC Glucometer Random Glucose 71 L Calcium 7.5 L Phosphorus 2.8 Magnesium 1.8 Total Bilirubin 0.7 AST 177 H ALT 57 Alkaline Phosphatase 83 C-Reactive Protein Total Protein 6.2 L Albumin 1.9 L Urine Osmolality Ur Random Sodium Ur Random Potassium Ur Random Chloride Urine Creatinine Hepatitis A IgM Ab Hep Bs Antigen Hep B Core IgM Ab Hepatitis C Antibody Blood Type 04/08/17 07:30 WBC RBC Hgb Hct MCV MCH MCHC RDW Plt Count MPV Neutrophils % Lymphocytes % PT with INR INR PTT (Actin FS) Sodium Potassium Chloride Carbon Dioxide Anion Gap BUN Creatinine Creat Clearance w eGFR POC Glucometer Random Glucose Calcium Phosphorus Magnesium Total Bilirubin AST ALT Alkaline Phosphatase C-Reactive Protein 15.3 H Total Protein Albumin Urine Osmolality Ur Random Sodium Ur Random Potassium Ur Random Chloride Urine Creatinine Hepatitis A IgM Ab Hep Bs Antigen Hep B Core IgM Ab Hepatitis C Antibody Blood Type Active Medications Generic Name Dose Route Start Last Admin Trade Name Freq PRN Reason Stop Dose Admin Atenolol 100 mg 04/07/17 10:00 04/07/17 14:04 Tenormin - PO 100 mg DAILY JOAQUÍN Administration Sodium Chloride 1,000 mls @ 83 mls/hr 04/07/17 11:30 04/08/17 02:04 Normal Saline - IV 83 mls/hr ASDIR JOAQUÍN Administration Ibuprofen 600 mg 04/08/17 09:53 Motrin - PO Q6H PRN FEVER Insulin Aspart 1 vial 04/07/17 11:00 Novolog Vial Sliding Scale - SQ ACHS JOAQUÍN Protocol Pantoprazole Sodium 40 mg 04/08/17 10:00 Protonix - PO DAILY JOAQUÍN ASSESSMENT/PLAN 56 year-old female with a PMH significant for HTN, NIDDM, and previous hospitalization in November 2016 for fever of unknown origin. Daughter provides following supplemental history: From 11/23-->12/01/16 patient was hospitalized for fever of unknown origin. No definitive fever source was identified identified. 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 She went to the [facility] in mid-February and shortly thereafter was hospitalized for several weeks again with fever of uknown origin. Daughter thinks patient was diagnosed with a kidney infection and an infection from eating pork ( cystercicosis?). Daughter will bring in records. Fever of unknown origin Eosinophilia --febrile to 101.5, WBC 14k-->12.1k; 6% bands; eosinohils 6.0; crp 15.3 --CT head, abdomen, pelvis pending --04/07: blood cultures NGTD --repeat UA & UC --flu negative --ID following Normocytic Anemia --Hgb 7.8; was 13.3 in Nov 2016 --LDH, Haptoglobin, retic count pending Hyperproteinemia Transaminitis Elevated INR --US shows possible mild fatty liver; follow up CTAP --SPEP, UPEP Hypertension --continue atenolol NIDDM --Novolog sliding scale coverage FEN Fluids: NS @ 83mL/hr Electrolytes: replete as indicated Nutrition: diabetic, sodium controlled DVT prophylaxis: lovenox Physical therapy evaluation Dispo: continues to require inpatient care. Full code. Visit type - Emergency Visit Emergency Visit: Yes ED Registration Date: 04/07/17 Care time: The patient presented to the Emergency Department on the above date and was hospitalized for further evaluation of their emergent condition. - New Patient This patient is new to me today: Yes Date on this admission: 04/08/17 - Critical Care Critical Care patient: No
[2017-04-08] MEDS: PANTOPRAZOLE 40 MG TABLET (FP) PO SCH (10:55)
[2017-04-08] MEDS: ATENOLOL 50 MG TABLET (FP) PO SCH (10:55)
[2017-04-08] MEDS: IBUPROFEN 600 MG TABLET (FP) PO PRN ×2 (10:55→17:21)
[2017-04-08] MEDS: ENOXAPARIN NA (PORCINE) 40 MG/0.4 ML DISP.SYRIN SQ SCH (11:53)
[2017-04-08 12:04] LABS: ANISOCYTOSIS 0; MACROCYTOSIS 0; PLATELET ESTIMATE NORMAL
--- NOTE | 2017-04-08 13:14 | PN ---
Progress Note, Physician History of Present Illness: patient continues to spike fever on no abx wbc trending down - Current Medication List Current Medications: Active Medications Atenolol (Tenormin -) 100 mg PO DAILY [facility] Last Admin: 04/08/17 10:55 Dose: 100 mg Enoxaparin Sodium (Lovenox -) 40 mg SQ DAILY [facility] Last Admin: 04/08/17 11:53 Dose: 40 mg Sodium Chloride (Normal Saline -) 1,000 mls @ 83 mls/hr IV ASDIR [facility] Last Admin: 04/08/17 11:53 Dose: Not Given Ibuprofen (Motrin -) 600 mg PO Q6H PRN PRN Reason: FEVER Last Admin: 04/08/17 10:55 Dose: 600 mg Insulin Aspart (Novolog Vial Sliding Scale -) 1 vial SQ ACHS [facility] PRN Reason: Protocol Pantoprazole Sodium (Protonix -) 40 mg PO DAILY [facility] Last Admin: 04/08/17 10:55 Dose: 40 mg - Objective Vital Signs: Vital Signs Temperature 98.1 F 04/08/17 02:53 Pulse Rate 71 04/08/17 02:53 Respiratory Rate 20 04/08/17 02:53 Blood Pressure 128/67 04/08/17 02:53 O2 Sat by Pulse Oximetry (%) 95 04/08/17 00:00 Constitutional: Yes: No Distress, Calm Cardiovascular: Yes: Regular Rate and Rhythm Respiratory: Yes: Regular, CTA Bilaterally Gastrointestinal: Yes: Normal Bowel Sounds, Soft Musculoskeletal: Yes: WNL Extremities: Yes: WNL Neurological: Yes: Alert, Oriented Psychiatric: Yes: Alert, Oriented Labs: CBC, BMP 04/08/17 07:30 04/08/17 07:30 INR, PTT INR 1.47 (0.82-1.09) H 04/08/17 07:30 Assessment/Plan fever weakness dysuria r/o malaria and other parasite dengue plan will start patient on doxy monitor fever if continues to spike fever panscan the patient if patient spikes high grade fever--repeat blood cultures
[2017-04-08] MEDS ORDERED: methylPREDNISolone NA SUCC 125 MG/2 ML VIAL IVPUSH ONE ×2 (17:41→17:46)
[2017-04-08] MEDS ORDERED: FAMOTIDINE IV 20 MG/12 ML VIAL IVPUSH ONE (17:46)
--- NOTE | 2017-04-08 17:58 | RAPID ---
Physical Examination Vital Signs: Vital Signs Temperature 103 F H 04/08/17 17:25 Pulse Rate 136 H 04/08/17 17:25 Respiratory Rate 26 H 04/08/17 17:25 Blood Pressure 150/92 04/08/17 17:25 O2 Sat by Pulse Oximetry (%) 97 04/08/17 08:00 Labs: CBC, BMP 04/08/17 07:30 04/08/17 07:30 Rapid Response - Rapid Response Assessment: rapid response Patient is a 56 year old female with a past medical history of hypertension, diabetes. Pateint was s/p CT scan of the abdomen with oral and iv contrast patient returned from test and became hypoxic upon return from exam On exam, patient was awake, fearful, with upper extremities tremor Vitals: 130s heart rate, temp 103F, bp 150/92, 26 breaths per minute, 88-93% oxygen on 2 liters Plan: non re-breather mask stat Treat for allergy reaction to iodine contrast with: solumedrol 125mg x 1 push, benadryl 50mg iv x 1, pepcid 20mg x 1 now Epi ordered but not given as patient responded to the solumedrol 125mg push along with the benadryl and pepcid ordered: lactic acid, cbc, bmp, blood cultures, trop x 1, ekg stat, chest xray iodine allergy added to pt med record if ekg is abnormal, consider telemonitoring
[2017-04-08 19:45] LABS: BASO % 0.2 % (0-2.0); EOS % 0.7 % (0-4.5); HEMATOCRIT 21.9 % (32.4-45.2); HEMOGLOBIN 7.4 GM/dL (10.7-15.3); LYMPH % 3.8 % (8-40); MCH 27.4 pg (25.7-33.7); MCHC 33.7 g/dl (32.0-36.0); MEAN CELL VOLUME 81.4 fl (80-96); MEAN PLT VOLUME 7.3 fl (7.5-11.1); NEUT % 91.3 % (42.8-82.8); PLATELET COUNT 226 K/MM3 (134-434); RBC 2.69 M/mm3 (3.60-5.2); RDW 15.5 % (11.6-15.6); WHITE BLOOD COUNT 18.4 K/mm3 (4.0-10.0)
[2017-04-08] MEDS: PIPERACILLIN/TAZOB 3.375 GM 3.375 GM in DEXTROSE 5%-WATER - 100 ML IVPB SCH (20:17)
[2017-04-08] MEDS ORDERED: VANCOMYCIN 1,250 MG in DEXTROSE 5%-WATER - 250 ML IVPB ONE (22:00)
[2017-04-08 22:10] LABS: ALBUMIN 1.7 g/dl (3.4-5.0); ALK PHOS 79 U/L (45-117); BILIRUBIN,TOTAL 0.6 mg/dL (0.2-1.0); BLOOD UREA NITROGEN 7 mg/dL (7-18); CO2 19 mmol/L (21-32); CREATININE 0.6 mg/dL (0.55-1.02); GLUCOSE,RANDOM 118 mg/dL (74-106); SGOT/AST 189 U/L (15-37); SGPT/ALT 51 U/L (12-78); TOT PROT 5.4 g/dl (6.4-8.2)
[2017-04-08 22:13] LABS: CALCIUM 6.5 mg/dL (8.5-10.1)
[2017-04-08 23:56] LABS: URINE APPEARANCE CLEAR; URINE BILIRUBIN NEGATIVE (NEGATIVE); URINE BLOOD NEGATIVE (NEGATIVE); URINE COLOR STRAW; URINE GLUCOSE (UA) NEGATIVE (NEGATIVE); URINE KETONE TRACE (NEGATIVE); URINE LEUK ESTERASE NEGATIVE (NEGATIVE); URINE NITRITE NEGATIVE (NEGATIVE); URINE PROTEIN NEGATIVE (NEGATIVE); URINE UROBILINOGEN NEGATIVE mg/dL (0.2-1.0)
[2017-04-09 00:05] LABS: ANION GAP 13 (8-16); CHLORIDE 107 mmol/L (98-107); POTASSIUM 3.5 mmol/L (3.5-5.1); SODIUM 139 mmol/L (136-145)
[2017-04-09] MEDS: PIPERACILLIN/TAZOB 3.375 GM 3.375 GM in DEXTROSE 5%-WATER - 100 ML IVPB SCH (01:49)
[2017-04-09 08:21] LABS: HEMATOCRIT 26.7 % (32.4-45.2); HEMOGLOBIN 8.6 GM/dL (10.7-15.3); MCH 26.6 pg (25.7-33.7); MCHC 32.1 g/dl (32.0-36.0); MEAN CELL VOLUME 82.7 fl (80-96); MEAN PLT VOLUME 7.8 fl (7.5-11.1); PLATELET COUNT 259 K/MM3 (134-434); RBC 3.23 M/mm3 (3.60-5.2); RDW 15.5 % (11.6-15.6); WHITE BLOOD COUNT 20.5 K/mm3 (4.0-10.0)
[2017-04-09 08:25] LABS: CHLORIDE 108 mmol/L (98-107); POTASSIUM 3.7 mmol/L (3.5-5.1); SODIUM 141 mmol/L (136-145)
[2017-04-09 08:31] LABS: ALBUMIN 1.8 g/dl (3.4-5.0); ALK PHOS 83 U/L (45-117); ANION GAP 10 (8-16); BILIRUBIN,DIRECT 0.4 mg/dL (0.0-0.2); BILIRUBIN,TOTAL 0.8 mg/dL (0.2-1.0); BLOOD UREA NITROGEN 7 mg/dL (7-18); CALCIUM 7.7 mg/dL (8.5-10.1); CO2 23 mmol/L (21-32); CREATININE 0.6 mg/dL (0.55-1.02); GLUCOSE,RANDOM 156 mg/dL (74-106); MAGNESIUM 1.9 mg/dL (1.8-2.4); PHOSPHOROUS 3.4 mg/dL (2.5-4.9); SGOT/AST 187 U/L (15-37); SGPT/ALT 54 U/L (12-78); TOT PROT 6.2 g/dl (6.4-8.2)
[2017-04-09] MEDS ORDERED: PT OWN MED DRAWER 7, Y5N ONE ×5 (09:24→22:59)
[2017-04-09] MEDS: PANTOPRAZOLE 40 MG TABLET (FP) PO SCH (09:29)
[2017-04-09] MEDS: ENOXAPARIN NA (PORCINE) 40 MG/0.4 ML DISP.SYRIN SQ SCH (09:29)
[2017-04-09] MEDS: ATENOLOL 50 MG TABLET (FP) PO SCH (09:29)
--- NOTE | 2017-04-09 10:07 | PN ---
Physical Exam: SUBJECTIVE: Patient seen and examined sitting in the solarium with her daughter. States she feels quite well. Events of past 24 hours noted. Allergy to iodinated contrast dye entered into EMR. OBJECTIVE: Vital Signs Period Temp Pulse Resp BP Sys/Carcamo Pulse Ox Last 24 Hr 97.6 F-103 F 72-136 18-26 103-150/60-92 97-99 GENERAL: The patient is A&Ox3. HEAD: Normal with no signs of trauma. No cervical lymphadenopathy appreciated. EYES: PERRL, extraocular movements intact, sclera anicteric, conjunctiva clear. No ptosis. LUNGS: CTA HEART: Regular rate and rhythm, S1, S2 ABDOMEN: Soft, nontender, nondistended, normoactive bowel sounds, no guarding, no rebound, no hepatosplenomegaly, no masses. EXTREMITIES: 2+ pulses, warm, well-perfused, no edema. NEUROLOGICAL: Cranial nerves II through XII grossly intact. Normal speech, gait not observed. Laboratory Results - last 24 hr 04/08/17 04/08/17 04/08/17 07:30 07:30 07:30 WBC RBC Hgb Hct MCV MCH MCHC RDW Plt Count MPV Neutrophils % Neutrophils % (Manual) 75.3 Band Neutrophils % 6.2 Lymphocytes % Lymphocytes % (Manual) 8.2 Monocytes % Monocytes % (Manual) 4 Eosinophils % Eosinophils % (Manual) 3.1 Basophils % Basophils % (Manual) 0.0 Myelocytes % (Man) 0 Metamyelocytes 1 Hypochromia 0 Platelet Estimate Normal Polychromasia 1+ Poikilocytosis 0 Anisocytosis 0 Microcytosis 0 Macrocytosis 0 ESR 42 H Retic Count Sodium Potassium Chloride Carbon Dioxide Anion Gap BUN Creatinine Creat Clearance w eGFR POC Glucometer Random Glucose Lactic Acid Calcium Phosphorus Magnesium Total Bilirubin Direct Bilirubin AST ALT Alkaline Phosphatase LD Total 1116 H Troponin I C-Reactive Protein 15.3 H Total Protein Albumin TSH Urine Color Urine Appearance Urine pH Ur Specific [place] Urine Protein Urine Glucose (UA) Urine Ketones Urine Blood Urine Nitrite Urine Bilirubin Urine Urobilinogen Ur Leukocyte Esterase 04/08/17 04/08/17 04/08/17 07:30 07:30 11:45 WBC RBC Hgb Hct MCV MCH MCHC RDW Plt Count MPV Neutrophils % Neutrophils % (Manual) Band Neutrophils % Lymphocytes % Lymphocytes % (Manual) Monocytes % Monocytes % (Manual) Eosinophils % Eosinophils % (Manual) Basophils % Basophils % (Manual) Myelocytes % (Man) Metamyelocytes Hypochromia Platelet Estimate Polychromasia Poikilocytosis Anisocytosis Microcytosis Macrocytosis ESR Retic Count 1.66 H Sodium Potassium Chloride Carbon Dioxide Anion Gap BUN Creatinine Creat Clearance w eGFR POC Glucometer 109 Random Glucose Lactic Acid Calcium Phosphorus Magnesium Total Bilirubin Direct Bilirubin AST ALT Alkaline Phosphatase LD Total Cancelled Troponin I C-Reactive Protein Total Protein Albumin TSH Urine Color Urine Appearance Urine pH Ur Specific [place] Urine Protein Urine Glucose (UA) Urine Ketones Urine Blood Urine Nitrite Urine Bilirubin Urine Urobilinogen Ur Leukocyte Esterase 04/08/17 04/08/17 04/08/17 18:06 18:30 18:30 WBC 18.4 H D RBC 2.69 L Hgb 7.4 L Hct 21.9 L MCV 81.4 MCH 27.4 MCHC 33.7 RDW 15.5 Plt Count 226 MPV 7.3 L Neutrophils % 91.3 H D Neutrophils % (Manual) Band Neutrophils % Lymphocytes % 3.8 L D Lymphocytes % (Manual) Monocytes % 4.0 Monocytes % (Manual) Eosinophils % 0.7 Eosinophils % (Manual) Basophils % 0.2 Basophils % (Manual) Myelocytes % (Man) Metamyelocytes Hypochromia Platelet Estimate Polychromasia Poikilocytosis Anisocytosis Microcytosis Macrocytosis ESR Retic Count Sodium 139 Potassium 3.5 Chloride 107 Carbon Dioxide 19 L Anion Gap 13 BUN 7 Creatinine 0.6 Creat Clearance w eGFR > 60 POC Glucometer 128 Random Glucose 118 H Lactic Acid Calcium 6.5 L* Phosphorus Magnesium Total Bilirubin 0.6 Direct Bilirubin AST 189 H ALT 51 Alkaline Phosphatase 79 LD Total Troponin I C-Reactive Protein Total Protein 5.4 L Albumin 1.7 L TSH Urine Color Urine Appearance Urine pH Ur Specific [place] Urine Protein Urine Glucose (UA) Urine Ketones Urine Blood Urine Nitrite Urine Bilirubin Urine Urobilinogen Ur Leukocyte Esterase 04/08/17 04/08/17 04/08/17 18:30 18:30 20:53 WBC RBC Hgb Hct MCV MCH MCHC RDW Plt Count MPV Neutrophils % Neutrophils % (Manual) Band Neutrophils % Lymphocytes % Lymphocytes % (Manual) Monocytes % Monocytes % (Manual) Eosinophils % Eosinophils % (Manual) Basophils % Basophils % (Manual) Myelocytes % (Man) Metamyelocytes Hypochromia Platelet Estimate Polychromasia Poikilocytosis Anisocytosis Microcytosis Macrocytosis ESR Retic Count Sodium Potassium Chloride Carbon Dioxide Anion Gap BUN Creatinine Creat Clearance w eGFR POC Glucometer Random Glucose Lactic Acid 2.1 H Calcium Phosphorus Magnesium Total Bilirubin Direct Bilirubin AST ALT Alkaline Phosphatase LD Total Troponin I 0.04 C-Reactive Protein Total Protein Albumin TSH 1.83 Urine Color Straw Urine Appearance Clear Urine pH 6.0 Ur Specific [place] 1.016 Urine Protein Negative Urine Glucose (UA) Negative Urine Ketones Trace H Urine Blood Negative Urine Nitrite Negative Urine Bilirubin Negative Urine Urobilinogen Negative Ur Leukocyte Esterase Negative 04/08/17 04/09/17 04/09/17 23:21 06:30 06:30 WBC 20.5 H RBC 3.23 L D Hgb 8.6 L D Hct 26.7 L D MCV 82.7 MCH 26.6 MCHC 32.1 RDW 15.5 Plt Count 259 MPV 7.8 Neutrophils % Business Systems Technician Neutrophils % (Manual) Band Neutrophils % Lymphocytes % Business Systems Technician Lymphocytes % (Manual) Monocytes % Business Systems Technician Monocytes % (Manual) Eosinophils % Business Systems Technician Eosinophils % (Manual) Basophils % Business Systems Technician Basophils % (Manual) Myelocytes % (Man) Metamyelocytes Hypochromia Platelet Estimate Polychromasia Poikilocytosis Anisocytosis Microcytosis Macrocytosis ESR Retic Count Sodium 141 Potassium 3.7 Chloride 108 H Carbon Dioxide 23 Anion Gap 10 BUN 7 Creatinine 0.6 Creat Clearance w eGFR POC Glucometer 196 Random Glucose 156 H Lactic Acid Calcium 7.7 L Phosphorus 3.4 Magnesium 1.9 Total Bilirubin 0.8 D Direct Bilirubin 0.4 H AST 187 H ALT 54 Alkaline Phosphatase 83 LD Total Troponin I C-Reactive Protein Total Protein 6.2 L Albumin 1.8 L TSH Urine Color Urine Appearance Urine pH Ur Specific [place] Urine Protein Urine Glucose (UA) Urine Ketones Urine Blood Urine Nitrite Urine Bilirubin Urine Urobilinogen Ur Leukocyte Esterase Active Medications Generic Name Dose Route Start Last Admin Trade Name Freq PRN Reason Stop Dose Admin Atenolol 100 mg 04/07/17 10:00 04/09/17 09:29 Tenormin - PO 100 mg DAILY JOAQUÍN Administration Enoxaparin Sodium 40 mg 04/08/17 11:00 04/09/17 09:29 Lovenox - SQ 40 mg DAILY JOAQUÍN Administration Sodium Chloride 1,000 mls @ 83 mls/hr 04/07/17 11:30 04/08/17 11:53 Normal Saline - IV Not Given ASDIR [facility] Vancomycin HCl 1,250 mg/ 250 mls @ 250 mls/hr 04/08/17 22:00 Dextrose IVPB BID [facility] Protocol Ibuprofen 600 mg 04/08/17 09:53 04/08/17 17:21 Motrin - PO 600 mg Q6H PRN Administration FEVER Insulin Aspart 1 vial 04/07/17 11:00 Novolog Vial Sliding Scale - SQ ACHS [facility] Protocol Pantoprazole Sodium 40 mg 04/08/17 10:00 04/09/17 09:29 Protonix - PO 40 mg DAILY JOAQUÍN Administration Piperacillin/Tazobactam/Dextrose 3.375 gm 04/08/17 18:30 Zosyn 3.375gm Ivpb (Premix) IVPB Q8H-IV [facility] Microbiology 04/07/17 03:15 Blood - Peripheral Venous Blood Culture - Preliminary NO GROWTH OBTAINED AFTER 96 HOURS, INCUBATION TO CONTINUE FOR 1 DAYS. 04/07/17 03:02 Blood - Peripheral Venous Blood Culture - Preliminary NO GROWTH OBTAINED AFTER 96 HOURS, INCUBATION TO CONTINUE FOR 1 DAYS. 04/08/17 18:30 Blood - Peripheral Venous Blood Culture - Preliminary NO GROWTH OBTAINED AFTER 48 HOURS, INCUBATION TO CONTINUE FOR 3 DAYS. 04/08/17 18:30 Blood - Peripheral Venous Blood Culture - Preliminary NO GROWTH OBTAINED AFTER 48 HOURS, INCUBATION TO CONTINUE FOR 3 DAYS. 04/09/17 07:50 Sputum - Aerosol Induced Gram Stain - Final 04/09/17 07:50 Sputum - Aerosol Induced Sputum Culture - Preliminary NORMAL RESPIRATORY MARIA C 04/09/17 06:00 Urine - Urine Clean Catch Urine Culture - Final NO GROWTH OBTAINED 04/08/17 18:50 Blood - Peripheral Venous Blood Parasites Smear (SARHA) - Final 04/07/17 03:02 Urine - Urine Clean Catch Urine Culture - Final Contaminated: Please Repeat 04/07/17 05:10 Nasopharyngeal Swab Influenza Types A,B Antigen (SARAH) - Final 04/07/17 05:10 Nasopharyngeal Swab - Final ASSESSMENT/PLAN 56 year-old female with a PMH significant for HTN, NIDDM, and previous hospitalization in November 2016 for fever of unknown origin. Rehospitalized in [facility] from mid-February to early March for same reason. Fever of unknown origin --febrile to 103, WBC 20.5, cultures negative to date --CTAP shows mediastinal, bilateral hilar, and bilateral axillary nodes, retroperitoneal and mesenteric lymphadenopathy; highly suspicious for lympho- proliferative disorder --oncology consult requested --continue empiric antibiotics Normocytic Anemia --Hgb 7.8; was 13.3 in Nov 2016 --LDH, Haptoglobin, retic count pending Hyperproteinemia Transaminitis Elevated INR --SPEP, UPEP Hypertension --continue atenolol NIDDM --Novolog sliding scale coverage FEN Fluids: NS @ 83mL/hr Electrolytes: replete as indicated Nutrition: diabetic, sodium controlled DVT prophylaxis: lovenox Physical therapy evaluation Dispo: continues to require inpatient care. Full code. Visit type - Emergency Visit Emergency Visit: Yes ED Registration Date: 04/10/17 Care time: The patient presented to the Emergency Department on the above date and was hospitalized for further evaluation of their emergent condition. - New Patient This patient is new to me today: No - Critical Care Critical Care patient: No
[2017-04-09 11:35] LABS: ANISOCYTOSIS 0; MACROCYTOSIS 0; PLATELET ESTIMATE NORMAL
--- NOTE | 2017-04-09 13:50 | PN ---
Progress Note, Physician History of Present Illness: patient spiked a fever had reaction to contrast currently stable - Current Medication List Current Medications: Active Medications Atenolol (Tenormin -) 100 mg PO DAILY [facility] Last Admin: 04/09/17 09:29 Dose: 100 mg Enoxaparin Sodium (Lovenox -) 40 mg SQ DAILY [facility] Last Admin: 04/09/17 09:29 Dose: 40 mg Vancomycin HCl 1,250 mg/ (Dextrose) 250 mls @ 250 mls/hr IVPB BID [facility]N PRN Reason: Protocol Ibuprofen (Motrin -) 600 mg PO Q6H PRN PRN Reason: FEVER Last Admin: 04/08/17 17:21 Dose: 600 mg Insulin Aspart (Novolog Vial Sliding Scale -) 1 vial SQ ACHS [facility] PRN Reason: Protocol Pantoprazole Sodium (Protonix -) 40 mg PO DAILY [facility] Last Admin: 04/09/17 09:29 Dose: 40 mg Piperacillin/Tazobactam/Dextrose (Zosyn 3.375gm Ivpb (Premix)) 3.375 gm IVPB Q8H-IV [facility] - Objective Vital Signs: Vital Signs Temperature 97.4 F L 04/09/17 08:10 Pulse Rate 69 04/09/17 08:10 Respiratory Rate 18 04/09/17 08:10 Blood Pressure 109/64 04/09/17 08:10 O2 Sat by Pulse Oximetry (%) 99 04/09/17 07:00 Constitutional: Yes: No Distress, Calm Cardiovascular: Yes: Regular Rate and Rhythm Respiratory: Yes: Regular, CTA Bilaterally Gastrointestinal: Yes: Normal Bowel Sounds, Soft Musculoskeletal: Yes: WNL Extremities: Yes: WNL Neurological: Yes: Alert, Oriented Psychiatric: Yes: Alert, Oriented Labs: CBC, BMP 04/09/17 06:30 04/09/17 06:30 INR, PTT INR 1.47 (0.82-1.09) H 04/08/17 07:30 - ....Imaging Cat Scan: Report Reviewed, Image Reviewed Assessment/Plan fever weakness dysuria r/o malaria and other parasite dengue lymphoma malignancy after looking at the ct scan very high chances of lymphoma/malignancy plan will start on unasyn heam onco to have look at the patient rest as per primary team monitor fevers
[2017-04-09] MEDS: AMPICILLIN NA/SULBACTAM NA 3 GM in SODIUM CHLORIDE 100 ML IVPB SCH ×2 (15:37→18:39)
--- NOTE | 2017-04-09 20:09 | CONSULT ---
Consult Consult Specialty:: Oncology - History of Present Illness History of Present Illness: 56 yo F with PMH of HTN, diet controlled DM, last admitted 11/23/16-12/01/16 for fever of unknown origin, who presents due to fever x 1 mo. Oncology consulted for LAD seen in CT images Daughter at bedside is the woolen tester ROS is suggestive of three to four months of FUO, night sweats and weight loss around 11/2016, pt did notice axillary LAD. - History Source History Provided By: Patient, Family Member, Medical Record - Alcohol/Substance Use Hx Alcohol Use: No - Smoking History Smoking history: Never smoked Have you smoked in the past 12 months: No Home Medications - Allergies Allergies/Adverse Reactions: Allergies Allergy/AdvReac Type Severity Reaction Status Date / Time aspirin Allergy Verified 04/09/17 09:47 Iodinated Contrast- Oral and AdvReac Intermediate Difficulty Verified 04/09/17 09:50 IV Dye Breathing - Home Medications Home Medications: Ambulatory Orders Atenolol [Tenormin -] 100 mg PO DAILY #30 tablet 12/01/16 Family Disease History - Family Disease History Family History: Denies Review of Systems - Review of Systems Constitutional: reports: Chills, Fever, Loss of Appetite, Night Sweats, Unintentional Wgt. Loss. denies: Weakness HENT: denies: Difficult Swallowing, Ear Discharge, Ear Pain, Nasal Congestion Neck: denies: Decreased ROM, Lumps Cardiovascular: denies: Chest Pain, Edema, Palpitations, Shortness of Breath Respiratory: reports: Cough. denies: Exercise Intolerance, Hemoptysis, Orthopnea Gastrointestinal: denies: Abdominal Pain, Bloating Genitourinary: reports: No Symptoms. denies: Burning Breasts: reports: No Symptoms Reported Musculoskeletal: reports: No Symptoms Integumentary: reports: No Symptoms Hematology/Lymphatic: reports: Swollen Glands Physical Exam Vital Signs: Vital Signs Temperature 98 F 04/09/17 17:14 Pulse Rate 74 04/09/17 17:14 Respiratory Rate 20 04/09/17 17:14 Blood Pressure 112/69 04/09/17 17:14 O2 Sat by Pulse Oximetry (%) 99 04/09/17 07:00 Constitutional: Yes: Well Nourished, No Distress, Calm Eyes: Yes: Conjunctiva Clear HENT: Yes: Atraumatic, Normocephalic Neck: Yes: Supple, Trachea Midline Cardiovascular: Yes: Regular Rate and Rhythm, Bradycardia Respiratory: Yes: Regular, CTA Bilaterally Gastrointestinal: Yes: Normal Bowel Sounds, Soft, Abdomen, Obese Breast(s): Yes: WNL, Other (+rt axillary LAD to palpate.) Musculoskeletal: Yes: WNL Extremities: Yes: WNL Edema: No Labs: CBC, BMP 04/09/17 06:30 04/09/17 06:30 Imaging - Results X-ray: Report Reviewed Cat Scan: Report Reviewed Problem List - Problems (1) Fever Code(s): R50.9 - FEVER, UNSPECIFIED (2) Transaminitis Code(s): R74.0 - NONSPEC ELEV OF LEVELS OF TRANSAMNS & LACTIC ACID DEHYDRGNSE (3) Lymphadenopathy Code(s): R59.1 - GENERALIZED ENLARGED LYMPH NODES (4) UTI (urinary tract infection) Code(s): N39.0 - URINARY TRACT INFECTION, SITE NOT SPECIFIED Assessment/Plan Highly suspicious for Lympho-proliferative disorder order IR guided Biopsy ( axillary ), IR guided, core recommended At RISK for TLS ( LDH >1000) Aggressive IVF Start allopurinol HIV HTLV will fill out paper work for flow in the am. yennifer pt and daughter in detail yennifer CABA
[2017-04-09] MEDS ORDERED: SODIUM CHLORIDE 1,000 ML IV SCH (20:15)
[2017-04-09] MEDS: ALLOPURINOL 300 MG TABLET (FP) PO SCH (22:07)
[2017-04-09] MEDS: INSULIN SLIDING SCALE (NOVOLOG) 1 VIAL SQ SCH (22:37)
[2017-04-10] MEDS: AMPICILLIN NA/SULBACTAM NA 3 GM in SODIUM CHLORIDE 100 ML IVPB SCH ×3 (05:40→17:59)
[2017-04-10] MEDS: INSULIN SLIDING SCALE (NOVOLOG) 1 VIAL SQ SCH ×8 (06:25→21:30)
[2017-04-10] MEDS: PIPERACIL/TAZOB 3.375 GM 3.375 GM/50 ML PREMIX IVPB SCH ×2 (07:15→07:16)
[2017-04-10] MEDS: VANCOMYCIN 1,250 MG in DEXTROSE 5%-WATER - 250 ML IVPB SCH ×2 (07:15→07:17)
[2017-04-10] MEDS ORDERED: ACETAMINOPHEN 1000 MG/100 ML VIAL (NON FORMULARY) IVPB ONE (08:02)
[2017-04-10 08:04] LABS: PHOSPHOROUS 1.8 mg/dL (2.5-4.9)
[2017-04-10 08:12] LABS: ALBUMIN 1.9 g/dl (3.4-5.0); ANION GAP 9 (8-16); BLOOD UREA NITROGEN 8 mg/dL (7-18); CALCIUM 7.5 mg/dL (8.5-10.1); CHLORIDE 110 mmol/L (98-107); CO2 24 mmol/L (21-32); CREATININE 0.5 mg/dL (0.55-1.02); GLUCOSE,RANDOM 95 mg/dL (74-106); POTASSIUM 3.7 mmol/L (3.5-5.1); SGOT/AST 146 U/L (15-37); SGPT/ALT 57 U/L (12-78); SODIUM 143 mmol/L (136-145); URIC ACID 2.4 mg/dL (2.6-7.2)
[2017-04-10 08:16] LABS: ALK PHOS 85 U/L (45-117); BILIRUBIN,TOTAL 0.7 mg/dL (0.2-1.0)
[2017-04-10 08:18] LABS: HEMATOCRIT 25.5 % (32.4-45.2); HEMOGLOBIN 8.2 GM/dL (10.7-15.3); LDH 906 U/L (84-246); MCH 26.4 pg (25.7-33.7); MCHC 32.3 g/dl (32.0-36.0); MEAN CELL VOLUME 81.9 fl (80-96); MEAN PLT VOLUME 8.2 fl (7.5-11.1); PLATELET COUNT 301 K/MM3 (134-434); RBC 3.12 M/mm3 (3.60-5.2); RDW 15.8 % (11.6-15.6); WHITE BLOOD COUNT 15.5 K/mm3 (4.0-10.0)
[2017-04-10 08:23] LABS: INR 1.14 (0.82-1.09); PROTHROMBIN TIME (PATIENT) 12.9 SEC (9.98-11.88)
[2017-04-10 08:25] LABS: ACTIVATED PTT 28.2 SECONDS (26.9-34.4)
[2017-04-10] MEDS ORDERED: MAG HYDROX/AL HYDROX/SIMETH -MYLANTA- ORAL SUSPENSION PO ONE (08:30)
--- NOTE | 2017-04-10 08:36 | PN ---
Physical Exam: SUBJECTIVE: Patient seen and examined at bedside. Complained early this morning of chest pain/pressure. With fever and rigors. Anxious. OBJECTIVE: Vital Signs Period Temp Pulse Resp BP Sys/[place] Pulse Ox Last 24 Hr 97.6 F-102.1 F 69-98 102-135/60-77 GENERAL: The patient is A&Ox3. HEAD: Normal with no signs of trauma. No cervical or axillary lymphadenopathy appreciated. EYES: PERRL, extraocular movements intact, sclera anicteric, conjunctiva clear. No ptosis. LUNGS: CTA HEART: Regular rate and rhythm, S1, S2 ABDOMEN: Soft, nontender, nondistended, normoactive bowel sounds, no guarding, no rebound, no hepatosplenomegaly, no masses. EXTREMITIES: 2+ pulses, warm, well-perfused, no edema. NEUROLOGICAL: Cranial nerves II through XII grossly intact. Normal speech, gait not observed. Laboratory Results - last 24 hr 04/09/17 04/09/17 04/09/17 06:30 11:25 16:41 Neutrophils % (Manual) 92.7 H* D Band Neutrophils % 2.1 Lymphocytes % (Manual) 2.1 L D Monocytes % (Manual) 2 L Eosinophils % (Manual) 0.0 D Basophils % (Manual) 0.0 Myelocytes % (Man) 1 D Promyelocytes % (Man) 0 Metamyelocytes 0 D Hypochromia 1+ Platelet Estimate Normal Platelet Comment Present Polychromasia 1+ Poikilocytosis 0 Anisocytosis 0 Microcytosis 0 Macrocytosis 0 Sodium Potassium Chloride Carbon Dioxide Anion Gap BUN Creatinine Creat Clearance w eGFR POC Glucometer 141 129 Random Glucose Uric Acid Calcium Phosphorus Total Bilirubin AST ALT Alkaline Phosphatase LD Total Creatine Kinase Troponin I Total Protein Albumin 04/09/17 04/10/17 04/10/17 22:14 06:00 06:00 Neutrophils % (Manual) Band Neutrophils % Lymphocytes % (Manual) Monocytes % (Manual) Eosinophils % (Manual) Basophils % (Manual) Myelocytes % (Man) Promyelocytes % (Man) Metamyelocytes Hypochromia Platelet Estimate Platelet Comment Polychromasia Poikilocytosis Anisocytosis Microcytosis Macrocytosis Sodium 143 Potassium 3.7 Chloride 110 H Carbon Dioxide 24 Anion Gap 9 BUN 8 Creatinine 0.5 L Creat Clearance w eGFR > 60 POC Glucometer 152 Random Glucose 95 Uric Acid 2.4 L Calcium 7.5 L Phosphorus 1.8 L Total Bilirubin 0.7 AST 146 H ALT 57 Alkaline Phosphatase 85 LD Total 906 H Creatine Kinase 34 Cancelled Troponin I 0.03 Cancelled Total Protein 6.0 L Albumin 1.9 L 04/10/17 06:07 Neutrophils % (Manual) Band Neutrophils % Lymphocytes % (Manual) Monocytes % (Manual) Eosinophils % (Manual) Basophils % (Manual) Myelocytes % (Man) Promyelocytes % (Man) Metamyelocytes Hypochromia Platelet Estimate Platelet Comment Polychromasia Poikilocytosis Anisocytosis Microcytosis Macrocytosis Sodium Potassium Chloride Carbon Dioxide Anion Gap BUN Creatinine Creat Clearance w eGFR POC Glucometer 99 Random Glucose Uric Acid Calcium Phosphorus Total Bilirubin AST ALT Alkaline Phosphatase LD Total Creatine Kinase Troponin I Total Protein Albumin Active Medications Generic Name Dose Route Start Last Admin Trade Name Freq PRN Reason Stop Dose Admin Allopurinol 300 mg 04/09/17 20:15 04/09/17 22:07 Zyloprim - PO 300 mg DAILY [facility] Administration Atenolol 100 mg 04/07/17 10:00 04/09/17 09:29 Tenormin - PO 100 mg DAILY [facility] Administration Enoxaparin Sodium 40 mg 04/08/17 11:00 04/09/17 09:29 Lovenox - SQ 40 mg DAILY [facility] Administration Ampicillin Sodium/Sulbactam 100 mls @ 200 mls/hr 04/09/17 14:00 04/10/17 05: 40 Sodium 3 gm/ Sodium Chloride IVPB 200 mls/hr Q8H-IV [facility] Administration Sodium Chloride 1,000 mls @ 100 mls/hr 04/10/17 08:30 Normal Saline - IV ASDIR [facility]N Ibuprofen 600 mg 04/08/17 09:53 04/08/17 17:21 Motrin - PO 600 mg Q6H PRN Administration FEVER Insulin Aspart 1 vial 04/09/17 22:00 04/10/17 06:25 Novolog Vial Sliding Scale - SQ Not Given ACHS [facility] Protocol Pantoprazole Sodium 40 mg 04/08/17 10:00 04/09/17 09:29 Protonix - PO 40 mg DAILY [facility] Administration ASSESSMENT/PLAN 56 year-old female with a PMH significant for HTN, NIDDM, and previous hospitalization in November 2016 for fever of unknown origin. Rehospitalized in [facility] from mid-February to early March for same reason. Fever of unknown origin --continues to spike fevers, culures negative to date; continue empiric antibiotics --CTAP highly suspicious for lympho-proliferative disorder --IR requesting ultrasound imaging of neck and axilla to get better views for biopsy --continue IVF, motrin PRN Chest pain --complained of mid-sternal chest pressure this morning --ECG: sinus rhythm @ 93bpm; no ischemic changes --trop x 1 neg x 3 --CXR unremarkable --ACS ruled out; likely anxiety from new diagnosis Hypertension --continue atenolol NIDDM --Novolog sliding scale coverage FEN Fluids: NS @ 83mL/hr Electrolytes: replete as indicated Nutrition: diabetic, sodium controlled DVT prophylaxis: hold lovenox for biopsy Physical therapy evaluation Dispo: continues to require inpatient care. Full code. -- Visit type - Emergency Visit Emergency Visit: Yes ED Registration Date: 04/10/17 Care time: The patient presented to the Emergency Department on the above date and was hospitalized for further evaluation of their emergent condition. - New Patient This patient is new to me today: No - Critical Care Critical Care patient: No
[2017-04-10] MEDS ORDERED: PT OWN MED DRAWER 7, Y5N ONE ×3 (08:47→17:36)
[2017-04-10] MEDS: SODIUM CHLORIDE 1,000 ML IV SCH ×2 (08:50→16:24)
--- NOTE | 2017-04-10 10:29 | EKG ---
Test Reason : Blood Pressure : / mmHG Vent. Rate : 093 BPM Atrial Rate : 093 BPM P-R Int : 136 ms QRS Dur : 074 ms QT Int : 354 ms P-R-T Axes : 042 036 041 degrees QTc Int : 440 ms NORMAL SINUS RHYTHM NORMAL ECG WHEN COMPARED WITH ECG OF 07-APR-2017 03:49, NO SIGNIFICANT CHANGE WAS FOUND Confirmed by BHANU DANIELLE MD ([id number]) on 04/10/2017 10:29:17 AM Referred By: , Confirmed By:BHANU DANIELLE MD
--- NOTE | 2017-04-10 10:33 | EKG ---
Test Reason : Blood Pressure : / mmHG Vent. Rate : 105 BPM Atrial Rate : 105 BPM P-R Int : 134 ms QRS Dur : 068 ms QT Int : 352 ms P-R-T Axes : 036 003 013 degrees QTc Int : 465 ms SINUS TACHYCARDIA OTHERWISE NORMAL ECG WHEN COMPARED WITH ECG OF 07-APR-2017 03:49, NO SIGNIFICANT CHANGE WAS FOUND Confirmed by BHANU DANIELLE MD ([id number]) on 04/10/2017 10:33:00 AM Referred By: Confirmed By:BHANU DANIELLE MD
[2017-04-10] MEDS: PANTOPRAZOLE 40 MG TABLET (FP) PO SCH (10:35)
[2017-04-10] MEDS: ENOXAPARIN NA (PORCINE) 40 MG/0.4 ML DISP.SYRIN SQ SCH (10:35)
[2017-04-10] MEDS: ATENOLOL 50 MG TABLET (FP) PO SCH (10:35)
[2017-04-10] MEDS: ALLOPURINOL 300 MG TABLET (FP) PO SCH (10:36)
[2017-04-10 11:05] LABS: URINE APPEARANCE CLEAR; URINE BILIRUBIN NEGATIVE (NEGATIVE); URINE BLOOD NEGATIVE (NEGATIVE); URINE COLOR STRAW; URINE GLUCOSE (UA) NEGATIVE (NEGATIVE); URINE KETONE NEGATIVE (NEGATIVE); URINE LEUK ESTERASE NEGATIVE (NEGATIVE); URINE NITRITE NEGATIVE (NEGATIVE); URINE PROTEIN NEGATIVE (NEGATIVE); URINE UROBILINOGEN NEGATIVE mg/dL (0.2-1.0)
[2017-04-10] MEDS: IBUPROFEN 600 MG TABLET (FP) PO PRN ×2 (13:27→20:09)
--- NOTE | 2017-04-10 14:39 | PN ---
Progress Note, Physician History of Present Illness: continues to spike fever intermittently no other issues except fatigue - Current Medication List Current Medications: Active Medications Allopurinol (Zyloprim -) 300 mg PO DAILY [facility] Last Admin: 04/10/17 10:36 Dose: 300 mg Atenolol (Tenormin -) 100 mg PO DAILY [facility] Last Admin: 04/10/17 10:35 Dose: 100 mg Ampicillin Sodium/Sulbactam (Sodium 3 gm/ Sodium Chloride) 100 mls @ 200 mls/ hr IVPB Q8H-IV [facility] Last Admin: 04/10/17 10:35 Dose: 200 mls/hr Sodium Chloride (Normal Saline -) 1,000 mls @ 100 mls/hr IV ASDIR [facility] Last Admin: 04/10/17 08:50 Dose: 100 mls/hr Ibuprofen (Motrin -) 600 mg PO Q6H PRN PRN Reason: FEVER Last Admin: 04/10/17 13:27 Dose: 600 mg Insulin Aspart (Novolog Vial Sliding Scale -) 1 vial SQ ACHS [facility] PRN Reason: Protocol Last Admin: 04/10/17 12:37 Dose: Not Given Pantoprazole Sodium (Protonix -) 40 mg PO DAILY [facility] Last Admin: 04/10/17 10:35 Dose: 40 mg - Objective Vital Signs: Vital Signs Temperature 103.1 F H 04/10/17 14:00 Pulse Rate 98 H 04/10/17 07:30 Respiratory Rate 24 04/10/17 07:30 Blood Pressure 135/68 04/10/17 07:30 O2 Sat by Pulse Oximetry (%) 100 04/09/17 23:00 Constitutional: Yes: No Distress, Calm Neck: Yes: Supple Cardiovascular: Yes: Regular Rate and Rhythm Respiratory: Yes: Regular, CTA Bilaterally Gastrointestinal: Yes: Normal Bowel Sounds, Soft Musculoskeletal: Yes: Other (axillary lymphadenopathy) Neurological: Yes: Alert, Confusion Psychiatric: Yes: Alert, Oriented Labs: CBC, BMP 04/10/17 06:00 04/10/17 06:00 INR, PTT INR 1.14 (0.82-1.09) 04/10/17 06:00 Assessment/Plan fever weakness dysuria r/o malaria and other parasite dengue lymphoma malignancy after looking at the ct scan very high chances of lymphoma/malignancy plan continue abx await for biopsy as per onco rest as per primary team
[2017-04-10 15:18] LABS: MACROCYTOSIS 1+
--- NOTE | 2017-04-10 15:41 | PN ---
Progress Note (short form) - Note Progress Note: seen and examined. continues to spike fever. Daughter at bedside. Constitutional: Yes: Well Nourished, No Distress, Calm Eyes: Yes: Conjunctiva Clear HENT: Yes: Atraumatic, Normocephalic Neck: Yes: Supple, Trachea Midline Cardiovascular: Yes: Regular Rate and Rhythm, Bradycardia Respiratory: Yes: Regular, CTA Bilaterally Gastrointestinal: Yes: Normal Bowel Sounds, Soft, Abdomen, Obese Breast(s): Yes: WNL, Other (+rt axillary LAD to palpate.) Musculoskeletal: Yes: WNL Extremities: Yes: WNL Edema: No Last Vital Signs Temp Pulse Resp BP Pulse Ox 102.7 F H 93 H 18 99/59 100 04/10/17 15:08 04/10/17 15:08 04/10/17 15:08 04/10/17 15:08 04/09/17 23:00 CBC, BMP 04/10/17 06:00 04/10/17 06:00 Current Medications Generic Name Dose Route Start Last Admin Trade Name Freq PRN Reason Stop Dose Admin Allopurinol 300 mg 04/09/17 20:15 04/10/17 10:36 Zyloprim - PO 300 mg DAILY [facility] Administration Atenolol 100 mg 04/07/17 10:00 04/10/17 10:35 Tenormin - PO 100 mg DAILY [facility] Administration Ampicillin Sodium/Sulbactam 100 mls @ 200 mls/hr 04/09/17 14:00 04/10/17 10: 35 Sodium 3 gm/ Sodium Chloride IVPB 200 mls/hr Q8H-IV [facility] Administration Sodium Chloride 1,000 mls @ 100 mls/hr 04/10/17 08:30 04/10/17 08:50 Normal Saline - IV 100 mls/hr ASDIR [facility] Administration Ibuprofen 600 mg 04/08/17 09:53 04/10/17 13:27 Motrin - PO 600 mg Q6H PRN Administration FEVER Insulin Aspart 1 vial 04/09/17 22:00 04/10/17 12:37 Novolog Vial Sliding Scale - SQ Not Given ACHS [facility] Protocol Pantoprazole Sodium 40 mg 04/08/17 10:00 04/10/17 10:35 Protonix - PO 40 mg DAILY [facility] Administration FUO ID w/u in process parasite smear negative ?any other malignancy (eg: Lympho proliferative disorder is considered ) d/w IR, recommended US axilla and neck, will do prior to be considered for biopsy. c/w allopurinol sent flow daily LDH d/w Primary hospitalist Anemia: for screening w/u, including KEKE/RF hapto pending ??HLH (secondary), will first send off ferritin/fibrinogen/TG Elevated AST ?etiology Problem List - Problems (1) Fever Code(s): R50.9 - FEVER, UNSPECIFIED (2) Transaminitis Code(s): R74.0 - NONSPEC ELEV OF LEVELS OF TRANSAMNS & LACTIC ACID DEHYDRGNSE (3) Lymphadenopathy Code(s): R59.1 - GENERALIZED ENLARGED LYMPH NODES (4) UTI (urinary tract infection) Code(s): N39.0 - URINARY TRACT INFECTION, SITE NOT SPECIFIED
[2017-04-10] MEDS ORDERED: MAG HYDROX/AL HYDROX/SIMETH 30 ML UNIT-DOSE CUP PO PRN (16:09)
[2017-04-11] MEDS ORDERED: PT OWN MED DRAWER 7, Y5N ONE ×3 (01:48→11:53)
[2017-04-11] MEDS: AMPICILLIN NA/SULBACTAM NA 3 GM in SODIUM CHLORIDE 100 ML IVPB SCH ×2 (01:55→11:57)
[2017-04-11] MEDS: IBUPROFEN 600 MG TABLET (FP) PO PRN ×4 (02:01→22:07)
[2017-04-11] MEDS: SODIUM CHLORIDE 1,000 ML IV SCH ×4 (05:44→18:15)
[2017-04-11] MEDS: INSULIN SLIDING SCALE (NOVOLOG) 1 VIAL SQ SCH ×4 (06:11→22:09)
[2017-04-11 08:31] LABS: HEMATOCRIT 22.2 % (32.4-45.2); HEMOGLOBIN 7.2 GM/dL (10.7-15.3); MCH 26.2 pg (25.7-33.7); MCHC 32.3 g/dl (32.0-36.0); MEAN CELL VOLUME 81.3 fl (80-96); PLATELET COUNT 206 K/MM3 (134-434); RBC 2.73 M/mm3 (3.60-5.2); RDW 15.9 % (11.6-15.6)
[2017-04-11 08:36] LABS: CHLORIDE 106 mmol/L (98-107); POTASSIUM 3.1 mmol/L (3.5-5.1); SODIUM 139 mmol/L (136-145)
[2017-04-11 09:13] LABS: ALBUMIN 1.8 g/dl (3.4-5.0); ALK PHOS 73 U/L (45-117); ANION GAP 11 (8-16); BILIRUBIN,TOTAL 0.5 mg/dL (0.2-1.0); BLOOD UREA NITROGEN 7 mg/dL (7-18); CALCIUM 7.4 mg/dL (8.5-10.1); CO2 22 mmol/L (21-32); CREATININE 0.6 mg/dL (0.55-1.02); GLUCOSE,RANDOM 83 mg/dL (74-106); SGOT/AST 160 U/L (15-37); SGPT/ALT 54 U/L (12-78); TOT PROT 5.6 g/dl (6.4-8.2); TRIGLYCERIDES 437 mg/dL (35-160)
[2017-04-11] MEDS: ALLOPURINOL 300 MG TABLET (FP) PO SCH (10:25)
[2017-04-11] MEDS: PANTOPRAZOLE 40 MG TABLET (FP) PO SCH (10:25)
[2017-04-11] MEDS: ATENOLOL 50 MG TABLET (FP) PO SCH (10:25)
[2017-04-11] MEDS ORDERED: LIDOCAINE HCL 1%, 10 MG/ML (20ML VIAL) ONE (11:49)
[2017-04-11 12:59] LABS: ANISOCYTOSIS 2+; PLATELET ESTIMATE NORMAL; TEAR DROP CELLS 1+
--- NOTE | 2017-04-11 14:05 | PN ---
Progress Note, Physician History of Present Illness: patient continues to spike fever inspite of abx some chills according to daughter might have allergy to amoxicillin though she did tolerate unasyn patient getting a bone marrow biopsy - Current Medication List Current Medications: Active Medications Al Hydroxide/Mg Hydroxide (Mylanta Oral Suspension -) 30 ml PO Q6H PRN PRN Reason: DYSPEPSIA Last Admin: 04/10/17 16:18 Dose: 30 ml Allopurinol (Zyloprim -) 300 mg PO DAILY [facility] Last Admin: 04/11/17 10:25 Dose: 300 mg Atenolol (Tenormin -) 100 mg PO DAILY [facility] Last Admin: 04/11/17 10:25 Dose: 100 mg Ampicillin Sodium/Sulbactam (Sodium 3 gm/ Sodium Chloride) 100 mls @ 200 mls/ hr IVPB Q8H-IV [facility] Last Admin: 04/11/17 11:57 Dose: 200 mls/hr Sodium Chloride (Normal Saline -) 1,000 mls @ 100 mls/hr IV ASDIR [facility] Last Admin: 04/11/17 10:26 Dose: Not Given Ibuprofen (Motrin -) 600 mg PO Q6H PRN PRN Reason: FEVER Last Admin: 04/11/17 06:53 Dose: 600 mg Insulin Aspart (Novolog Vial Sliding Scale -) 1 vial SQ ACHS [facility] PRN Reason: Protocol Last Admin: 04/11/17 12:03 Dose: Not Given Pantoprazole Sodium (Protonix -) 40 mg PO DAILY [facility] Last Admin: 04/11/17 10:25 Dose: 40 mg - Objective Vital Signs: Vital Signs Temperature 101.1 F H 04/11/17 13:14 Pulse Rate 93 H 04/11/17 06:00 Respiratory Rate 20 04/11/17 06:00 Blood Pressure 102/58 04/11/17 06:00 O2 Sat by Pulse Oximetry (%) 96 04/10/17 21:00 Constitutional: Yes: No Distress, Calm Cardiovascular: Yes: Regular Rate and Rhythm Respiratory: Yes: Regular, CTA Bilaterally Gastrointestinal: Yes: Normal Bowel Sounds, Soft Neurological: Yes: Alert, Oriented Psychiatric: Yes: Alert, Oriented Labs: CBC, BMP 04/11/17 06:30 04/11/17 06:30 INR, PTT INR 1.14 (0.82-1.09) 04/10/17 06:00 Fibrinogen 304.0 mg/dL (238-498) 04/11/17 06:30 Assessment/Plan fever weakness dysuria r/o malaria and other parasite dengue lymphoma malignancy after looking at the ct scan very high chances of lymphoma/malignancy plan stopped abx bone marrow biopsy done close monitoring watch for fevers await for final plan
--- NOTE | 2017-04-11 14:30 | PN ---
Progress Note (short form) - Note Progress Note: Patient seen and examined Fevers persist Weak, debilitated Falling Hct and elevated ferritin Last Vital Signs Temp Pulse Resp BP Pulse Ox 101.1 F H 93 H 20 102/58 96 04/11/17 13:14 04/11/17 06:00 04/11/17 06:00 04/11/17 06:00 04/10/17 21:00 HEENT: CHIP, EOM Intact Oropharynx: No thrush, No mucositis Cor: RSR, No murmurs, No gallops Lungs: rales bases Abd: Soft, Normal bowel sounds, No organomegaly Ext:No significant edema Skin: No rashes, Integument intact CBC, BMP 04/11/17 06:30 04/11/17 06:30 Abnormal Lab Results 04/10/17 04/11/17 04/11/17 06:00 06:30 06:30 WBC 16.0 H RBC 2.73 L Hgb 7.2 L D Hct 22.2 L RDW 15.9 H Lymphocytes % (Manual) 6.0 L D 2.2 L D Monocytes % (Manual) 3 L Potassium 3.1 L Calcium 7.4 L Ferritin 38792.24 H AST 160 H Total Protein 5.6 L Albumin 1.8 L Triglycerides 437 H Vitamin B12 1719 H Rheumatoid Factor 04/11/17 06:30 WBC RBC Hgb Hct RDW Lymphocytes % (Manual) Monocytes % (Manual) Potassium Calcium Ferritin AST Total Protein Albumin Triglycerides Vitamin B12 Rheumatoid Factor 17.1 H Current Medications Generic Name Dose Route Start Last Admin Trade Name Freq PRN Reason Stop Dose Admin Al Hydroxide/Mg Hydroxide 30 ml 04/10/17 16:09 04/10/17 16:18 Mylanta Oral Suspension - PO 30 ml Q6H PRN Administration DYSPEPSIA Allopurinol 300 mg 04/09/17 20:15 04/11/17 10:25 Zyloprim - PO 300 mg DAILY [facility] Administration Atenolol 100 mg 04/07/17 10:00 04/11/17 10:25 Tenormin - PO 100 mg DAILY [facility] Administration Sodium Chloride 1,000 mls @ 100 mls/hr 04/10/17 08:30 04/11/17 10:26 Normal Saline - IV Not Given ASDIR [facility]N Ibuprofen 600 mg 04/08/17 09:53 04/11/17 06:53 Motrin - PO 600 mg Q6H PRN Administration FEVER Insulin Aspart 1 vial 04/09/17 22:00 04/11/17 12:03 Novolog Vial Sliding Scale - SQ Not Given ACHS [facility] Protocol Pantoprazole Sodium 40 mg 04/08/17 10:00 04/11/17 10:25 Protonix - PO 40 mg DAILY [facility]N Administration Impression: Elevated ferritin of almost 6000 , lymphadenopathy , hyper-triglyceridemia, splenomegaly raise concern for 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 For bone marrow aspirate and biopsy with cultures. For soluble IL-2 receptor -alpha-- if feasible.
--- NOTE | 2017-04-11 16:17 | PN ---
Progress Note (short form) - Note Progress Note: Bone marrow aspirate , biopsy, cultures obtained. Results to follow.
--- NOTE | 2017-04-11 16:23 | PN ---
Physical Exam: SUBJECTIVE: Patient seen and examined OBJECTIVE: Vital Signs Period Temp Pulse Resp BP Sys/Carcamo Pulse Ox Last 24 Hr 99 F-102.8 F 79-93 18-20 98-120/56-65 96 GENERAL: A&Ox3. Canadian speaking only. EYES: PERRLA. EOMI. sclera anicteric. LUNGS: Lungs CTAB. Resp even and unlabored. HEART: RRR, S1, S2. No m/r/g. ABDOMEN: SNTND. +BS. EXTREMITIES: 2+ pulses, warm, well-perfused, no edema. NEUROLOGICAL: Cranial nerves II through XII grossly intact. Normal speech, gait not observed. Laboratory Results - last 24 hr 04/10/17 04/10/17 04/10/17 06:00 18:00 20:00 WBC RBC Hgb Hct MCV MCH MCHC RDW Plt Count MPV Neutrophils % Neutrophils % (Manual) Band Neutrophils % Lymphocytes % Lymphocytes % (Manual) Monocytes % (Manual) Eosinophils % (Manual) Basophils % (Manual) Myelocytes % (Man) Promyelocytes % (Man) Metamyelocytes Hypochromia Platelet Estimate Polychromasia Anisocytosis Microcytosis Tear Drop Cells Fragmented RBCs Fibrinogen Sodium Potassium Chloride Carbon Dioxide Anion Gap BUN Creatinine Creat Clearance w eGFR POC Glucometer 113 Random Glucose Calcium Ferritin Total Bilirubin AST ALT Alkaline Phosphatase Troponin I 0.03 Total Protein Albumin Triglycerides Vitamin B12 Serum Folate Rheumatoid Factor HIV 1&2 Ag/Ab, 4th Gen Non reactive 04/10/17 04/11/17 04/11/17 21:29 05:42 06:30 WBC 16.0 H RBC 2.73 L Hgb 7.2 L D Hct 22.2 L MCV 81.3 MCH 26.2 MCHC 32.3 RDW 15.9 H Plt Count 206 D MPV 8.0 Neutrophils % No Result Required. Neutrophils % (Manual) 80.2 Band Neutrophils % 6.6 Lymphocytes % No Result Required. Lymphocytes % (Manual) 2.2 L D Monocytes % (Manual) 7 D Eosinophils % (Manual) 0.0 Basophils % (Manual) 0.0 Myelocytes % (Man) 2 D Promyelocytes % (Man) 0 Metamyelocytes 0 Hypochromia 2+ Platelet Estimate Normal Polychromasia 1+ Anisocytosis 2+ Microcytosis 2+ Tear Drop Cells 1+ Fragmented RBCs 1+ Fibrinogen Sodium Potassium Chloride Carbon Dioxide Anion Gap BUN Creatinine Creat Clearance w eGFR POC Glucometer 113 102 Random Glucose Calcium Ferritin Total Bilirubin AST ALT Alkaline Phosphatase Troponin I Total Protein Albumin Triglycerides Vitamin B12 Serum Folate Rheumatoid Factor HIV 1&2 Ag/Ab, 4th Gen 04/11/17 04/11/17 04/11/17 06:30 06:30 06:30 WBC RBC Hgb Hct MCV MCH MCHC RDW Plt Count MPV Neutrophils % Neutrophils % (Manual) Band Neutrophils % Lymphocytes % Lymphocytes % (Manual) Monocytes % (Manual) Eosinophils % (Manual) Basophils % (Manual) Myelocytes % (Man) Promyelocytes % (Man) Metamyelocytes Hypochromia Platelet Estimate Polychromasia Anisocytosis Microcytosis Tear Drop Cells Fragmented RBCs Fibrinogen 304.0 Sodium 139 Potassium 3.1 L Chloride 106 Carbon Dioxide 22 Anion Gap 11 BUN 7 Creatinine 0.6 Creat Clearance w eGFR > 60 POC Glucometer Random Glucose 83 Calcium 7.4 L Ferritin 36065.24 H Total Bilirubin 0.5 D AST 160 H ALT 54 Alkaline Phosphatase 73 Troponin I Total Protein 5.6 L Albumin 1.8 L Triglycerides 437 H Vitamin B12 1719 H Serum Folate 6 Rheumatoid Factor 17.1 H HIV 1&2 Ag/Ab, 4th Gen 04/11/17 12:02 WBC RBC Hgb Hct MCV MCH MCHC RDW Plt Count MPV Neutrophils % Neutrophils % (Manual) Band Neutrophils % Lymphocytes % Lymphocytes % (Manual) Monocytes % (Manual) Eosinophils % (Manual) Basophils % (Manual) Myelocytes % (Man) Promyelocytes % (Man) Metamyelocytes Hypochromia Platelet Estimate Polychromasia Anisocytosis Microcytosis Tear Drop Cells Fragmented RBCs Fibrinogen Sodium Potassium Chloride Carbon Dioxide Anion Gap BUN Creatinine Creat Clearance w eGFR POC Glucometer 94 Random Glucose Calcium Ferritin Total Bilirubin AST ALT Alkaline Phosphatase Troponin I Total Protein Albumin Triglycerides Vitamin B12 Serum Folate Rheumatoid Factor HIV 1&2 Ag/Ab, 4th Gen Active Medications Generic Name Dose Route Start Last Admin Trade Name Freq PRN Reason Stop Dose Admin Al Hydroxide/Mg Hydroxide 30 ml 04/10/17 16:09 04/10/17 16:18 Mylanta Oral Suspension - PO 30 ml Q6H PRN Administration DYSPEPSIA Allopurinol 300 mg 04/09/17 20:15 04/11/17 10:25 Zyloprim - PO 300 mg DAILY JOAQUÍN Administration Atenolol 100 mg 04/07/17 10:00 04/11/17 10:25 Tenormin - PO 100 mg DAILY JOAQUÍN Administration Sodium Chloride 1,000 mls @ 100 mls/hr 04/10/17 08:30 04/11/17 10:26 Normal Saline - IV Not Given ASDIR JOAQUÍN Ibuprofen 600 mg 04/08/17 09:53 04/11/17 16:11 Motrin - PO 600 mg Q6H PRN Administration FEVER Insulin Aspart 1 vial 04/09/17 22:00 04/11/17 12:03 Novolog Vial Sliding Scale - SQ Not Given ACHS [facility] Protocol Pantoprazole Sodium 40 mg 04/08/17 10:00 04/11/17 10:25 Protonix - PO 40 mg DAILY JOAQUÍN Administration Microbiology 04/11/17 13:30 Bone Marrow - Pelvic/Iliac AFB Smear Concentration - Preliminary 04/11/17 13:30 Bone Marrow - Pelvic/Iliac Mycobacterial Culture - Preliminary 04/11/17 13:30 Bone Marrow - Pelvic/Iliac GRIFFIN Preparation - Preliminary 04/11/17 13:30 Bone Marrow - Pelvic/Iliac Fungal Culture - Preliminary 04/09/17 07:50 Sputum - Aerosol Induced Gram Stain - Final 04/09/17 07:50 Sputum - Aerosol Induced Sputum Culture - Final NORMAL RESPIRATORY MARIA C 04/10/17 09:00 Urine - Urine Clean Catch Urine Culture - Final NO GROWTH OBTAINED 04/10/17 08:30 Blood - Peripheral Venous Blood Culture - Preliminary NO GROWTH OBTAINED AFTER 24 HOURS, INCUBATION TO CONTINUE FOR 4 DAYS. 04/10/17 08:30 Blood - Peripheral Venous Blood Culture - Preliminary NO GROWTH OBTAINED AFTER 24 HOURS, INCUBATION TO CONTINUE FOR 4 DAYS. 04/07/17 03:15 Blood - Peripheral Venous Blood Culture - Preliminary NO GROWTH OBTAINED AFTER 96 HOURS, INCUBATION TO CONTINUE FOR 1 DAYS. 04/07/17 03:02 Blood - Peripheral Venous Blood Culture - Preliminary NO GROWTH OBTAINED AFTER 96 HOURS, INCUBATION TO CONTINUE FOR 1 DAYS. 04/08/17 18:30 Blood - Peripheral Venous Blood Culture - Preliminary NO GROWTH OBTAINED AFTER 48 HOURS, INCUBATION TO CONTINUE FOR 3 DAYS. 04/08/17 18:30 Blood - Peripheral Venous Blood Culture - Preliminary NO GROWTH OBTAINED AFTER 48 HOURS, INCUBATION TO CONTINUE FOR 3 DAYS. 04/09/17 06:00 Urine - Urine Clean Catch Urine Culture - Final NO GROWTH OBTAINED 04/08/17 18:50 Blood - Peripheral Venous Blood Parasites Smear (SARAH) - Final 04/07/17 03:02 Urine - Urine Clean Catch Urine Culture - Final Contaminated: Please Repeat 04/07/17 05:10 Nasopharyngeal Swab Influenza Types A,B Antigen (SARAH) - Final 04/07/17 05:10 Nasopharyngeal Swab - Final ASSESSMENT/PLAN: A: 56 year-old female with a PMH significant for HTN, NIDDM, and previous hospitalization in November 2016 for fever of unknown origin. Hospitalized in [facility] from mid-February to early March for same reason. Fever of unknown origin - continues to spike fevers - cultures NGTD - CTAP highly suspicious for lympho-proliferative disorder - Bone marrow biopsy done today- results pending - NS@83cc/hr - motrin PRN Anemia - normocytic - Ferritin- 59,485 - B12- 1719 - bone marrow biopsy results pending - ?apoptosis Chest pain - ECG: sinus rhythm @ 93bpm - trop x3 (-) - CXR unremarkable - ACS ruled out; likely anxiety from new diagnosis Hypertension - continue atenolol NIDDM - FS qACHS - Novolog sliding scale coverage FEN - Low Na diabetic diet - NS @ 83mL/hr - replete prn PPX - Lovenox - PT - OOB Dispo- continues to require inpatient care. Visit type - Emergency Visit Emergency Visit: Yes ED Registration Date: 04/10/17 Care time: The patient presented to the Emergency Department on the above date and was hospitalized for further evaluation of their emergent condition. - New Patient This patient is new to me today: Yes Date on this admission: 04/11/17 - Critical Care Critical Care patient: No
[2017-04-11] MEDS ORDERED: METOCLOPRAMIDE HCL 10 MG TABLET (FP) PO ONE (18:43)
[2017-04-11] MEDS ORDERED: INSULIN (NOVOLOG) ASPART 100 UNITS/ML 10ML VIAL ONE (21:32)
[2017-04-12] MEDS: IBUPROFEN 600 MG TABLET (FP) PO PRN ×2 (05:17→15:10)
[2017-04-12] MEDS: SODIUM CHLORIDE 1,000 ML IV SCH (05:34)
[2017-04-12] MEDS: INSULIN SLIDING SCALE (NOVOLOG) 1 VIAL SQ SCH ×4 (06:28→21:28)
[2017-04-12 07:38] LABS: HEMATOCRIT 22.3 % (32.4-45.2); HEMOGLOBIN 7.3 GM/dL (10.7-15.3); MCH 26.9 pg (25.7-33.7); MCHC 32.7 g/dl (32.0-36.0); MEAN CELL VOLUME 82.1 fl (80-96); PLATELET COUNT 139 K/MM3 (134-434); RBC 2.72 M/mm3 (3.60-5.2); WHITE BLOOD COUNT 17.6 K/mm3 (4.0-10.0)
[2017-04-12 07:56] LABS: CHLORIDE 109 mmol/L (98-107); SODIUM 141 mmol/L (136-145)
[2017-04-12 08:04] LABS: ALBUMIN 1.7 g/dl (3.4-5.0); ALK PHOS 90 U/L (45-117); ANION GAP 12 (8-16); BILIRUBIN,TOTAL 0.6 mg/dL (0.2-1.0); BLOOD UREA NITROGEN 8 mg/dL (7-18); CALCIUM 7.2 mg/dL (8.5-10.1); CO2 20 mmol/L (21-32); CREATININE 0.6 mg/dL (0.55-1.02); GLUCOSE,RANDOM 87 mg/dL (74-106); SGOT/AST 215 U/L (15-37); SGPT/ALT 53 U/L (12-78); TOT PROT 5.2 g/dl (6.4-8.2)
[2017-04-12] MEDS ORDERED: POTASSIUM CHLORIDE 10 MEQ in SODIUM CHLORIDE 100 ML IVPB SCH (08:15)
[2017-04-12] MEDS: ATENOLOL 50 MG TABLET (FP) PO SCH (09:23)
--- NOTE | 2017-04-12 09:23 | PN ---
Physical Exam: SUBJECTIVE: Patient seen and examined OBJECTIVE: Vital Signs Period Temp Pulse Resp BP Sys/Carcamo Pulse Ox Last 24 Hr 97.6 F-102.9 F 81-88 18-20 91-129/48-68 95 GENERAL: The patient is awake, alert, and fully oriented, in no acute distress. HEAD: Normal with no signs of trauma. EYES: PERRL, extraocular movements intact, sclera anicteric, conjunctiva clear. No ptosis. ENT: Ears normal, nares patent, oropharynx clear without exudates, moist mucous membranes. NECK: Trachea midline, full range of motion, supple. LUNGS: Breath sounds equal, clear to auscultation bilaterally, no wheezes, no crackles, no accessory muscle use. HEART: Regular rate and rhythm, S1, S2 without murmur, rub or gallop. ABDOMEN: Soft, nontender, nondistended, normoactive bowel sounds, no guarding, no rebound, no hepatosplenomegaly, no masses. EXTREMITIES: 2+ pulses, warm, well-perfused, no edema. NEUROLOGICAL: Cranial nerves II through XII grossly intact. Normal speech, gait not observed. PSYCH: Normal mood, normal affect. SKIN: Warm, dry, normal turgor, no rashes or lesions noted Laboratory Results - last 24 hr 04/10/17 04/11/17 04/11/17 06:00 06:30 06:30 WBC RBC Hgb Hct MCV MCH MCHC RDW Plt Count MPV Neutrophils % Neutrophils % (Manual) 80.2 Band Neutrophils % 6.6 Lymphocytes % Lymphocytes % (Manual) 2.2 L D Monocytes % (Manual) 7 D Eosinophils % (Manual) 0.0 Basophils % (Manual) 0.0 Myelocytes % (Man) 2 D Promyelocytes % (Man) 0 Metamyelocytes 0 Hypochromia 2+ Platelet Estimate Normal Polychromasia 1+ Anisocytosis 2+ Microcytosis 2+ Tear Drop Cells 1+ Fragmented RBCs 1+ Fibrinogen 304.0 Sodium Potassium Chloride Carbon Dioxide Anion Gap BUN Creatinine Creat Clearance w eGFR POC Glucometer Random Glucose Calcium Ferritin Total Bilirubin AST ALT Alkaline Phosphatase Total Protein Albumin HTLV I/II Antibody Negative 04/11/17 04/11/17 04/11/17 06:30 12:02 18:16 WBC RBC Hgb Hct MCV MCH MCHC RDW Plt Count MPV Neutrophils % Neutrophils % (Manual) Band Neutrophils % Lymphocytes % Lymphocytes % (Manual) Monocytes % (Manual) Eosinophils % (Manual) Basophils % (Manual) Myelocytes % (Man) Promyelocytes % (Man) Metamyelocytes Hypochromia Platelet Estimate Polychromasia Anisocytosis Microcytosis Tear Drop Cells Fragmented RBCs Fibrinogen Sodium Potassium Chloride Carbon Dioxide Anion Gap BUN Creatinine Creat Clearance w eGFR POC Glucometer 94 129 Random Glucose Calcium Ferritin 23383.24 H Total Bilirubin AST ALT Alkaline Phosphatase Total Protein Albumin HTLV I/II Antibody 04/11/17 04/12/17 04/12/17 22:08 06:00 06:00 WBC 17.6 H RBC 2.72 L Hgb 7.3 L Hct 22.3 L MCV 82.1 MCH 26.9 MCHC 32.7 RDW 16.0 H Plt Count 139 D MPV 8.0 Neutrophils % No Result Required. Neutrophils % (Manual) Band Neutrophils % Lymphocytes % No Result Required. Lymphocytes % (Manual) Monocytes % (Manual) Eosinophils % (Manual) Basophils % (Manual) Myelocytes % (Man) Promyelocytes % (Man) Metamyelocytes Hypochromia Platelet Estimate Polychromasia Anisocytosis Microcytosis Tear Drop Cells Fragmented RBCs Fibrinogen Sodium 141 Potassium 3.0 L Chloride 109 H Carbon Dioxide 20 L Anion Gap 12 BUN 8 Creatinine 0.6 Creat Clearance w eGFR > 60 POC Glucometer 93 Random Glucose 87 Calcium 7.2 L Ferritin Total Bilirubin 0.6 AST 215 H ALT 53 Alkaline Phosphatase 90 Total Protein 5.2 L Albumin 1.7 L HTLV I/II Antibody 04/12/17 06:27 WBC RBC Hgb Hct MCV MCH MCHC RDW Plt Count MPV Neutrophils % Neutrophils % (Manual) Band Neutrophils % Lymphocytes % Lymphocytes % (Manual) Monocytes % (Manual) Eosinophils % (Manual) Basophils % (Manual) Myelocytes % (Man) Promyelocytes % (Man) Metamyelocytes Hypochromia Platelet Estimate Polychromasia Anisocytosis Microcytosis Tear Drop Cells Fragmented RBCs Fibrinogen Sodium Potassium Chloride Carbon Dioxide Anion Gap BUN Creatinine Creat Clearance w eGFR POC Glucometer 103 Random Glucose Calcium Ferritin Total Bilirubin AST ALT Alkaline Phosphatase Total Protein Albumin HTLV I/II Antibody Active Medications Generic Name Dose Route Start Last Admin Trade Name Freq PRN Reason Stop Dose Admin Al Hydroxide/Mg Hydroxide 30 ml 04/10/17 16:09 04/10/17 16:18 Mylanta Oral Suspension - PO 30 ml Q6H PRN Administration DYSPEPSIA Allopurinol 300 mg 04/09/17 20:15 04/11/17 10:25 Zyloprim - PO 300 mg DAILY [facility] Administration Atenolol 100 mg 04/07/17 10:00 04/12/17 09:23 Tenormin - PO Not Given DAILY JOAQUÍN Potassium Chloride 10 meq/ 1,005 mls @ 100 mls/hr 04/12/17 08:15 Sodium Chloride IVPB Q10H JOAQUÍN Potassium Chloride 10 meq/ 105 mls @ 100 mls/hr 04/12/17 08:30 Sodium Chloride IVPB 04/12/17 10:29 Q60M JOAQUÍN Ibuprofen 600 mg 04/08/17 09:53 04/12/17 05:17 Motrin - PO 600 mg Q6H PRN Administration FEVER Insulin Aspart 1 vial 04/09/17 22:00 04/12/17 06:28 Novolog Vial Sliding Scale - SQ Not Given ACHS [facility] Protocol Pantoprazole Sodium 40 mg 04/08/17 10:00 04/11/17 10:25 Protonix - PO 40 mg DAILY JOAQUÍN Administration ASSESSMENT/PLAN:
--- NOTE | 2017-04-12 09:35 | PN ---
Physical Exam: SUBJECTIVE: Patient seen and examined at the bedside. Daughter in attendance. OBJECTIVE: Vital Signs Period Temp Pulse Resp BP Sys/Carcamo Pulse Ox Last 24 Hr 97.6 F-102.9 F 81-88 18-20 91-129/48-68 95 GENERAL: The patient is awake, alert, and fully oriented, in no acute distress. HEAD: Normal with no signs of trauma. EYES: PERRL, extraocular movements intact, sclera anicteric, conjunctiva clear. No ptosis. ENT: Ears normal, nares patent, oropharynx clear without exudates, moist mucous membranes. NECK: Trachea midline, full range of motion, supple. LUNGS: Breath sounds equal, clear to auscultation bilaterally, no wheezes, no crackles, no accessory muscle use. ABDOMEN: Soft, mildly distended, no abdominal pain, + bowel sounds, BM today EXTREMITIES: trace edema bilaterally NEUROLOGICAL: Normal speech, gait not observed. PSYCH: Normal mood, normal affect. SKIN: Warm, dry, normal turgor, no rashes or lesions noted Laboratory Results - last 24 hr 04/10/17 04/11/17 04/11/17 06:00 06:30 06:30 WBC RBC Hgb Hct MCV MCH MCHC RDW Plt Count MPV Neutrophils % Neutrophils % (Manual) 80.2 Band Neutrophils % 6.6 Lymphocytes % Lymphocytes % (Manual) 2.2 L D Monocytes % (Manual) 7 D Eosinophils % (Manual) 0.0 Basophils % (Manual) 0.0 Myelocytes % (Man) 2 D Promyelocytes % (Man) 0 Metamyelocytes 0 Hypochromia 2+ Platelet Estimate Normal Polychromasia 1+ Anisocytosis 2+ Microcytosis 2+ Tear Drop Cells 1+ Fragmented RBCs 1+ Fibrinogen 304.0 Sodium Potassium Chloride Carbon Dioxide Anion Gap BUN Creatinine Creat Clearance w eGFR POC Glucometer Random Glucose Calcium Ferritin Total Bilirubin AST ALT Alkaline Phosphatase Total Protein Albumin HTLV I/II Antibody Negative 04/11/17 04/11/17 04/11/17 06:30 12:02 18:16 WBC RBC Hgb Hct MCV MCH MCHC RDW Plt Count MPV Neutrophils % Neutrophils % (Manual) Band Neutrophils % Lymphocytes % Lymphocytes % (Manual) Monocytes % (Manual) Eosinophils % (Manual) Basophils % (Manual) Myelocytes % (Man) Promyelocytes % (Man) Metamyelocytes Hypochromia Platelet Estimate Polychromasia Anisocytosis Microcytosis Tear Drop Cells Fragmented RBCs Fibrinogen Sodium Potassium Chloride Carbon Dioxide Anion Gap BUN Creatinine Creat Clearance w eGFR POC Glucometer 94 129 Random Glucose Calcium Ferritin 22405.24 H Total Bilirubin AST ALT Alkaline Phosphatase Total Protein Albumin HTLV I/II Antibody 04/11/17 04/12/17 04/12/17 22:08 06:00 06:00 WBC 17.6 H RBC 2.72 L Hgb 7.3 L Hct 22.3 L MCV 82.1 MCH 26.9 MCHC 32.7 RDW 16.0 H Plt Count 139 D MPV 8.0 Neutrophils % No Result Required. Neutrophils % (Manual) Band Neutrophils % Lymphocytes % No Result Required. Lymphocytes % (Manual) Monocytes % (Manual) Eosinophils % (Manual) Basophils % (Manual) Myelocytes % (Man) Promyelocytes % (Man) Metamyelocytes Hypochromia Platelet Estimate Polychromasia Anisocytosis Microcytosis Tear Drop Cells Fragmented RBCs Fibrinogen Sodium 141 Potassium 3.0 L Chloride 109 H Carbon Dioxide 20 L Anion Gap 12 BUN 8 Creatinine 0.6 Creat Clearance w eGFR > 60 POC Glucometer 93 Random Glucose 87 Calcium 7.2 L Ferritin Total Bilirubin 0.6 AST 215 H ALT 53 Alkaline Phosphatase 90 Total Protein 5.2 L Albumin 1.7 L HTLV I/II Antibody 04/12/17 06:27 WBC RBC Hgb Hct MCV MCH MCHC RDW Plt Count MPV Neutrophils % Neutrophils % (Manual) Band Neutrophils % Lymphocytes % Lymphocytes % (Manual) Monocytes % (Manual) Eosinophils % (Manual) Basophils % (Manual) Myelocytes % (Man) Promyelocytes % (Man) Metamyelocytes Hypochromia Platelet Estimate Polychromasia Anisocytosis Microcytosis Tear Drop Cells Fragmented RBCs Fibrinogen Sodium Potassium Chloride Carbon Dioxide Anion Gap BUN Creatinine Creat Clearance w eGFR POC Glucometer 103 Random Glucose Calcium Ferritin Total Bilirubin AST ALT Alkaline Phosphatase Total Protein Albumin HTLV I/II Antibody Active Medications Generic Name Dose Route Start Last Admin Trade Name Freq PRN Reason Stop Dose Admin Al Hydroxide/Mg Hydroxide 30 ml 04/10/17 16:09 04/10/17 16:18 Mylanta Oral Suspension - PO 30 ml Q6H PRN Administration DYSPEPSIA Allopurinol 300 mg 04/09/17 20:15 04/11/17 10:25 Zyloprim - PO 300 mg DAILY JOAQUÍN Administration Atenolol 100 mg 04/07/17 10:00 04/12/17 09:23 Tenormin - PO Not Given DAILY JOAQUÍN Potassium Chloride 10 meq/ 1,005 mls @ 100 mls/hr 04/12/17 08:15 Sodium Chloride IVPB Q10H JOAQUÍN Potassium Chloride 10 meq/ 105 mls @ 100 mls/hr 04/12/17 08:30 Sodium Chloride IVPB 04/12/17 10:29 Q60M JOAQUÍN Ibuprofen 600 mg 04/08/17 09:53 04/12/17 05:17 Motrin - PO 600 mg Q6H PRN Administration FEVER Insulin Aspart 1 vial 04/09/17 22:00 04/12/17 06:28 Novolog Vial Sliding Scale - SQ Not Given ACHS [facility] Protocol Pantoprazole Sodium 40 mg 04/08/17 10:00 04/11/17 10:25 Protonix - PO 40 mg DAILY JOAQUÍN Administration ASSESSMENT/PLAN: Patient is a 56 year old female with a significant past medical history of hypertension, diabetes mellitus. She had a previous hospitalization in November 2016 for fever of unknown origin. Hospitalized in [facility] from mid-February to early March for same reason. ID/Hematology/Oncology: Fever of unknown origin/rule out Sepsis Febrile again today, WBC trending up, tacycardia Blood cultures negative to date CTAP highly suspicius for lympho-proliferative disorder Bone marrow biopsy results pending Oncology following ID following, started on IV antibiotics Anemia, likely chronic one marrow biopsy results pending monitor CBC Cardiology: Hypertension, controlled Continue atenolol Endocrine: NIDDM, monitor Novolog sliding scale coverage F.E.N Fluids: NS with 10meq @ 100, K. repleted with 2 K runs Electrolytes: repleted Nutrition: diabetic Prophy: DVT: SCDS GI: Protonix
[2017-04-12] MEDS: POTASSIUM CHLORIDE 10 MEQ in SODIUM CHLORIDE 100 ML IVPB SCH ×2 (09:50→10:49)
[2017-04-12] MEDS: POTASSIUM CHLORIDE 10 MEQ in SODIUM CHLORIDE 1,000 ML IVPB SCH ×2 (09:51→17:31)
[2017-04-12] MEDS ORDERED: PT OWN MED DRAWER 7, Y5N ONE ×2 (10:02→21:07)
[2017-04-12] MEDS: ALLOPURINOL 300 MG TABLET (FP) PO SCH (10:03)
[2017-04-12] MEDS: PANTOPRAZOLE 40 MG TABLET (FP) PO SCH (10:04)
[2017-04-12 10:35] LABS: PLATELET ESTIMATE NORMAL
--- NOTE | 2017-04-12 10:55 | PN ---
Progress Note, Physician History of Present Illness: patient continues to spike fever wbc has increased - Current Medication List Current Medications: Active Medications Al Hydroxide/Mg Hydroxide (Mylanta Oral Suspension -) 30 ml PO Q6H PRN PRN Reason: DYSPEPSIA Last Admin: 04/10/17 16:18 Dose: 30 ml Allopurinol (Zyloprim -) 300 mg PO DAILY [facility] Last Admin: 04/12/17 10:03 Dose: 300 mg Atenolol (Tenormin -) 100 mg PO DAILY [facility] Last Admin: 04/12/17 09:23 Dose: Not Given Potassium Chloride 10 meq/ (Sodium Chloride) 1,005 mls @ 100 mls/hr IVPB Q10H [facility] Last Admin: 04/12/17 09:51 Dose: 100 mls/hr Ibuprofen (Motrin -) 600 mg PO Q6H PRN PRN Reason: FEVER Last Admin: 04/12/17 05:17 Dose: 600 mg Insulin Aspart (Novolog Vial Sliding Scale -) 1 vial SQ ACHS [facility] PRN Reason: Protocol Last Admin: 04/12/17 06:28 Dose: Not Given Pantoprazole Sodium (Protonix -) 40 mg PO DAILY [facility] Last Admin: 04/12/17 10:04 Dose: 40 mg - Objective Vital Signs: Vital Signs Temperature 97.6 F 04/12/17 08:53 Pulse Rate 81 04/12/17 08:53 Respiratory Rate 20 04/12/17 08:53 Blood Pressure 91/52 04/12/17 08:53 O2 Sat by Pulse Oximetry (%) 95 04/11/17 21:00 Constitutional: Yes: No Distress, Calm Cardiovascular: Yes: Regular Rate and Rhythm Respiratory: Yes: Regular, CTA Bilaterally Gastrointestinal: Yes: Normal Bowel Sounds, Soft Musculoskeletal: Yes: WNL Extremities: Yes: WNL Neurological: Yes: Alert, Oriented Psychiatric: Yes: Alert, Oriented Labs: CBC, BMP 04/12/17 06:00 04/12/17 06:00 INR, PTT INR 1.14 (0.82-1.09) 04/10/17 06:00 Fibrinogen 304.0 mg/dL (238-498) 04/11/17 06:30 Assessment/Plan fever weakness dysuria r/o malaria and other parasite dengue lymphoma malignancy leukocytosis wbc has increased plan will start patient on abx will monitor wbc rest a per primary team also will work up for parasites
[2017-04-12] MEDS ORDERED: ERTAPENEM SODIUM 1 GM in SODIUM CHLORIDE 50 ML IVPB SCH (11:00)
[2017-04-12] MEDS ORDERED: VANCOMYCIN 1,250 MG in DEXTROSE 5%-WATER - 250 ML IVPB SCH (11:00)
[2017-04-12] MEDS ORDERED: ERTAPENEM SODIUM 1 GM in SODIUM CHLORIDE 100 ML IVPB SCH (11:35)
--- NOTE | 2017-04-12 12:24 | PN ---
Progress Note (short form) - Note Progress Note: Oncology follow-up note S: Patient seen and evaluated at bedside, spoke with her in Maltese, she feels well overall. She is having some mild epigastric pain suggestive of reflux. Last Vital Signs Temp Pulse Resp BP Pulse Ox 97.6 F 81 20 91/52 95 04/12/17 08:53 04/12/17 08:53 04/12/17 08:53 04/12/17 08:53 04/11/17 21:00 Physical Exam : AOx3 , PERRLA, EOMI RRR No m/g/r CTA(BL) Soft abdomen No c/c/e nonfocal neuro exam CBC, BMP 04/12/17 06:00 04/12/17 06:00 other significant labs include ESR : 42, CRP : 15, LDH : 1116, Ferritin : 59,485 Current Medications Generic Name Dose Route Start Last Admin Trade Name Freq PRN Reason Stop Dose Admin Al Hydroxide/Mg Hydroxide 30 ml 04/10/17 16:09 04/10/17 16:18 Mylanta Oral Suspension - PO 30 ml Q6H PRN Administration DYSPEPSIA Allopurinol 300 mg 04/09/17 20:15 04/12/17 10:03 Zyloprim - PO 300 mg DAILY JOAQUÍN Administration Atenolol 100 mg 04/07/17 10:00 04/12/17 09:23 Tenormin - PO Not Given DAILY JOAQUÍN Potassium Chloride 10 meq/ 1,005 mls @ 100 mls/hr 04/12/17 08:15 04/12/17 09: 51 Sodium Chloride IVPB 100 mls/hr Q10H JOAQUÍN Administration Doxycycline Hyclate 100 mg/ 100 mls @ 50 mls/hr 04/12/17 11:00 Dextrose IVPB BID JOAQUÍN Ertapenem 1 gm/ Sodium 100 mls @ 100 mls/hr 04/12/17 11:45 04/12/17 12:30 Chloride IVPB 100 mls/hr DAILY JOAQUÍN Administration Protocol Ibuprofen 600 mg 04/08/17 09:53 04/12/17 05:17 Motrin - PO 600 mg Q6H PRN Administration FEVER Insulin Aspart 1 vial 04/09/17 22:00 04/12/17 11:32 Novolog Vial Sliding Scale - SQ Not Given ACHS [facility] Protocol Pantoprazole Sodium 40 mg 04/08/17 10:00 04/12/17 10:04 Protonix - PO 40 mg DAILY JOAQUÍN Administration CT scans show lymphadenopathy above and below the diaphragm, splenomegaly, ILD with possibly right lung acute opacification A/P : 56 y/o female presented with fevers of unknown origin and , has been living in the ER, Ferritin on this admission is 59K! with all other acute phase reactants increased. -awaiting infectious work-up including Dengue IgM, meyloma labs -s/p bone marrow biopsy for work-up of HLH, send soluble IL 2alpha as well for more speficity, awaitting results of the same -will need a lymph node biopsy in addition if bone marrow results inconclusive for lymphoma work-up as possibility of HLH in the setting of lymphoma shuold be considered -continues to be febrile, ID following and pt is on antibiotics, awaiting cultures -very interesting presentation, will continue to follow with you
[2017-04-12] MEDS: ERTAPENEM SODIUM 1 GM in SODIUM CHLORIDE 100 ML IVPB SCH (12:30)
[2017-04-12] MEDS: DOXYCYCLINE INJECTION 100 MG in DEXTROSE 5%-WATER - 100 ML IVPB SCH ×2 (13:40→21:24)
[2017-04-12] MEDS ORDERED: SODIUM CHLORIDE NASAL SPRAY 44 ML BOTTLE NS PRN (15:36)
[2017-04-13] MEDS: IBUPROFEN 600 MG TABLET (FP) PO PRN ×3 (01:10→23:35)
[2017-04-13] MEDS: POTASSIUM CHLORIDE 10 MEQ in SODIUM CHLORIDE 1,000 ML IVPB SCH ×4 (02:04→16:26)
[2017-04-13] MEDS ORDERED: PT OWN MED DRAWER 7, Y5N ONE ×2 (05:23→09:49)
[2017-04-13] MEDS: INSULIN SLIDING SCALE (NOVOLOG) 1 VIAL SQ SCH ×4 (06:06→23:23)
[2017-04-13 07:46] LABS: HEMATOCRIT 23.8 % (32.4-45.2); HEMOGLOBIN 7.7 GM/dL (10.7-15.3); MCH 26.2 pg (25.7-33.7); MCHC 32.1 g/dl (32.0-36.0); MEAN CELL VOLUME 81.7 fl (80-96); MEAN PLT VOLUME 7.9 fl (7.5-11.1); PLATELET COUNT 120 K/MM3 (134-434); RBC 2.92 M/mm3 (3.60-5.2); RDW 16.2 % (11.6-15.6); WHITE BLOOD COUNT 17.8 K/mm3 (4.0-10.0)
[2017-04-13 08:13] LABS: CHLORIDE 108 mmol/L (98-107); POTASSIUM 3.2 mmol/L (3.5-5.1); SODIUM 140 mmol/L (136-145)
[2017-04-13] MEDS ORDERED: POTASSIUM CHLORIDE TABS 20 MEQ TABLET.ER (FP) PO ONE ×2 (08:31→12:00)
[2017-04-13 08:33] LABS: ALBUMIN 1.6 g/dl (3.4-5.0); ALK PHOS 115 U/L (45-117); ANION GAP 12 (8-16); BILIRUBIN,TOTAL 0.7 mg/dL (0.2-1.0); BLOOD UREA NITROGEN 6 mg/dL (7-18); CALCIUM 7.5 mg/dL (8.5-10.1); CO2 20 mmol/L (21-32); CREATININE 0.5 mg/dL (0.55-1.02); GLUCOSE,RANDOM 84 mg/dL (74-106); MAGNESIUM 1.9 mg/dL (1.8-2.4); SGOT/AST 240 U/L (15-37); SGPT/ALT 57 U/L (12-78); TOT PROT 5.4 g/dl (6.4-8.2)
[2017-04-13 09:51] LABS: ANISOCYTOSIS 3+; PLATELET ESTIMATE DECREASED
[2017-04-13] MEDS: ERTAPENEM SODIUM 1 GM in SODIUM CHLORIDE 100 ML IVPB SCH (09:56)
[2017-04-13] MEDS: PANTOPRAZOLE 40 MG TABLET (FP) PO SCH (09:56)
[2017-04-13] MEDS: ATENOLOL 50 MG TABLET (FP) PO SCH (09:56)
[2017-04-13] MEDS: ALLOPURINOL 300 MG TABLET (FP) PO SCH (09:57)
[2017-04-13] MEDS ORDERED: ERTAPENEM SODIUM 1 GM in SODIUM CHLORIDE 100 ML IVPB SCH (10:00)
[2017-04-13] MEDS: DOXYCYCLINE INJECTION 100 MG in DEXTROSE 5%-WATER - 100 ML IVPB SCH ×2 (11:08→23:28)
--- NOTE | 2017-04-13 12:24 | PN ---
Progress Note (short form) - Note Progress Note: Oncology follow-up note S: Patient seen and evaluated at bedside, spoke with her in Croatian, she feels well overall. Her daughter who is at bedside today and speaks Irish was able to translate the plan of treatment for me today. Physical Exam : AOx3 , PERRLA, EOMI RRR No m/g/r CTA(BL) Soft abdomen No c/c/e nonfocal neuro exam CBC, BMP 04/13/17 06:00 04/13/17 06:00 other significant labs include ESR : 42, CRP : 15, LDH : 1116, Ferritin : 59,485 Current Medications Generic Name Dose Route Start Last Admin Trade Name Freq PRN Reason Stop Dose Admin Al Hydroxide/Mg Hydroxide 30 ml 04/10/17 16:09 04/10/17 16:18 Mylanta Oral Suspension - PO 30 ml Q6H PRN Administration DYSPEPSIA Allopurinol 300 mg 04/09/17 20:15 04/12/17 10:03 Zyloprim - PO 300 mg DAILY JOAQUÍN Administration Atenolol 100 mg 04/07/17 10:00 04/12/17 09:23 Tenormin - PO Not Given DAILY JOAQUÍN Potassium Chloride 10 meq/ 1,005 mls @ 100 mls/hr 04/12/17 08:15 04/12/17 09: 51 Sodium Chloride IVPB 100 mls/hr Q10H JOAQUÍN Administration Doxycycline Hyclate 100 mg/ 100 mls @ 50 mls/hr 04/12/17 11:00 Dextrose IVPB BID JOAQUÍN Ertapenem 1 gm/ Sodium 100 mls @ 100 mls/hr 04/12/17 11:45 04/12/17 12:30 Chloride IVPB 100 mls/hr DAILY JOAQUÍN Administration Protocol Ibuprofen 600 mg 04/08/17 09:53 04/12/17 05:17 Motrin - PO 600 mg Q6H PRN Administration FEVER Insulin Aspart 1 vial 04/09/17 22:00 04/12/17 11:32 Novolog Vial Sliding Scale - SQ Not Given ACHS JOAQUÍN Protocol Pantoprazole Sodium 40 mg 04/08/17 10:00 04/12/17 10:04 Protonix - PO 40 mg DAILY JOAQUÍN Administration CT scans show lymphadenopathy above and below the diaphragm, splenomegaly, ILD with possibly right lung acute opacification A/P : 56 y/o female presented with fevers of unknown origin and , has been living in the ER, Ferritin on this admission is 59K! with all other acute phase reactants increased. -awaiting infectious work-up including Dengue IgM, meyloma labs, hepatitis serology is negative -s/p bone marrow biopsy for work-up of HLH, send soluble IL 2alpha as well for more specificity, awaiting results of the same -will need a lymph node biopsy in addition for lymphoma work-up as possibility of HLH in the setting of lymphoma should be considered, IR guided biopsy of axillary or other easily accessible nodes -continues to be febrile, ID following and pt is on antibiotics, cultures do not show any growth so far, suspect that fevers are of non-infectious type and likely related to high cytokines -daughter and patient were updated on this plan at bedside by me today, all their questions were answered and they expressed satisfaction with plan -very interesting presentation, will continue to follow with you
--- NOTE | 2017-04-13 14:05 | PN ---
Physical Exam: SUBJECTIVE: Patient seen and examined at the bedside. Daughter in attendance. continues to spike fevers, having some chills on exam. OBJECTIVE: negative for DVT Vital Signs Period Temp Pulse Resp BP Sys/Carcamo Pulse Ox Last 24 Hr 98.1 F-101.9 F 92-108 18-20 93-115/57-69 94-95 GENERAL: The patient is awake, alert, and fully oriented, in no acute distress. HEAD: Normal with no signs of trauma. EYES: PERRL, extraocular movements intact, sclera anicteric, conjunctiva clear. No ptosis. ENT: Ears normal, nares patent, oropharynx clear without exudates, moist mucous membranes. NECK: Trachea midline, full range of motion, supple. LUNGS: Breath sounds equal, clear to auscultation bilaterally, no wheezes, no crackles, no accessory muscle use. ABDOMEN: Soft, mildly distended, no abdominal pain, + bowel sounds, BM today EXTREMITIES: trace edema bilaterally NEUROLOGICAL: Normal speech, gait not observed. PSYCH: Normal mood, normal affect. SKIN: Warm, dry, normal turgor, no rashes or lesions noted Laboratory Results - last 24 hr 04/11/17 04/12/17 04/12/17 06:30 14:35 17:44 WBC RBC Hgb Hct MCV MCH MCHC RDW Plt Count MPV Neutrophils % Neutrophils % (Manual) Band Neutrophils % Lymphocytes % Lymphocytes % (Manual) Monocytes % (Manual) Eosinophils % (Manual) Basophils % (Manual) Myelocytes % (Man) Promyelocytes % (Man) Metamyelocytes Hypochromia Platelet Estimate Polychromasia Anisocytosis Microcytosis Fragmented RBCs Sodium Potassium 3.4 L Chloride Carbon Dioxide Anion Gap BUN Creatinine Creat Clearance w eGFR POC Glucometer 106 Random Glucose Calcium Magnesium Total Bilirubin AST ALT Alkaline Phosphatase Total Protein Albumin KEKE Screen Negative 04/12/17 04/13/17 04/13/17 21:00 05:38 06:00 WBC 17.8 H RBC 2.92 L Hgb 7.7 L Hct 23.8 L MCV 81.7 MCH 26.2 MCHC 32.1 RDW 16.2 H Plt Count 120 L MPV 7.9 Neutrophils % No Result Required. Neutrophils % (Manual) 74.2 Band Neutrophils % 9.3 Lymphocytes % No Result Required. Lymphocytes % (Manual) 2.1 L D Monocytes % (Manual) 8 Eosinophils % (Manual) 2.1 D Basophils % (Manual) 0.0 Myelocytes % (Man) 1 D Promyelocytes % (Man) 0 Metamyelocytes 2 D Hypochromia 1+ Platelet Estimate Decreased Polychromasia 1+ Anisocytosis 3+ Microcytosis 2+ Fragmented RBCs 1+ Sodium Potassium Chloride Carbon Dioxide Anion Gap BUN Creatinine Creat Clearance w eGFR POC Glucometer 103 98 Random Glucose Calcium Magnesium Total Bilirubin AST ALT Alkaline Phosphatase Total Protein Albumin KEKE Screen 04/13/17 04/13/17 04/13/17 06:00 11:19 13:25 WBC RBC Hgb Hct MCV MCH MCHC RDW Plt Count MPV Neutrophils % Neutrophils % (Manual) Band Neutrophils % Lymphocytes % Lymphocytes % (Manual) Monocytes % (Manual) Eosinophils % (Manual) Basophils % (Manual) Myelocytes % (Man) Promyelocytes % (Man) Metamyelocytes Hypochromia Platelet Estimate Polychromasia Anisocytosis Microcytosis Fragmented RBCs Sodium 140 Potassium 3.2 L 3.3 L Chloride 108 H Carbon Dioxide 20 L Anion Gap 12 BUN 6 L Creatinine 0.5 L Creat Clearance w eGFR > 60 POC Glucometer 94 Random Glucose 84 Calcium 7.5 L Magnesium 1.9 Total Bilirubin 0.7 AST 240 H ALT 57 Alkaline Phosphatase 115 Total Protein 5.4 L Albumin 1.6 L KEKE Screen Active Medications Generic Name Dose Route Start Last Admin Trade Name Freq PRN Reason Stop Dose Admin Al Hydroxide/Mg Hydroxide 30 ml 04/10/17 16:09 04/10/17 16:18 Mylanta Oral Suspension - PO 30 ml Q6H PRN Administration DYSPEPSIA Allopurinol 300 mg 04/09/17 20:15 04/13/17 09:57 Zyloprim - PO 300 mg DAILY JOAQUÍN Administration Atenolol 100 mg 04/07/17 10:00 04/13/17 09:56 Tenormin - PO 100 mg DAILY JOAQUÍN Administration Potassium Chloride 10 meq/ 1,005 mls @ 100 mls/hr 04/12/17 08:15 04/13/17 13: 26 Sodium Chloride IVPB Not Given Q10H JOAQUÍN Doxycycline Hyclate 100 mg/ 100 mls @ 50 mls/hr 04/12/17 11:00 04/13/17 11:08 Dextrose IVPB 50 mls/hr BID JOAQUÍN Administration Ertapenem 1 gm/ Sodium 100 mls @ 100 mls/hr 04/12/17 11:45 04/13/17 09:56 Chloride IVPB 100 mls/hr DAILY JOAQUÍN Administration Protocol Ibuprofen 600 mg 04/08/17 09:53 04/13/17 11:08 Motrin - PO 600 mg Q6H PRN Administration FEVER Insulin Aspart 1 vial 04/09/17 22:00 04/13/17 11:24 Novolog Vial Sliding Scale - SQ Not Given ACHS JOAQUÍN Protocol Pantoprazole Sodium 40 mg 04/08/17 10:00 04/13/17 09:56 Protonix - PO 40 mg DAILY JOAQUÍN Administration Sodium Chloride 2 spray 04/12/17 15:36 [place] - NS BID PRN NASAL CONGESTION ASSESSMENT/PLAN: Patient is a 56 year old female with a significant past medical history of hypertension, diabetes mellitus. She had a previous hospitalization in November 2016 for fever of unknown origin. Hospitalized in [facility] from mid-February to early March for same reason. ID/Hematology/Oncology: Fever of unknown origin/rule out Sepsis Febrile again today, WBC trending up, tacycardia Blood cultures negative to date CTAP highly suspicius for lympho-proliferative disorder Bone marrow biopsy results pending Oncology following ID following, started on IV antibiotics Anemia, likely chronic one marrow biopsy results pending monitor CBC Cardiology: Hypertension, controlled Continue atenolol Endocrine: NIDDM, monitor Novolog sliding scale coverage F.E.N Fluids: NS with 10meq @ 100, K. repleted with 2 K runs Electrolytes: repleted Nutrition: diabetic Prophy: DVT: SCDS GI: Protonix
[2017-04-13] MEDS ORDERED: POTASSIUM CHLORIDE ORAL LIQUID 20 MEQ/15 ML PO ONE (14:20)
--- NOTE | 2017-04-13 14:31 | PN ---
Progress Note, Physician History of Present Illness: low grade fevers better than yesterday very tired plan for lymph node biopsy - Current Medication List Current Medications: Active Medications Al Hydroxide/Mg Hydroxide (Mylanta Oral Suspension -) 30 ml PO Q6H PRN PRN Reason: DYSPEPSIA Last Admin: 04/10/17 16:18 Dose: 30 ml Allopurinol (Zyloprim -) 300 mg PO DAILY COUNTS INCLUDE 234 BEDS AT THE [facility] Last Admin: 04/13/17 09:57 Dose: 300 mg Atenolol (Tenormin -) 100 mg PO DAILY COUNTS INCLUDE 234 BEDS AT THE [facility] Last Admin: 04/13/17 09:56 Dose: 100 mg Potassium Chloride 10 meq/ (Sodium Chloride) 1,005 mls @ 100 mls/hr IVPB Q10H COUNTS INCLUDE 234 BEDS AT THE [facility] Last Admin: 04/13/17 13:26 Dose: Not Given Doxycycline Hyclate 100 mg/ (Dextrose) 100 mls @ 50 mls/hr IVPB BID COUNTS INCLUDE 234 BEDS AT THE [facility] Last Admin: 04/13/17 11:08 Dose: 50 mls/hr Ertapenem 1 gm/ Sodium (Chloride) 100 mls @ 100 mls/hr IVPB DAILY JOAQUÍN PRN Reason: Protocol Last Admin: 04/13/17 09:56 Dose: 100 mls/hr Ibuprofen (Motrin -) 600 mg PO Q6H PRN PRN Reason: FEVER Last Admin: 04/13/17 11:08 Dose: 600 mg Insulin Aspart (Novolog Vial Sliding Scale -) 1 vial SQ ACHS JOAQUÍN PRN Reason: Protocol Last Admin: 04/13/17 11:24 Dose: Not Given Pantoprazole Sodium (Protonix -) 40 mg PO DAILY COUNTS INCLUDE 234 BEDS AT THE [facility] Last Admin: 04/13/17 09:56 Dose: 40 mg Potassium Chloride (Potassium Chloride Oral Liquid) 40 meq PO ONCE ONE Stop: 04/13/17 14:21 Sodium Chloride ([place] -) 2 spray NS BID PRN PRN Reason: NASAL CONGESTION - Objective Vital Signs: Vital Signs Temperature 99.2 F 04/13/17 10:53 Pulse Rate 107 H 04/13/17 10:53 Respiratory Rate 18 04/13/17 10:53 Blood Pressure 112/63 04/13/17 10:53 O2 Sat by Pulse Oximetry (%) 95 04/13/17 09:00 Constitutional: Yes: Calm, Other Cardiovascular: Yes: Regular Rate and Rhythm Respiratory: Yes: Regular, CTA Bilaterally Gastrointestinal: Yes: Normal Bowel Sounds, Soft Musculoskeletal: Yes: Other Extremities: Yes: Other Neurological: Yes: Alert, Oriented Psychiatric: Yes: Alert, Oriented Labs: CBC, BMP 04/13/17 06:00 04/13/17 13:25 INR, PTT INR 1.14 (0.82-1.09) 04/10/17 06:00 Fibrinogen 304.0 mg/dL (238-498) 04/11/17 06:30 Assessment/Plan fever weakness dysuria r/o malaria and other parasite dengue lymphoma malignancy leukocytosis wbc has increased plan continue abx monitor wbc await for biopsy rest as per primary team bone marrow result awaited
[2017-04-13] MEDS ORDERED: SODIUM CHLORIDE 500 ML IV STA (16:56)
[2017-04-13] MEDS ORDERED: INSULIN (NOVOLOG) ASPART 100 UNITS/ML 10ML VIAL ONE (21:47)
[2017-04-13] MEDS: ALBUTEROL SO4 2.5/IPRATROPIUM 0.5 INH SOL 3 ML VIAL.NEB. NEB SCH (22:53)
[2017-04-14] MEDS: POTASSIUM CHLORIDE 10 MEQ in SODIUM CHLORIDE 1,000 ML IVPB SCH ×3 (01:06→11:08)
[2017-04-14] MEDS: INSULIN SLIDING SCALE (NOVOLOG) 1 VIAL SQ SCH ×4 (06:06→21:36)
[2017-04-14] MEDS: ALBUTEROL SO4 2.5/IPRATROPIUM 0.5 INH SOL 3 ML VIAL.NEB. NEB SCH ×4 (07:35→19:47)
[2017-04-14 09:51] LABS: HEMATOCRIT 25.3 % (32.4-45.2); MCH 25.7 pg (25.7-33.7); MCHC 31.5 g/dl (32.0-36.0); MEAN CELL VOLUME 81.5 fl (80-96); MEAN PLT VOLUME 8.2 fl (7.5-11.1); PLATELET COUNT 123 K/MM3 (134-434); RDW 16.8 % (11.6-15.6); WHITE BLOOD COUNT 21.3 K/mm3 (4.0-10.0)
--- NOTE | 2017-04-14 09:58 | PATH ---
Surgical Pathology Report Patient Name: BARBARA DEVINE [facility]. Rec. #: [id number] /Age/Gender: 1960 (Age: 56) / F Account: [id number] Location: [facility] MED/SURG Taken: 04/11/2017 Received: 04/11/2017 Reported: 04/14/2017 Physicians: Esthela Rogers ACNP Specimen(s) Received PERIPHERAL BLOOD Clinical History Leukocytosis, lymphadenopathy Final Diagnosis FLOW CYTOMETRY performed and interpreted at [facility] laboratory, [place], [place] ([id number]) shows the following: INTERPRETATION: Granulocytosis with mild left-shift (see comment). COMMENT: Correlate with morphologic and clinical findings for further evaluation of the significance of the observed left-shifted granulocytosis. PHENOTYPE: Granulocytes are increased with a mild increase in immature/left-shifted forms. However, no aberrant marker expression is noted and blasts are not detected. Lymphocytes are proportionally decreased but include polyclonal B cells, and immunophenotypically normal T cells with mildly increase CD4:CD8. See [facility] report ([id number]) for additional details. Electronically Signed Wen Ruffin M.D. Gross Description Received are 2 green top tubes of peripheral blood which are sent to [facility]. 04/11/2017 saudi04/11/2017
[2017-04-14 10:12] LABS: ALBUMIN 1.7 g/dl (3.4-5.0); ANION GAP 9 (8-16); BLOOD UREA NITROGEN 7 mg/dL (7-18); CALCIUM 7.3 mg/dL (8.5-10.1); CHLORIDE 111 mmol/L (98-107); CO2 20 mmol/L (21-32); CREATININE 0.6 mg/dL (0.55-1.02); GLUCOSE,RANDOM 88 mg/dL (74-106); MAGNESIUM 1.6 mg/dL (1.8-2.4); POTASSIUM 3.8 mmol/L (3.5-5.1); SGOT/AST 225 U/L (15-37); SGPT/ALT 59 U/L (12-78); SODIUM 140 mmol/L (136-145)
[2017-04-14 10:13] LABS: ALK PHOS 108 U/L (45-117); BILIRUBIN,TOTAL 0.9 mg/dL (0.2-1.0); TOT PROT 5.5 g/dl (6.4-8.2)
[2017-04-14] MEDS ORDERED: MAGNESIUM SULF 50% (8.12 MEQ/2 ML-1 GM VIAL) IVPB ONE (10:23)
--- NOTE | 2017-04-14 10:54 | PN ---
Progress Note, Physician History of Present Illness: patient very weak events noted from last nght patient started to wheeze now on venti mask wbc has increased - Current Medication List Current Medications: Active Medications Al Hydroxide/Mg Hydroxide (Mylanta Oral Suspension -) 30 ml PO Q6H PRN PRN Reason: DYSPEPSIA Last Admin: 04/10/17 16:18 Dose: 30 ml Albuterol/Ipratropium (Duoneb -) 1 amp NEB RQID [facility] Last Admin: 04/14/17 07:35 Dose: 1 amp Allopurinol (Zyloprim -) 300 mg PO DAILY [facility] Last Admin: 04/13/17 09:57 Dose: 300 mg Atenolol (Tenormin -) 100 mg PO DAILY [facility] Last Admin: 04/13/17 09:56 Dose: 100 mg Potassium Chloride 10 meq/ (Sodium Chloride) 1,005 mls @ 100 mls/hr IVPB Q10H [facility] Last Admin: 04/14/17 05:50 Dose: 100 mls/hr Doxycycline Hyclate 100 mg/ (Dextrose) 100 mls @ 50 mls/hr IVPB BID [facility] Last Admin: 04/13/17 23:28 Dose: 50 mls/hr Ertapenem 1 gm/ Sodium (Chloride) 100 mls @ 100 mls/hr IVPB DAILY [facility] PRN Reason: Protocol Last Admin: 04/13/17 09:56 Dose: 100 mls/hr MAGNESIUM SULFATE IN WATER (Magnesium Sulf 2 G/50 Ml Bag) 2 gm in 50 mls @ 50 mls/hr IVPB ONCE ONE Stop: 04/14/17 11:59 Ibuprofen (Motrin -) 600 mg PO Q6H PRN PRN Reason: FEVER Last Admin: 04/13/17 23:35 Dose: 600 mg Insulin Aspart (Novolog Vial Sliding Scale -) 1 vial SQ ACHS [facility] PRN Reason: Protocol Last Admin: 04/14/17 06:06 Dose: Not Given Pantoprazole Sodium (Protonix -) 40 mg PO DAILY [facility] Last Admin: 04/13/17 09:56 Dose: 40 mg Sodium Chloride ([place] Nasal [place] -) 2 spray NS BID PRN PRN Reason: NASAL CONGESTION - Objective Vital Signs: Vital Signs Temperature 98.1 F 04/14/17 07:51 Pulse Rate 84 04/14/17 07:51 Respiratory Rate 18 04/14/17 07:51 Blood Pressure 92/53 04/14/17 07:51 O2 Sat by Pulse Oximetry (%) 98 04/13/17 21:00 Constitutional: Yes: Other Cardiovascular: Yes: Regular Rate and Rhythm Respiratory: Yes: Regular, CTA Bilaterally, Wheezes (scattered) Gastrointestinal: Yes: Normal Bowel Sounds, Soft Musculoskeletal: Yes: WNL Extremities: Yes: WNL Neurological: Yes: Alert Psychiatric: Yes: Alert Labs: CBC, BMP 04/14/17 09:22 04/14/17 09:22 INR, PTT INR 1.14 (0.82-1.09) 04/10/17 06:00 Fibrinogen 304.0 mg/dL (238-498) 04/11/17 06:30 Assessment/Plan fever weakness dysuria r/o malaria and other parasite dengue lymphoma malignancy leukocytosis wbc continues to increase--more of reactive type ,has been afebrile for some time plan continue abx monitor wbc still awaiting lymph node biopsy supportive treatment
[2017-04-14] MEDS ORDERED: MAGNESIUM SULFATE IN WATER 2 GM/50 ML IVPB IVPB ONE (11:00)
[2017-04-14] MEDS: ERTAPENEM SODIUM 1 GM in SODIUM CHLORIDE 100 ML IVPB SCH (11:06)
[2017-04-14] MEDS: DOXYCYCLINE INJECTION 100 MG in DEXTROSE 5%-WATER - 100 ML IVPB SCH ×2 (11:07→21:36)
[2017-04-14] MEDS: ALLOPURINOL 300 MG TABLET (FP) PO SCH (11:08)
[2017-04-14] MEDS: PANTOPRAZOLE 40 MG TABLET (FP) PO SCH (11:10)
[2017-04-14] MEDS: IBUPROFEN 600 MG TABLET (FP) PO PRN ×2 (11:12→23:14)
[2017-04-14] MEDS: ATENOLOL 50 MG TABLET (FP) PO SCH (11:16)
[2017-04-14 11:28] LABS: ANISOCYTOSIS 1+; MACROCYTOSIS 0; PLATELET ESTIMATE DECREASED
[2017-04-14] MEDS ORDERED: FUROSEMIDE 40 MG/4 ML INJECTABLE VIAL IVPUSH ONE (12:30)
--- NOTE | 2017-04-14 12:50 | PN ---
Physical Exam: SUBJECTIVE: Patient seen and examined at the bedside. 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 to be initiated, paperwork sent - Lasix 40mg x 1 now for increased congestion and bilateral lower ext edema - [facility] transfer julio c called [phone] intiated/spoke to Gideon, transfer form sent Awaiting call back, my cell phone no provided. - Given Lasix for fluid overload, increased congestion on chest xray Vital Signs Period Temp Pulse Resp BP Sys/Carcamo Pulse Ox Last 24 Hr 98.1 F-100.2 F 78-96 18-30 85-114/53-68 98 ENERAL: The patient is awake, alert, and fully oriented, in no acute distress. HEAD: Normal with no signs of trauma. EYES: PERRL, extraocular movements intact, sclera anicteric, conjunctiva clear. No ptosis. ENT: Ears normal, nares patent, oropharynx clear without exudates, moist mucous membranes. NECK: Trachea midline, full range of motion, supple. LUNGS: +crackles on left lung base, right lung diminished, lasix 40mg x 1 ABDOMEN: Soft, mildly distended, no abdominal pain, + bowel sounds, BM today EXTREMITIES: bilateral lower extremity edema, non pitting NEUROLOGICAL: Normal speech, gait not observed. PSYCH: Normal mood, normal affect. SKIN: Warm, dry, normal turgor, no rashes or lesions noted Laboratory Results - last 24 hr 04/13/17 04/13/17 04/13/17 13:25 16:40 22:43 WBC RBC Hgb Hct MCV MCH MCHC RDW Plt Count MPV Neutrophils % Neutrophils % (Manual) Band Neutrophils % Lymphocytes % Lymphocytes % (Manual) Monocytes % (Manual) Eosinophils % (Manual) Basophils % (Manual) Myelocytes % (Man) Promyelocytes % (Man) Metamyelocytes Hypochromia Platelet Estimate Polychromasia Poikilocytosis Anisocytosis Microcytosis Macrocytosis Sodium Potassium 3.3 L Chloride Carbon Dioxide Anion Gap BUN Creatinine Creat Clearance w eGFR POC Glucometer 110 91 Random Glucose Calcium Magnesium Total Bilirubin AST ALT Alkaline Phosphatase Total Protein Albumin 04/14/17 04/14/17 04/14/17 05:53 09:22 09:22 WBC 21.3 H RBC 3.10 L Hgb 8.0 L Hct 25.3 L MCV 81.5 MCH 25.7 MCHC 31.5 L RDW 16.8 H Plt Count 123 L MPV 8.2 Neutrophils % No Result Required. Neutrophils % (Manual) 60.6 Band Neutrophils % 19.2 Lymphocytes % No Result Required. Lymphocytes % (Manual) 5.8 L D Monocytes % (Manual) 5 Eosinophils % (Manual) 3.8 D Basophils % (Manual) 0.0 Myelocytes % (Man) 4 H D Promyelocytes % (Man) 0 Metamyelocytes 1 D Hypochromia 0 Platelet Estimate Decreased Polychromasia 1+ Poikilocytosis 0 Anisocytosis 1+ Microcytosis 1+ Macrocytosis 0 Sodium 140 Potassium 3.8 Chloride 111 H Carbon Dioxide 20 L Anion Gap 9 BUN 7 Creatinine 0.6 Creat Clearance w eGFR > 60 POC Glucometer 96 Random Glucose 88 Calcium 7.3 L Magnesium 1.6 L Total Bilirubin 0.9 D AST 225 H ALT 59 Alkaline Phosphatase 108 Total Protein 5.5 L Albumin 1.7 L 04/14/17 11:10 WBC RBC Hgb Hct MCV MCH MCHC RDW Plt Count MPV Neutrophils % Neutrophils % (Manual) Band Neutrophils % Lymphocytes % Lymphocytes % (Manual) Monocytes % (Manual) Eosinophils % (Manual) Basophils % (Manual) Myelocytes % (Man) Promyelocytes % (Man) Metamyelocytes Hypochromia Platelet Estimate Polychromasia Poikilocytosis Anisocytosis Microcytosis Macrocytosis Sodium Potassium Chloride Carbon Dioxide Anion Gap BUN Creatinine Creat Clearance w eGFR POC Glucometer 86 Random Glucose Calcium Magnesium Total Bilirubin AST ALT Alkaline Phosphatase Total Protein Albumin Active Medications Generic Name Dose Route Start Last Admin Trade Name Freq PRN Reason Stop Dose Admin Al Hydroxide/Mg Hydroxide 30 ml 04/10/17 16:09 04/10/17 16:18 Mylanta Oral Suspension - PO 30 ml Q6H PRN Administration DYSPEPSIA Albuterol/Ipratropium 1 amp 04/13/17 22:45 04/14/17 11:00 Duoneb - NEB 1 amp RQID JOAQUÍN Administration Allopurinol 300 mg 04/09/17 20:15 04/14/17 11:08 Zyloprim - PO 300 mg DAILY JOAQUÍN Administration Atenolol 100 mg 04/07/17 10:00 04/14/17 11:16 Tenormin - PO 100 mg DAILY JOAQUÍN Administration Potassium Chloride 10 meq/ 1,005 mls @ 100 mls/hr 04/12/17 08:15 04/14/17 11: 08 Sodium Chloride IVPB Not Given Q10H JOAQUÍN Doxycycline Hyclate 100 mg/ 100 mls @ 50 mls/hr 04/12/17 11:00 04/14/17 11:07 Dextrose IVPB 50 mls/hr BID JOAQUÍN Administration Ertapenem 1 gm/ Sodium 100 mls @ 100 mls/hr 04/12/17 11:45 04/14/17 11:06 Chloride IVPB 100 mls/hr DAILY JOAQUÍN Administration Protocol Ibuprofen 600 mg 04/08/17 09:53 04/14/17 11:12 Motrin - PO 600 mg Q6H PRN Administration FEVER Insulin Aspart 1 vial 04/09/17 22:00 04/14/17 11:11 Novolog Vial Sliding Scale - SQ Not Given ACHS JOAQUÍN Protocol Pantoprazole Sodium 40 mg 04/08/17 10:00 04/14/17 11:10 Protonix - PO 40 mg DAILY JOAQUÍN Administration Sodium Chloride 2 spray 04/12/17 15:36 [place] Nasal [place] - NS BID PRN NASAL CONGESTION ASSESSMENT/PLAN: Patient is a 56 year old female with a significant past medical history of hypertension and diabetes mellitus. She had a previous hospitalization in November 2016 for fever of unknown origin and was reported to have had a possible chikungunya infection. Hospitalized in [facility] from mid-February to early March for same reason. ID/Hematology/Oncology: Fever of unknown origin/rule out Sepsis Febrile again today, WBC trending up, tacycardia persists, fevers persist Infectious vs. lymphoma vs. 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, ferritin >60K, enlarged spleen, fevers Bone marrow biopsy results pending For lymph node biopsy tomorrow with Dr. Buckner, NPO @ midnight lymph nodes to small to biopsy with IR,will need excisional biopsy Oncology following, discussed case ID following, remains on antibiotics Transfer to [facility] initiated, transfer form and requested paper work sent to [facility] Rheumatology consult Anemia, likely chronic one marrow biopsy results pending monitor CBC, will transfuse if hmg <7 Cardiology: Hypertension, controlled Continue atenolol Monitor in the setting of sepsis Endocrine: NIDDM, monitor Novolog sliding scale coverage Monitor BGMs F.E.N Fluids: NS @ 42cc/hr, NPO at midnight for lymph node biopsy Electrolytes: repleted Nutrition: NPO Prophy: DVT: SCDS, Hold anticoagulation for lymph node biopsy GI: Protonix Disposition: Initiated transfer to [facility], pt needs further workup. Awaiting call back from [facility]. full code. Visit type - Emergency Visit Emergency Visit: Yes ED Registration Date: 04/10/17 Care time: The patient presented to the Emergency Department on the above date and was hospitalized for further evaluation of their emergent condition. - New Patient This patient is new to me today: No - Critical Care Critical Care patient: No - Discharge Referral Referred to [facility] No
[2017-04-14] MEDS ORDERED: TETRAHYDROZOLINE HCL EYE DROPS OU PRN (14:05)
--- NOTE | 2017-04-14 14:34 | PN ---
Progress Note (short form) - Note Progress Note: Patient seen and examined Feels weak, epigastric discomfort received some lasix Last Vital Signs Temp Pulse Resp BP Pulse Ox 98.2 F 83 18 92/50 98 04/14/17 15:36 04/14/17 15:36 04/14/17 15:36 04/14/17 15:36 04/13/17 21:00 Cor: RSR, No murmurs, No gallops Lungs: Clear to P&A Abd: Soft, Normal bowel sounds, No organomegaly Ext:No significant edema Abnormal Lab Results 04/09/17 04/14/17 04/14/17 06:30 09:22 09:22 WBC 21.3 H RBC 3.10 L Hgb 8.0 L Hct 25.3 L MCHC 31.5 L RDW 16.8 H Plt Count 123 L Lymphocytes % (Manual) 5.8 L D Myelocytes % (Man) 4 H D Chloride 111 H Carbon Dioxide 20 L Calcium 7.3 L Magnesium 1.6 L AST 225 H Total Protein 5.5 L Albumin 1.7 L Dengue Fever IgG Ab >15.00 H Active Medications Generic Name Dose Route Start Last Admin Trade Name Freq PRN Reason Stop Dose Admin Al Hydroxide/Mg Hydroxide 30 ml 04/10/17 16:09 04/10/17 16:18 Mylanta Oral Suspension - PO 30 ml Q6H PRN Administration DYSPEPSIA Albuterol/Ipratropium 1 amp 04/13/17 22:45 04/14/17 15:44 Duoneb - NEB 1 amp RQID JOAQUÍN Administration Allopurinol 300 mg 04/09/17 20:15 04/14/17 11:08 Zyloprim - PO 300 mg DAILY JOAQUÍN Administration Atenolol 100 mg 04/07/17 10:00 04/14/17 11:16 Tenormin - PO 100 mg DAILY JOAQUÍN Administration Ciprofloxacin 2 drop 04/14/17 18:00 Ciloxan 0.3% Eye Drops - OU Q4HWA [facility] Doxycycline Hyclate 100 mg/ 100 mls @ 50 mls/hr 04/12/17 11:00 04/14/17 11:07 Dextrose IVPB 50 mls/hr BID JOAQUÍN Administration Ertapenem 1 gm/ Sodium 100 mls @ 100 mls/hr 04/12/17 11:45 04/14/17 11:06 Chloride IVPB 100 mls/hr DAILY JOAQUÍN Administration Protocol Ibuprofen 600 mg 04/08/17 09:53 04/14/17 11:12 Motrin - PO 600 mg Q6H PRN Administration FEVER Insulin Aspart 1 vial 04/09/17 22:00 04/14/17 11:11 Novolog Vial Sliding Scale - SQ Not Given ACHS JOAQUÍN Protocol Pantoprazole Sodium 40 mg 04/08/17 10:00 04/14/17 11:10 Protonix - PO 40 mg DAILY JOAQUÍN Administration Sodium Chloride 2 spray 04/12/17 15:36 [place] - NS BID PRN NASAL CONGESTION Tetrahydrozoline HCl 1 drop 04/14/17 14:05 Visine - OU QID PRN dry eyes A/P 56 y/o female presented with fevers of unknown origin and , has been living in the ER, Ferritin on this admission is 59K! with all other acute phase reactants increased. -s/p bone marrow biopsy for work-up of HLH, -discussed with IR--nodes too small to biopsy--will request excisional bx with surgery. IF not able then will need mediastinoscopy -discussed with ID team --unlikely infectious aetiology at this time. Process may have been triggered by chikungunya infection in 12/01 -- to get thrumatology consult --to consider steroids --discussed with daughter possible transfer to [facility]
--- NOTE | 2017-04-14 16:54 | CONSULT ---
- Consultation REQUESTING PROVIDER: Rupesh SANDY CONSULT REQUEST: We have been asked to surgically evaluate this patient for ( specify). PCP:Luan Barba NP HISTORY OF PRESENT ILLNESS: 56 y/o female admitted w/ FUO; consult requested for possible right AXLNBx.; rest of hx. obtained from the chart PMHx: hypertension PSHx: none Home Medications Medication Instructions Recorded Atenolol [Tenormin -] 100 mg PO DAILY #30 tablet 12/01/16 Allergies Allergy/AdvReac Type Severity Reaction Status Date / Time aspirin Allergy Verified 04/09/17 09:47 Iodinated Contrast- Oral and AdvReac Intermediate Difficulty Verified 04/09/17 09:50 IV Dye Breathing Penicillins AdvReac Verified 04/11/17 13:17 PHYSICAL EXAM: GENERAL: Awake, alert, and not fully oriented, in no acute distress. HEAD: Normal with no signs of trauma. ABDOMEN: Soft, nontender, not distended, normoactive bowel sounds, no guarding, no rebound, no masses. No organomegaly. MUSCULOSKELETAL: Normal ROM at all joints. No bony deformities or tenderness. No CVA tenderness. UPPER EXTREMITIES: 2+ pulses, warm, well-perfused. No cyanosis. Cap refill <2 seconds. No peripheral edema. LOWER EXTREMITIES: 2+ pulses, warm, well-perfused. No calf tenderness. No peripheral edema. NEUROLOGICAL: Normal speech, gait not observed. PSYCH: Cooperative. Good eye contact. Appropriate mood and affect. SKIN: Warm, dry, normal turgor, no rashes or lesions noted. ? plapable right axillary lymph node; no other gross evidence of palpable adenopathy Vital Signs Temperature 98.2 F 04/14/17 15:36 Pulse Rate 83 04/14/17 15:36 Respiratory Rate 18 04/14/17 15:36 Blood Pressure 92/50 04/14/17 15:36 O2 Sat by Pulse Oximetry (%) 98 04/13/17 21:00 Lab Results WBC 21.3 K/mm3 (4.0-10.0) H 04/14/17 09:22 RBC 3.10 M/mm3 (3.60-5.2) L 04/14/17 09:22 Hgb 8.0 GM/dL (10.7-15.3) L 04/14/17 09:22 Hct 25.3 % (32.4-45.2) L 04/14/17 09:22 MCV 81.5 fl (80-96) 04/14/17 09:22 MCHC 31.5 g/dl (32.0-36.0) L 04/14/17 09:22 RDW 16.8 % (11.6-15.6) H 04/14/17 09:22 Plt Count 123 K/MM3 (134-434) L 04/14/17 09:22 Sodium 140 mmol/L (136-145) 04/14/17 09:22 Potassium 3.8 mmol/L (3.5-5.1) 04/14/17 09:22 Chloride 111 mmol/L (98-107) H 04/14/17 09:22 Carbon Dioxide 20 mmol/L (21-32) L 04/14/17 09:22 Anion Gap 9 (8-16) 04/14/17 09:22 BUN 7 mg/dL (7-18) 04/14/17 09:22 Creatinine 0.6 mg/dL (0.55-1.02) 04/14/17 09:22 Random Glucose 88 mg/dL (74-106) 04/14/17 09:22 Calcium 7.3 mg/dL (8.5-10.1) L 04/14/17 09:22 Blood Type O POSITIVE 04/07/17 09:55 Antibody Screen Negative 04/07/17 03:00 INR 1.14 (0.82-1.09) 04/10/17 06:00 w/u to date reviewed IMP: lymphadenopathy PLAN:For OR 04/15/17 pending d/w daughter; I do not believe patient has enough insight into her disease process to adequately consent to the procedure and based on imaging no guarantee that a pathologic node will be found but axilla can certainly be explored for tissue. Last Buckner MD FACS Visit type - Case Type Case Type: ED Admission - Emergency Emergency Visit: Yes ED Registration Date: 04/10/17 Care time: The patient presented to the Emergency Department on the above date and was hospitalized for further evaluation of their emergent condition. - New patient This patient is new to me today: Yes Date on this admission: 04/14/17
[2017-04-14] MEDS ORDERED: ENOXAPARIN NA (PORCINE) 40 MG/0.4 ML DISP.SYRIN SQ SCH (17:00)
[2017-04-14] MEDS ORDERED: SODIUM CHLORIDE 1,000 ML IV SCH (18:00)
[2017-04-14] MEDS: CIPROFLOXACIN HCL 0.3% OPHTH 2.5ML BOTTLE OU SCH ×2 (18:38→21:36)
[2017-04-14] MEDS ORDERED: PT OWN MED DRAWER 7, Y5N ONE ×2 (18:52→21:28)
--- NOTE | 2017-04-14 19:16 | PN ---
Physical Exam: SUBJECTIVE: Patient seen and examined OBJECTIVE: Vital Signs Period Temp Pulse Resp BP Sys/[place] Pulse Ox Last 24 Hr 98.1 F-99.1 F 80-94 18-30 92-106/50-64 98 GENERAL: The patient is awake, alert, and fully oriented, in no acute distress. HEAD: Normal with no signs of trauma. EYES: PERRL, extraocular movements intact, sclera anicteric, conjunctiva clear. No ptosis. ENT: Ears normal, nares patent, oropharynx clear without exudates, moist mucous membranes. NECK: Trachea midline, full range of motion, supple. LUNGS: Breath sounds equal, clear to auscultation bilaterally, no wheezes, no crackles, no accessory muscle use. HEART: Regular rate and rhythm, S1, S2 without murmur, rub or gallop. ABDOMEN: Soft, nontender, nondistended, normoactive bowel sounds, no guarding, no rebound, no hepatosplenomegaly, no masses. EXTREMITIES: 2+ pulses, warm, well-perfused, no edema. NEUROLOGICAL: Cranial nerves II through XII grossly intact. Normal speech, gait not observed. PSYCH: Normal mood, normal affect. SKIN: Warm, dry, normal turgor, no rashes or lesions noted Laboratory Results - last 24 hr 04/09/17 04/13/17 04/14/17 06:30 22:43 05:53 WBC RBC Hgb Hct MCV MCH MCHC RDW Plt Count MPV Neutrophils % Neutrophils % (Manual) Band Neutrophils % Lymphocytes % Lymphocytes % (Manual) Monocytes % (Manual) Eosinophils % (Manual) Basophils % (Manual) Myelocytes % (Man) Promyelocytes % (Man) Metamyelocytes Hypochromia Platelet Estimate Polychromasia Poikilocytosis Anisocytosis Microcytosis Macrocytosis Sodium Potassium Chloride Carbon Dioxide Anion Gap BUN Creatinine Creat Clearance w eGFR POC Glucometer 91 96 Random Glucose Calcium Magnesium Total Bilirubin AST ALT Alkaline Phosphatase Total Protein Albumin Dengue Fever IgG Ab >15.00 H Dengue Fever IgM Ab <1.00 04/14/17 04/14/17 04/14/17 09:22 09:22 11:10 WBC 21.3 H RBC 3.10 L Hgb 8.0 L Hct 25.3 L MCV 81.5 MCH 25.7 MCHC 31.5 L RDW 16.8 H Plt Count 123 L MPV 8.2 Neutrophils % No Result Required. Neutrophils % (Manual) 60.6 Band Neutrophils % 19.2 Lymphocytes % No Result Required. Lymphocytes % (Manual) 5.8 L D Monocytes % (Manual) 5 Eosinophils % (Manual) 3.8 D Basophils % (Manual) 0.0 Myelocytes % (Man) 4 H D Promyelocytes % (Man) 0 Metamyelocytes 1 D Hypochromia 0 Platelet Estimate Decreased Polychromasia 1+ Poikilocytosis 0 Anisocytosis 1+ Microcytosis 1+ Macrocytosis 0 Sodium 140 Potassium 3.8 Chloride 111 H Carbon Dioxide 20 L Anion Gap 9 BUN 7 Creatinine 0.6 Creat Clearance w eGFR > 60 POC Glucometer 86 Random Glucose 88 Calcium 7.3 L Magnesium 1.6 L Total Bilirubin 0.9 D AST 225 H ALT 59 Alkaline Phosphatase 108 Total Protein 5.5 L Albumin 1.7 L Dengue Fever IgG Ab Dengue Fever IgM Ab 04/14/17 17:45 WBC RBC Hgb Hct MCV MCH MCHC RDW Plt Count MPV Neutrophils % Neutrophils % (Manual) Band Neutrophils % Lymphocytes % Lymphocytes % (Manual) Monocytes % (Manual) Eosinophils % (Manual) Basophils % (Manual) Myelocytes % (Man) Promyelocytes % (Man) Metamyelocytes Hypochromia Platelet Estimate Polychromasia Poikilocytosis Anisocytosis Microcytosis Macrocytosis Sodium Potassium Chloride Carbon Dioxide Anion Gap BUN Creatinine Creat Clearance w eGFR POC Glucometer 108 Random Glucose Calcium Magnesium Total Bilirubin AST ALT Alkaline Phosphatase Total Protein Albumin Dengue Fever IgG Ab Dengue Fever IgM Ab Active Medications Generic Name Dose Route Start Last Admin Trade Name Freq PRN Reason Stop Dose Admin Al Hydroxide/Mg Hydroxide 30 ml 04/10/17 16:09 04/10/17 16:18 Mylanta Oral Suspension - PO 30 ml Q6H PRN Administration DYSPEPSIA Albuterol/Ipratropium 1 amp 04/13/17 22:45 04/14/17 15:44 Duoneb - NEB 1 amp RQID JOAQUÍN Administration Allopurinol 300 mg 04/09/17 20:15 04/14/17 11:08 Zyloprim - PO 300 mg DAILY JOAQUÍN Administration Atenolol 100 mg 04/07/17 10:00 04/14/17 11:16 Tenormin - PO 100 mg DAILY JOAQUÍN Administration Ciprofloxacin 2 drop 04/14/17 18:00 04/14/17 18:38 Ciloxan 0.3% Eye Drops - OU 2 drop Q4HWA JOAQUÍN Administration Enoxaparin Sodium 40 mg 04/14/17 17:00 04/14/17 18:38 Lovenox - SQ 40 mg DAILY JOAQUÍN Administration Doxycycline Hyclate 100 mg/ 100 mls @ 50 mls/hr 04/12/17 11:00 04/14/17 11:07 Dextrose IVPB 50 mls/hr BID JOAQUÍN Administration Ertapenem 1 gm/ Sodium 100 mls @ 100 mls/hr 04/12/17 11:45 04/14/17 11:06 Chloride IVPB 100 mls/hr DAILY JOAQUÍN Administration Protocol Sodium Chloride 1,000 mls @ 42 mls/hr 04/14/17 18:00 04/14/17 18:41 Normal Saline - IV 42 mls/hr ASDIR JOAQUÍN Administration Ibuprofen 600 mg 04/08/17 09:53 04/14/17 11:12 Motrin - PO 600 mg Q6H PRN Administration FEVER Insulin Aspart 1 vial 04/09/17 22:00 04/14/17 17:46 Novolog Vial Sliding Scale - SQ Not Given ACHS JOAQUÍN Protocol Pantoprazole Sodium 40 mg 04/08/17 10:00 04/14/17 11:10 Protonix - PO 40 mg DAILY JOAQUÍN Administration Sodium Chloride 2 spray 04/12/17 15:36 [place] Nas[place] - NS BID PRN NASAL CONGESTION Tetrahydrozoline HCl 1 drop 04/14/17 14:05 Visine - OU QID PRN dry eyes ASSESSMENT/PLAN:
[2017-04-15] MEDS ORDERED: PT OWN MED DRAWER 7, Y5N ONE ×5 (06:00→17:56)
[2017-04-15] MEDS: INSULIN SLIDING SCALE (NOVOLOG) 1 VIAL SQ SCH ×4 (06:02→22:37)
[2017-04-15] MEDS: CIPROFLOXACIN HCL 0.3% OPHTH 2.5ML BOTTLE OU SCH ×5 (06:02→23:08)
[2017-04-15] MEDS: ALBUTEROL SO4 2.5/IPRATROPIUM 0.5 INH SOL 3 ML VIAL.NEB. NEB SCH ×4 (07:05→20:56)
[2017-04-15 08:07] LABS: HEMATOCRIT 21.5 % (32.4-45.2); MCH 25.9 pg (25.7-33.7); MCHC 31.9 g/dl (32.0-36.0); MEAN CELL VOLUME 81.3 fl (80-96); MEAN PLT VOLUME 8.1 fl (7.5-11.1); PLATELET COUNT 118 K/MM3 (134-434); RBC 2.64 M/mm3 (3.60-5.2); RDW 16.8 % (11.6-15.6); WHITE BLOOD COUNT 20.1 K/mm3 (4.0-10.0)
[2017-04-15 08:09] LABS: INR 1.32 (0.82-1.09); PROTHROMBIN TIME (PATIENT) 14.9 SEC (9.98-11.88)
[2017-04-15 08:16] LABS: ALBUMIN 1.5 g/dl (3.4-5.0); ANION GAP 11 (8-16); BLOOD UREA NITROGEN 6 mg/dL (7-18); CALCIUM 7.5 mg/dL (8.5-10.1); CHLORIDE 109 mmol/L (98-107); CO2 21 mmol/L (21-32); GLUCOSE,RANDOM 84 mg/dL (74-106); POTASSIUM 3.5 mmol/L (3.5-5.1); SODIUM 141 mmol/L (136-145)
[2017-04-15 08:31] LABS: ALK PHOS 90 U/L (45-117); BILIRUBIN,TOTAL 0.7 mg/dL (0.2-1.0); CREATININE 0.5 mg/dL (0.55-1.02); MAGNESIUM 1.7 mg/dL (1.8-2.4); SGOT/AST 188 U/L (15-37); SGPT/ALT 49 U/L (12-78); URIC ACID 2.1 mg/dL (2.6-7.2)
[2017-04-15 08:36] LABS: ADD RBC MORPHOLOGY YES
[2017-04-15 08:58] LABS: HEMOGLOBIN 6.8 GM/dL (10.7-15.3)
[2017-04-15 09:22] LABS: LDH 1404 U/L (84-246)
[2017-04-15] MEDS: PANTOPRAZOLE 40 MG TABLET (FP) PO SCH (09:28)
[2017-04-15] MEDS: ATENOLOL 50 MG TABLET (FP) PO SCH (09:29)
[2017-04-15] MEDS: ALLOPURINOL 300 MG TABLET (FP) PO SCH (09:29)
[2017-04-15] MEDS ORDERED: ACETAMINOPHEN 325 MG TABLET (FP) PO ONE ×2 (09:30→13:30)
[2017-04-15] MEDS: DOXYCYCLINE INJECTION 100 MG in DEXTROSE 5%-WATER - 100 ML IVPB SCH (09:32)
--- NOTE | 2017-04-15 10:34 | PN ---
Progress Note (short form) - Note Progress Note: seen and examined. events noted for PRBC transfusion and for Axillary LN biopsy today. Pt feels weak today and now also has cough. Constitutional: Yes: weak, calm fatigued Eyes: Yes: Conjunctiva Clear HENT: Yes: Atraumatic, Normocephalic Neck: Yes: Supple, Trachea Midline Cardiovascular: Yes: Regular Rate and Rhythm, Bradycardia Respiratory: Yes: Regular, CTA Bilaterally Gastrointestinal: Yes: Normal Bowel Sounds, Soft, Abdomen, Obese Breast(s): Yes: WNL, Other (+rt axillary LAD to palpate.) Musculoskeletal: Yes: WNL Extremities: Yes: WNL Edema: No Last Vital Signs Temp Pulse Resp BP Pulse Ox 99.6 F 96 H 20 84/49 94 L 04/15/17 09:27 04/15/17 09:27 04/15/17 09:27 04/15/17 09:27 04/14/17 21:00 CBC, BMP 04/15/17 06:30 04/15/17 06:30 Current Medications Generic Name Dose Route Start Last Admin Trade Name Freq PRN Reason Stop Dose Admin Al Hydroxide/Mg Hydroxide 30 ml 04/10/17 16:09 04/10/17 16:18 Mylanta Oral Suspension - PO 30 ml Q6H PRN Administration DYSPEPSIA Albuterol/Ipratropium 1 amp 04/13/17 22:45 04/15/17 07:05 Duoneb - NEB 1 amp RQID JOAQUÍN Administration Allopurinol 300 mg 04/09/17 20:15 04/15/17 09:29 Zyloprim - PO Not Given DAILY JOAQUÍN Atenolol 100 mg 04/07/17 10:00 04/15/17 09:29 Tenormin - PO Not Given DAILY JOAQUÍN Ciprofloxacin 2 drop 04/14/17 18:00 04/15/17 09:33 Ciloxan 0.3% Eye Drops - OU 2 drop Q4HWA JOAQUÍN Administration Doxycycline Hyclate 100 mg/ 100 mls @ 50 mls/hr 04/12/17 11:00 04/15/17 09:32 Dextrose IVPB 50 mls/hr BID JOAQUÍN Administration Ertapenem 1 gm/ Sodium 100 mls @ 100 mls/hr 04/12/17 11:45 04/14/17 11:06 Chloride IVPB 100 mls/hr DAILY JOAQUÍN Administration Protocol Sodium Chloride 1,000 mls @ 42 mls/hr 04/14/17 18:00 04/14/17 18:41 Normal Saline - IV 42 mls/hr ASDIR JOAQUÍN Administration Ibuprofen 600 mg 04/08/17 09:53 04/14/17 23:14 Motrin - PO 600 mg Q6H PRN Administration FEVER Insulin Aspart 1 vial 04/09/17 22:00 04/15/17 06:02 Novolog Vial Sliding Scale - SQ Not Given ACHS JOAQUÍN Protocol Pantoprazole Sodium 40 mg 04/08/17 10:00 04/15/17 09:28 Protonix - PO Not Given DAILY JOAQUÍN Sodium Chloride 2 spray 04/12/17 15:36 [place] Nasal [place] - NS BID PRN NASAL CONGESTION FUO High concern for HLH (secondary, underlying possible Lympho proliferative disorders vs the infection she had in the past vs unknown). for PRBC transfusion today Confirmed that IL2 was sent this morning. will await the results for a definitive diagnosis await Bone marrow biopsy results For Axillary LN biopsy today [facility] transfer being considered. will consider steroids, once biopsy is done. c/w allopurinol c/w Gentle hydration Pulm consult. Problem List - Problems (1) Fever Code(s): R50.9 - FEVER, UNSPECIFIED (2) Transaminitis Code(s): R74.0 - NONSPEC ELEV OF LEVELS OF TRANSAMNS & LACTIC ACID DEHYDRGNSE (3) Lymphadenopathy Code(s): R59.1 - GENERALIZED ENLARGED LYMPH NODES (4) UTI (urinary tract infection) Code(s): N39.0 - URINARY TRACT INFECTION, SITE NOT SPECIFIED
[2017-04-15 11:28] LABS: ANISOCYTOSIS 2+; MACROCYTOSIS 1+; OVALOCYTE 1+; PLATELET ESTIMATE DECREASED; TEAR DROP CELLS 1+
[2017-04-15] MEDS ORDERED: LIDOCAINE HCL 1%, 10 MG/ML (20ML VIAL) ONE (11:29)
[2017-04-15] MEDS ORDERED: BUPIVACAINE HCL/PF 0.5% (5MG/ML) 10 ML VIAL ONE (11:29)
[2017-04-15] MEDS ORDERED: ONDANSETRON 4 MG/2 ML VIAL IVPUSH PRN ×2 (11:43→13:30)
[2017-04-15] MEDS ORDERED: MIDAZOLAM HCL 2 MG/2 ML SINGLE DOSE VIAL ONE (12:00)
--- NOTE | 2017-04-15 12:00 | PN ---
Physical Exam: SUBJECTIVE: Patient seen and examined with her daughter Leticia at the bedside. OBJECTIVE: Patient is alert and oriented x 3, she is able to make her own medical decisions , however she gets easily overwhelmed and defers to her daughter. Both patient and daughter agree to transfer to [facility] for continued workup. Dr. Alvarado spoke to Dr. Ojeda ( [facility] Heme-Malignancy attending) and discussed case. Accepting physician is Dr. Carole Cesar. Patient is to get 2 units of blood today. Lasix 40mg to be given after 1st unit of prbc. All medical records, imaging, biopsy reports to be sent with patient. Patient is s/p excisional biopsy today with Dr. Buckner. Vital Signs Period Temp Pulse Resp BP Sys/[place] Pulse Ox Last 24 Hr 98.1 F-100.8 F 83-96 18-20 84-99/49-61 94 GENERAL: The patient is awake, alert, and fully oriented, in no acute distress HEAD: Normal with no signs of trauma. EYES: PERRL, extraocular movements intact, sclera anicteric, conjunctiva clear. No ptosis. ENT: Ears normal, nares patent, oropharynx clear without exudates, moist mucous membranes. NECK: Trachea midline, full range of motion, supple. LUNGS: +crackles on left lung base, right lung diminished, lasix 40mg given yesterday, patient less edematous today. ABDOMEN: Soft, mildly distended, no abdominal pain, + bowel sounds EXTREMITIES: bilateral lower extremity edema, non pitting NEUROLOGICAL: Normal speech, 1 assist out of bed PSYCH: Normal mood, normal affect. Laboratory Results - last 24 hr 04/09/17 04/11/17 04/14/17 06:30 06:30 09:22 WBC RBC Hgb Hct MCV MCH MCHC RDW Plt Count MPV Neutrophils % Neutrophils % (Manual) 60.6 Band Neutrophils % 19.2 Lymphocytes % Lymphocytes % (Manual) 5.8 L D Monocytes % (Manual) 5 Eosinophils % (Manual) 3.8 D Basophils % (Manual) 0.0 Myelocytes % (Man) 4 H D Promyelocytes % (Man) 0 Metamyelocytes 1 D Hypochromia 0 Platelet Estimate Decreased Polychromasia 1+ Poikilocytosis 0 Anisocytosis 1+ Microcytosis 1+ Macrocytosis 0 PT with INR INR PTT (Actin FS) Sodium Potassium Chloride Carbon Dioxide Anion Gap BUN Creatinine Creat Clearance w eGFR POC Glucometer Random Glucose Uric Acid Calcium Magnesium Total Bilirubin AST ALT Alkaline Phosphatase LD Total Total Protein Albumin Globulin 3.3 Beta Globulins 1.0 NARAYAN & SPEP Interp Total Protein (NARAYAN) 5.2 L Albumin (NARAYAN) 1.9 L Albumin/Globulin (NARAYAN) 0.6 L Qphiq-5-Dvttvuijh NARAYAN 0.3 Ysfdf-0-Blsmnhlnk NARAYAN 0.8 Gamma Globulins (NARAYAN) 1.2 NARAYAN M-Primitivo Not observed NARAYAN Comments IEP IgG 1314 IEP IgA 352 IEP IgM 147 Dengue Fever IgG Ab >15.00 H Dengue Fever IgM Ab <1.00 Blood Type Antibody Screen Crossmatch 04/14/17 04/14/17 04/15/17 17:45 21:16 05:45 WBC RBC Hgb Hct MCV MCH MCHC RDW Plt Count MPV Neutrophils % Neutrophils % (Manual) Band Neutrophils % Lymphocytes % Lymphocytes % (Manual) Monocytes % (Manual) Eosinophils % (Manual) Basophils % (Manual) Myelocytes % (Man) Promyelocytes % (Man) Metamyelocytes Hypochromia Platelet Estimate Polychromasia Poikilocytosis Anisocytosis Microcytosis Macrocytosis PT with INR INR PTT (Actin FS) Sodium Potassium Chloride Carbon Dioxide Anion Gap BUN Creatinine Creat Clearance w eGFR POC Glucometer 108 98 93 Random Glucose Uric Acid Calcium Magnesium Total Bilirubin AST ALT Alkaline Phosphatase LD Total Total Protein Albumin Globulin Beta Globulins NARAYAN & SPEP Interp Total Protein (NARAYAN) Albumin (NARAYAN) Albumin/Globulin (NARAYAN) Nzpoz-6-Eqywddhmv NARAYAN Gxhfe-5-Dulvncccu NARAYAN Gamma Globulins (NARAYAN) NARAYAN M-Primitivo NARAYAN Comments IEP IgG IEP IgA IEP IgM Dengue Fever IgG Ab Dengue Fever IgM Ab Blood Type Antibody Screen Crossmatch 04/15/17 04/15/17 04/15/17 06:30 06:30 06:30 WBC 20.1 H RBC 2.64 L Hgb 6.8 L* D Hct 21.5 L D MCV 81.3 MCH 25.9 MCHC 31.9 L RDW 16.8 H Plt Count 118 L MPV 8.1 Neutrophils % No Result Required. Neutrophils % (Manual) Band Neutrophils % Lymphocytes % No Result Required. Lymphocytes % (Manual) Monocytes % (Manual) Eosinophils % (Manual) Basophils % (Manual) Myelocytes % (Man) Promyelocytes % (Man) Metamyelocytes Hypochromia Platelet Estimate Polychromasia Poikilocytosis Anisocytosis Microcytosis Macrocytosis PT with INR 14.90 H INR 1.32 H PTT (Actin FS) 32.0 Sodium 141 Potassium 3.5 Chloride 109 H Carbon Dioxide 21 Anion Gap 11 BUN 6 L Creatinine 0.5 L Creat Clearance w eGFR > 60 POC Glucometer Random Glucose 84 Uric Acid 2.1 L Calcium 7.5 L Magnesium 1.7 L Total Bilirubin 0.7 D AST 188 H ALT 49 Alkaline Phosphatase 90 LD Total 1404 H Total Protein 5.0 L Albumin 1.5 L Globulin Beta Globulins NARAYAN & SPEP Interp Total Protein (NARAYAN) Albumin (NARAYAN) Albumin/Globulin (NARAYAN) Vjxdu-4-Gmrmhlnwy NARAYAN Zikup-5-Zdatpvgxg NARAYAN Gamma Globulins (NARAYAN) NARAYAN M-Primitivo NARAYAN Comments IEP IgG IEP IgA IEP IgM Dengue Fever IgG Ab Dengue Fever IgM Ab Blood Type Antibody Screen Crossmatch 04/15/17 04/15/17 09:55 11:17 WBC RBC Hgb Hct MCV MCH MCHC RDW Plt Count MPV Neutrophils % Neutrophils % (Manual) Band Neutrophils % Lymphocytes % Lymphocytes % (Manual) Monocytes % (Manual) Eosinophils % (Manual) Basophils % (Manual) Myelocytes % (Man) Promyelocytes % (Man) Metamyelocytes Hypochromia Platelet Estimate Polychromasia Poikilocytosis Anisocytosis Microcytosis Macrocytosis PT with INR INR PTT (Actin FS) Sodium Potassium Chloride Carbon Dioxide Anion Gap BUN Creatinine Creat Clearance w eGFR POC Glucometer 110 Random Glucose Uric Acid Calcium Magnesium Total Bilirubin AST ALT Alkaline Phosphatase LD Total Total Protein Albumin Globulin Beta Globulins NARAYAN & SPEP Interp Total Protein (NARAYAN) Albumin (NARAYAN) Albumin/Globulin (NARAYAN) Zlssg-3-Fqgorjqom NARAYAN Thabx-1-Qgoiwapum NARAYAN Gamma Globulins (NARAYAN) NARAYAN M-Primitivo NARAYAN Comments IEP IgG IEP IgA IEP IgM Dengue Fever IgG Ab Dengue Fever IgM Ab Blood Type O POSITIVE Antibody Screen Negative Crossmatch See Detail Active Medications Generic Name Dose Route Start Last Admin Trade Name Freq PRN Reason Stop Dose Admin Al Hydroxide/Mg Hydroxide 30 ml 04/10/17 16:09 04/10/17 16:18 Mylanta Oral Suspension - PO 30 ml Q6H PRN Administration DYSPEPSIA Albuterol/Ipratropium 1 amp 04/13/17 22:45 04/15/17 11:11 Duoneb - NEB 1 amp RQID JOAQUÍN Administration Allopurinol 300 mg 04/09/17 20:15 04/15/17 09:29 Zyloprim - PO Not Given DAILY JOAQUÍN Atenolol 100 mg 04/07/17 10:00 04/15/17 09:29 Tenormin - PO Not Given DAILY JOAQUÍN Ciprofloxacin 2 drop 04/14/17 18:00 04/15/17 09:33 Ciloxan 0.3% Eye Drops - OU 2 drop Q4HWA JOAQUÍN Administration Fentanyl 25 mcg 04/15/17 11:43 Sublimaze Injection - IVPUSH [id number] PRN PAIN-PACU ORDER X 4 DOSES ONLY Doxycycline Hyclate 100 mg/ 100 mls @ 50 mls/hr 04/12/17 11:00 04/15/17 09:32 Dextrose IVPB 50 mls/hr BID JOAQUÍN Administration Ertapenem 1 gm/ Sodium 100 mls @ 100 mls/hr 04/12/17 11:45 04/14/17 11:06 Chloride IVPB 100 mls/hr DAILY JOAQUÍN Administration Protocol Sodium Chloride 1,000 mls @ 42 mls/hr 04/14/17 18:00 04/14/17 18:41 Normal Saline - IV 42 mls/hr ASDIR JOAQUÍN Administration Ibuprofen 600 mg 04/08/17 09:53 04/14/17 23:14 Motrin - PO 600 mg Q6H PRN Administration FEVER Insulin Aspart 1 vial 04/09/17 22:00 04/15/17 06:02 Novolog Vial Sliding Scale - SQ Not Given ACHS [facility] Protocol Ondansetron HCl 4 mg 04/15/17 11:43 Zofran Injection IVPUSH Q6H PRN NAUSEA AND/OR VOMITING Pantoprazole Sodium 40 mg 04/08/17 10:00 04/15/17 09:28 Protonix - PO Not Given DAILY JOAQUÍN Sodium Chloride 2 spray 04/12/17 15:36 [place] Nasal [place] - NS BID PRN NASAL CONGESTION ASSESSMENT/PLAN: Patient is a 56 year old female with a significant past medical history of hypertension and diabetes mellitus. She had a previous hospitalization in November 2016 for fever of unknown origin and was reported to have had a possible chikungunya infection. Hospitalized in [facility] from mid-February to early March for same reason. She presents to [facility] on 04/10/2017 with a diagnosis of fever. She as been pancultured. She is being followed by ID and Hematology Oncology. During her hospitalization, it was noted that patient LDH continues to increase , there is a drop in her blood counts, and was also noted to have a high ferritin level. Her fevers have persisted and continue and is s/p bone marrow biopsy and s/p lymph node biopsy today. There is a high possiblity of HLH, however unclear whether viral, autoimmune, hematological or infectious. Patient to be transferred to [facility] for further workup. She has been accepted to [facility], Hematology/Oncology floor. Accepting physician is Dr.Kira Cesar. Awaiting bed availability. ID/Hematology/Oncology: Fever of unknown origin/rule Febrile again today, WBC trending up, tacycardia persists, fevers persist HLH Infectious vs. lymphoma vs. 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, ferritin >60K, enlarged spleen, fevers Bone marrow biopsy results pending, s/p lymph node biopsy today Oncology following, discussed case ID following, remains on antibiotics: Doxycycline and Ertapenem Transfer to [facility] initiated, transfer form and requested paper work sent to [facility] Anemia, likely chronic one marrow biopsy results pending CBC dropped today 6.1/21.5 Patient to get 2 units of prbc, but she is having fevers OK to give blood with fevers as patient hmg/hct are low, sleep manager aware of fevers Give tylenol 650mg before transfusion and monitor Give Lasix 40mg after 1st unit of blood. Cardiology: Hypertension, controlled Continue atenolol Monitor in the setting of sepsis Endocrine: NIDDM, monitor Novolog sliding scale coverage Monitor BGMs F.E.N Fluids: NS @ 42cc/hr, after the blood transfusion, keep patient well hydrated as LD increasing Electrolytes: repleted Nutrition: diabetic diet Prophy: DVT: SCDS, Hold anticoagulation s/p lymph node biopsy GI: Protonix Disposition: Transfer to [facility]. Transfer paper work completed. Accepting physician is noted above. Patient is a full code. Visit type - Emergency Visit Emergency Visit: Yes ED Registration Date: 04/10/17 Care time: The patient presented to the Emergency Department on the above date and was hospitalized for further evaluation of their emergent condition. - New Patient This patient is new to me today: No - Critical Care Critical Care patient: No - Discharge Referral Referred to [facility] No
[2017-04-15] MEDS ORDERED: BUPIVACAINE HCL/PF 0.5% (5MG/ML) 10 ML VIAL IJ ONE (12:05)
[2017-04-15] MEDS ORDERED: LIDOCAINE HCL 1%, 10 MG/ML (20ML VIAL) INF ONE (12:05)
--- NOTE | 2017-04-15 12:31 | PN ---
Progress Note, Physician History of Present Illness: patient continues to be weak planned for ln biopsy today and transfusion still with fever wbc marginally low - Current Medication List Current Medications: Active Medications Al Hydroxide/Mg Hydroxide (Mylanta Oral Suspension -) 30 ml PO Q6H PRN PRN Reason: DYSPEPSIA Last Admin: 04/10/17 16:18 Dose: 30 ml Albuterol/Ipratropium (Duoneb -) 1 amp NEB RQID [facility] Last Admin: 04/15/17 11:11 Dose: 1 amp Allopurinol (Zyloprim -) 300 mg PO DAILY [facility] Last Admin: 04/15/17 09:29 Dose: Not Given Atenolol (Tenormin -) 100 mg PO DAILY [facility] Last Admin: 04/15/17 09:29 Dose: Not Given Ciprofloxacin (Ciloxan 0.3% Eye Drops -) 2 drop OU Q4HWA [facility] Last Admin: 04/15/17 09:33 Dose: 2 drop Fentanyl (Sublimaze Injection -) 25 mcg IVPUSH [id number] PRN PRN Reason: PAIN-PACU ORDER X 4 DOSES ONLY Doxycycline Hyclate 100 mg/ (Dextrose) 100 mls @ 50 mls/hr IVPB BID [facility] Last Admin: 04/15/17 09:32 Dose: 50 mls/hr Ertapenem 1 gm/ Sodium (Chloride) 100 mls @ 100 mls/hr IVPB DAILY [facility] PRN Reason: Protocol Last Admin: 04/14/17 11:06 Dose: 100 mls/hr Sodium Chloride (Normal Saline -) 1,000 mls @ 42 mls/hr IV ASDIR [facility] Last Admin: 04/14/17 18:41 Dose: 42 mls/hr Ibuprofen (Motrin -) 600 mg PO Q6H PRN PRN Reason: FEVER Last Admin: 04/14/17 23:14 Dose: 600 mg Insulin Aspart (Novolog Vial Sliding Scale -) 1 vial SQ ACHS [facility] PRN Reason: Protocol Last Admin: 04/15/17 06:02 Dose: Not Given Ondansetron HCl (Zofran Injection) 4 mg IVPUSH Q6H PRN PRN Reason: NAUSEA AND/OR VOMITING Pantoprazole Sodium (Protonix -) 40 mg PO DAILY [facility] Last Admin: 04/15/17 09:28 Dose: Not Given Sodium Chloride ([place] Nasal [place] -) 2 spray NS BID PRN PRN Reason: NASAL CONGESTION - Objective Vital Signs: Vital Signs Temperature 100 F H 04/15/17 11:06 Pulse Rate 90 04/15/17 11:06 Respiratory Rate 20 04/15/17 11:06 Blood Pressure 98/56 04/15/17 11:06 O2 Sat by Pulse Oximetry (%) 94 L 04/14/17 21:00 Constitutional: Yes: Other (weak) Cardiovascular: Yes: Regular Rate and Rhythm Respiratory: Yes: Regular, CTA Bilaterally Gastrointestinal: Yes: Normal Bowel Sounds, Soft Musculoskeletal: Yes: WNL Extremities: Yes: WNL Neurological: Yes: Alert, Oriented Labs: CBC, BMP 04/15/17 06:30 04/15/17 06:30 INR, PTT INR 1.32 (0.82-1.09) H 04/15/17 06:30 Fibrinogen 304.0 mg/dL (238-498) 04/11/17 06:30 Assessment/Plan fever weakness dysuria r/o malaria and other parasite dengue lymphoma malignancy leukocytosis i think her fever and wbc are because of her primary disease no infection as far as i think plan continue supportive measures rest as per onco will stop abx after the biopsy rest as per the teams
--- NOTE | 2017-04-15 13:09 | SURG ---
Surgery Cylinder Worker Note Cylinder Worker: Patti Cast PA-C Date of Service: 04/15/17 Diagnosis: generalized lymphedema Procedure: Right axillary node biopsy I was present for the entirety of the operative procedure. For further detail, please refer to operative report. Visit type - Case Type Case Type: ED Admission - Emergency Emergency Visit: Yes ED Registration Date: 04/10/17 Care time: The patient presented to the Emergency Department on the above date and was hospitalized for further evaluation of their emergent condition. - New patient This patient is new to me today: Yes Date on this admission: 04/15/17
--- NOTE | 2017-04-15 13:09 | OP ---
<Patti Cast - Last Filed: 04/15/17 13:07> Operative Note - Note: Operative Date: 04/15/17 Pre-Operative Diagnosis: generalized lymphedema Operation: right axillary lymph node biopsy Findings: enlarged axillary lymph node Post-Operative Diagnosis: Same as Pre-op Surgeon: Last Buckner Yard Associate: Patti Cast Anesthesia: Local, MAC Specimens Removed: axillary lymph node x 2 Estimated Blood Loss (mls): 10 Fluid Volume Replaced (mls): 200 Operative Report Dictated: Yes <Last Buckner - Last Filed: 04/17/17 08:03> Operative Note - Note: Pre-Operative Diagnosis: generalized lymphadenopathy
[2017-04-15] MEDS ORDERED: SODIUM CHLORIDE 1,000 ML IV SCH ×2 (13:15→13:30)
[2017-04-15] MEDS ORDERED: SODIUM CHLORIDE NASAL SPRAY 44 ML BOTTLE NS PRN (13:30)
[2017-04-15] MEDS ORDERED: MAG HYDROX/AL HYDROX/SIMETH 30 ML UNIT-DOSE CUP PO PRN (13:30)
[2017-04-15] MEDS ORDERED: MAGNESIUM OXIDE 400 MG TABLET (FP) PO SCH (13:30)
[2017-04-15] MEDS: ERTAPENEM SODIUM 1 GM in SODIUM CHLORIDE 100 ML IVPB SCH (15:31)
[2017-04-15] MEDS: IBUPROFEN 600 MG TABLET (FP) PO PRN (15:32)
--- NOTE | 2017-04-15 15:48 | CONSULT ---
Consultation: REQUESTING PROVIDER: Dr. De Luna CONSULT REQUEST: We have been asked to medically evaluate this patient for interstitial lung disease and cough. HISTORY OF PRESENT ILLNESS: This is a 56 year old female with a past medical history of fever of unknown origin that was attributed to the [place] virus, diagnose 01/2017. She is once again experiencing fevers and chills since February. As per daughter who is at bedside, giving history, patient was in the [place] since February. With continuos fevers in [place], daughter flew mother home and brought her to [facility]. Since her hospital stay she is worked up for various infectious etiology. So far, influenza, blood and sputum culture is negative. Chest CT on showing enlarged lymph nodes throughout mediastinum, with bilateral axillary , with patchy RUL opacity. Pending studies include bone marrow biopsy and axillary biopsy. Initial labs suspicious for proliferative lymphodisorder. Patient seen by hematology; rule out hemophagocytic lymphohistocytosis. Since Friday, daughter states that patient has had cough with greyish sputum production. She has had intermittent fevers since admission. REVIEW OF SYSTEMS: CONSTITUTIONAL: Positive: fever, chills, generalized weakness, malaise, loss of appetite, Absent: fever, chills, Absent: rhinorrhea, nasal congestion, throat pain, throat swelling, difficulty swallowing, mouth swelling, ear pain, eye pain, visual changes CARDIOVASCULAR: Positive: peripheral edema Absent: chest pain, syncope, palpitations, irregular heart rate, lightheadedness , RESPIRATORY: Positive:cough, shortness of breath, dyspnea with exertion, Absent: orthopnea, wheezing, stridor, hemoptysis GASTROINTESTINAL: Absent: abdominal pain, abdominal distension, nausea, vomiting, diarrhea, constipation, melena, hematochezia GENITOURINARY: Absent: dysuria, frequency, urgency, hesitancy, hematuria, flank pain, genital pain MUSCULOSKELETAL: Absent: myalgia, arthralgia, joint swelling, back pain, neck pain SKIN: Absent: rash, itching, pallor HEMATOLOGIC/IMMUNOLOGIC: Absent: easy bleeding, easy bruising, lymphadenopathy, frequent infections ENDOCRINE: Absent: unexplained weight gain, unexplained weight loss, heat intolerance, cold intolerance NEUROLOGIC: Absent: headache, focal weakness or paresthesias, dizziness, unsteady gait, seizure, mental status changes, bladder or bowel incontinence PSYCHIATRIC: Absent: anxiety, depression, suicidal or homicidal ideation, hallucinations. PHYSICAL EXAMINATION Vital Signs - 24 hr 04/14/17 04/14/17 04/14/17 15:36 16:50 20:00 Temperature 98.2 F 98.6 F 98.1 F Pulse Rate 83 90 84 Respiratory 18 20 18 Rate Blood Pressure 92/50 95/53 99/61 O2 Sat by Pulse Oximetry (%) 04/14/17 04/15/17 04/15/17 21:00 02:00 06:00 Temperature 100.8 F H 100.0 F H Pulse Rate 86 87 Respiratory 18 18 Rate Blood Pressure 96/55 99/54 O2 Sat by Pulse 94 L Oximetry (%) 04/15/17 04/15/17 04/15/17 09:00 09:27 11:06 Temperature 99.6 F 100 F H Pulse Rate 96 H 90 Respiratory 20 20 Rate Blood Pressure 84/49 98/56 O2 Sat by Pulse 96 Oximetry (%) 04/15/17 04/15/17 04/15/17 12:57 13:15 13:30 Temperature 100.7 F H Pulse Rate 107 H 96 H 100 H Respiratory 22 21 13 Rate Blood Pressure 102/64 101/54 109/60 O2 Sat by Pulse 98 100 98 Oximetry (%) 04/15/17 04/15/17 04/15/17 13:45 14:17 14:57 Temperature 100.0 F H 98.9 F 98.9 F Pulse Rate 101 H 111 H 111 H Respiratory 26 H 22 18 Rate Blood Pressure 104/59 99/48 100/49 O2 Sat by Pulse 95 Oximetry (%) 04/15/17 15:24 Temperature 102.9 F H Pulse Rate 106 H Respiratory 20 Rate Blood Pressure 98/42 O2 Sat by Pulse Oximetry (%) GENERAL: laying in bed diaphoretic, very lethargic HEAD: Normal with no signs of trauma. EYES: Pupils equal, round and reactive to light, extraocular movements intact, sclera anicteric, conjunctiva clear. No lid lag. LUNGS: scatter rhonchi throughout bilateral lung tay , wheezing; bilateral crackles HEART: Regular rate and rhythm, normal S1 and S2 without murmur, rub or gallop. ABDOMEN: Soft, nontender, not distended, normoactive bowel sounds, no guarding, no rebound, no masses. No hepatomegaly or splenomegaly. MUSCULOSKELETAL: Normal range of motion at all joints. No bony deformities or tenderness. No CVA tenderness. UPPER EXTREMITIES: 2+ pulses, warm, well-perfused. No cyanosis. No clubbing. Cap refill <2 seconds. No peripheral edema. LOWER EXTREMITIES: 2+ pulses, warm, well-perfused. No calf tenderness. bilateral 3+ pitting edema NEUROLOGICAL: AAOx3; very lethargic Laboratory Results - last 24 hr 04/11/17 04/14/17 04/14/17 06:30 17:45 21:16 WBC RBC Hgb Hct MCV MCH MCHC RDW Plt Count MPV Neutrophils % Neutrophils % (Manual) Band Neutrophils % Lymphocytes % Lymphocytes % (Manual) Monocytes % (Manual) Eosinophils % (Manual) Basophils % (Manual) Myelocytes % (Man) Promyelocytes % (Man) Nucleated RBC % Metamyelocytes Hypochromia Platelet Estimate Platelet Comment Polychromasia Poikilocytosis Anisocytosis Macrocytosis Tear Drop Cells Ovalocytes PT with INR INR PTT (Actin FS) Sodium Potassium Chloride Carbon Dioxide Anion Gap BUN Creatinine Creat Clearance w eGFR POC Glucometer 108 98 Random Glucose Uric Acid Calcium Magnesium Total Bilirubin AST ALT Alkaline Phosphatase LD Total Total Protein Albumin Globulin 3.3 Beta Globulins 1.0 NARAYAN & SPEP Interp Total Protein (NARAYAN) 5.2 L Albumin (NARAYAN) 1.9 L Albumin/Globulin (NARAYAN) 0.6 L Ymxao-9-Vqdjaqghv NARAYAN 0.3 Bbkda-1-Vdeszihcv NARAYAN 0.8 Gamma Globulins (NARAYAN) 1.2 NARAYAN M-Primitivo Not observed NARAYAN Comments IEP IgG 1314 IEP IgA 352 IEP IgM 147 Blood Type Antibody Screen Crossmatch 04/15/17 04/15/17 04/15/17 05:45 06:30 06:30 WBC 20.1 H RBC 2.64 L Hgb 6.8 L* D Hct 21.5 L D MCV 81.3 MCH 25.9 MCHC 31.9 L RDW 16.8 H Plt Count 118 L MPV 8.1 Neutrophils % No Result Required. Neutrophils % (Manual) 85.3 H D Band Neutrophils % 1.0 Lymphocytes % No Result Required. Lymphocytes % (Manual) 2.1 L D Monocytes % (Manual) 4 Eosinophils % (Manual) 1.0 Basophils % (Manual) 0.0 Myelocytes % (Man) 4 H Promyelocytes % (Man) 0 Nucleated RBC % 4 H Metamyelocytes 1 Hypochromia 1+ Platelet Estimate Decreased Platelet Comment Present Polychromasia 2+ Poikilocytosis 1+ Anisocytosis 2+ Macrocytosis 1+ Tear Drop Cells 1+ Ovalocytes 1+ PT with INR INR PTT (Actin FS) Sodium 141 Potassium 3.5 Chloride 109 H Carbon Dioxide 21 Anion Gap 11 BUN 6 L Creatinine 0.5 L Creat Clearance w eGFR > 60 POC Glucometer 93 Random Glucose 84 Uric Acid 2.1 L Calcium 7.5 L Magnesium 1.7 L Total Bilirubin 0.7 D AST 188 H ALT 49 Alkaline Phosphatase 90 LD Total 1404 H Total Protein 5.0 L Albumin 1.5 L Globulin Beta Globulins NARAYAN & SPEP Interp Total Protein (NARAYAN) Albumin (NARAYAN) Albumin/Globulin (NARAYAN) Dlcvu-1-Eavcidydz NARAYAN Rxrup-3-Hlxhvqlwq NARAYAN Gamma Globulins (NARAYAN) NARAYAN M-Primitivo NARAYAN Comments IEP IgG IEP IgA IEP IgM Blood Type Antibody Screen Crossmatch 04/15/17 04/15/17 04/15/17 06:30 09:55 11:17 WBC RBC Hgb Hct MCV MCH MCHC RDW Plt Count MPV Neutrophils % Neutrophils % (Manual) Band Neutrophils % Lymphocytes % Lymphocytes % (Manual) Monocytes % (Manual) Eosinophils % (Manual) Basophils % (Manual) Myelocytes % (Man) Promyelocytes % (Man) Nucleated RBC % Metamyelocytes Hypochromia Platelet Estimate Platelet Comment Polychromasia Poikilocytosis Anisocytosis Macrocytosis Tear Drop Cells Ovalocytes PT with INR 14.90 H INR 1.32 H PTT (Actin FS) 32.0 Sodium Potassium Chloride Carbon Dioxide Anion Gap BUN Creatinine Creat Clearance w eGFR POC Glucometer 110 Random Glucose Uric Acid Calcium Magnesium Total Bilirubin AST ALT Alkaline Phosphatase LD Total Total Protein Albumin Globulin Beta Globulins NARAYAN & SPEP Interp Total Protein (NARAYAN) Albumin (NARAYAN) Albumin/Globulin (NARAYAN) Dsqms-4-Qptrnfgna NARAYAN Crobz-2-Skbcdundz NARAYAN Gamma Globulins (NARAYAN) NARAYAN M-Primitivo NARAYAN Comments IEP IgG IEP IgA IEP IgM Blood Type O POSITIVE Antibody Screen Negative Crossmatch See Detail Active Medications Generic Name Dose Route Start Last Admin Trade Name Freq PRN Reason Stop Dose Admin Al Hydroxide/Mg Hydroxide 30 ml 04/15/17 13:30 Mylanta Oral Suspension - PO Q6H PRN DYSPEPSIA Albuterol/Ipratropium 1 amp 04/15/17 16:00 Duoneb - NEB RQID JOAQUÍN Allopurinol 300 mg 04/16/17 10:00 Zyloprim - PO DAILY JOAQUÍN Atenolol 100 mg 04/16/17 10:00 Tenormin - PO DAILY JOAQUÍN Ciprofloxacin 2 drop 04/15/17 14:00 04/15/17 14:36 Ciloxan 0.3% Eye Drops - OU 2 drop Q4HWA JOAQUÍN Administration Doxycycline Hyclate 100 mg/ 100 mls @ 50 mls/hr 04/15/17 22:00 Dextrose IVPB BID JOAQUÍN Ertapenem 1 gm/ Sodium 100 mls @ 100 mls/hr 04/16/17 10:00 Chloride IVPB DAILY JOAQUÍN Protocol Sodium Chloride 1,000 mls @ 42 mls/hr 04/15/17 13:30 04/15/17 14:37 Normal Saline - IV 42 mls/hr ASDIR JOAQUÍN Administration Ibuprofen 600 mg 04/15/17 13:30 Motrin - PO Q6H PRN FEVER Insulin Aspart 1 vial 04/15/17 16:30 Novolog Vial Sliding Scale - SQ ACHS JOAQUÍN Protocol Pantoprazole Sodium 40 mg 04/16/17 10:00 Protonix - PO DAILY JOAQUÍN Sodium Chloride 2 spray 04/15/17 13:30 [place] Nasal [place] - NS BID PRN NASAL CONGESTION ASSESSMENT/PLAN: 56 year old female presented with fever if unknown origin, with hx of [place] virus, 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 Fever Lymphadenopathy Transaminitis Anemia DM -afb studies pending -biopsy pending -no pulmonary reason for steroids at this time; would not immune suppress if thought is infectious process -cont doxy and ertapenam -oxygen prn -duonebs prn -non specific bilateral infiltrates on chest CT; timing is unclea as there is no comparison CT scans to determine acute or chronic problem. However the patteren is not clearly consistent with ILD. -Main differential diagnosis: r/o infection vs inflammation Dispo: We will continue to follow the patient. Thank you for this consultative opportunity. 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 - New Patient This patient is new to me today: Yes Date on this admission: 04/15/17 - Critical Care Critical Care patient: No
--- NOTE | 2017-04-15 16:07 | PN ---
Progress Note (short form) - Note Progress Note: Spoke to ( [facility] attending) Given the LDH is increasing, drop in crit, platelets, high ferritin, Splenomegaly, continued fevers, and now she is s/p BMB , s/p axillary LN biopsy. High Possibility of HLH (?from?) Agreed to NW2 transfer ( [facility] Heme-[facility]alignancy floor). Accepting Physician : Dr.Kira Cesar. d/w Hospitalist JAVA WEBSPHERE DEVELOPER, Nurse on . will need to send all the medical reports Will need to send the BMB and axillary biopsy report , IL6 report at a later date once they are reported ,d/w our pathology too Problem List - Problems (1) Fever Code(s): R50.9 - FEVER, UNSPECIFIED (2) Transaminitis Code(s): R74.0 - NONSPEC ELEV OF LEVELS OF TRANSAMNS & LACTIC ACID DEHYDRGNSE (3) Lymphadenopathy Code(s): R59.1 - GENERALIZED ENLARGED LYMPH NODES (4) UTI (urinary tract infection) Code(s): N39.0 - URINARY TRACT INFECTION, SITE NOT SPECIFIED
[2017-04-15] MEDS ORDERED: FUROSEMIDE 40 MG/4 ML INJECTABLE VIAL IVPUSH ONE (16:30)
--- NOTE | 2017-04-15 18:11 | DS ---
Physical Exam: SUBJECTIVE: Patient seen and examined OBJECTIVE: Patient is alert and oriented x 3, she is able to make her own medical decisions , however she gets easily overwhelmed and defers to her daughter. Both patient and daughter agree to transfer to [facility] for continued workup. Dr. Alvarado spoke to Dr. Ojeda ( [facility] attending) and discussed case. Accepting physician is Dr. Carole Cesar. Patient is to get 2 units of blood today. Lasix 40mg to be given after 1st unit of prbc. All medical records, imaging, biopsy reports to be sent with patient. Patient is s/p excisional biopsy today with Dr. Buckner. Vital Signs Period Temp Pulse Resp BP Sys/Carcamo Pulse Ox Last 24 Hr 98.1 F-102.9 F 84-116 13-26 84-115/42-64 94-100 PHYSICAL EXAM GENERAL: The patient is awake, alert, and fully oriented, in no acute distress HEAD: Normal with no signs of trauma. EYES: PERRL, extraocular movements intact, sclera anicteric, conjunctiva clear. No ptosis. ENT: Ears normal, nares patent, oropharynx clear without exudates, moist mucous membranes. NECK: Trachea midline, full range of motion, supple. LUNGS: +crackles on left lung base, right lung diminished, lasix 40mg given yesterday, patient less edematous today. ABDOMEN: Soft, mildly distended, no abdominal pain, + bowel sounds EXTREMITIES: bilateral lower extremity edema, non pitting NEUROLOGICAL: Normal speech, 1 assist out of bed PSYCH: Normal mood, normal affect. LABS Laboratory Results - last 24 hr 04/11/17 04/14/17 04/15/17 06:30 21:16 05:45 WBC RBC Hgb Hct MCV MCH MCHC RDW Plt Count MPV Neutrophils % Neutrophils % (Manual) Band Neutrophils % Lymphocytes % Lymphocytes % (Manual) Monocytes % (Manual) Eosinophils % (Manual) Basophils % (Manual) Myelocytes % (Man) Promyelocytes % (Man) Nucleated RBC % Metamyelocytes Hypochromia Platelet Estimate Platelet Comment Polychromasia Poikilocytosis Anisocytosis Macrocytosis Tear Drop Cells Ovalocytes PT with INR INR PTT (Actin FS) Sodium Potassium Chloride Carbon Dioxide Anion Gap BUN Creatinine Creat Clearance w eGFR POC Glucometer 98 93 Random Glucose Uric Acid Calcium Magnesium Total Bilirubin AST ALT Alkaline Phosphatase LD Total Total Protein Albumin Globulin 3.3 Beta Globulins 1.0 NARAYAN & SPEP Interp Total Protein (NARAYAN) 5.2 L Albumin (NARAYAN) 1.9 L Albumin/Globulin (NARAYAN) 0.6 L Uzjcz-7-Qqlhdekbb NARAYAN 0.3 Zcleq-2-Jzoadhdhd NARAYAN 0.8 Gamma Globulins (NARAYAN) 1.2 NARAYAN M-Primitivo Not observed NARAYAN Comments IEP IgG 1314 IEP IgA 352 IEP IgM 147 Blood Type Antibody Screen Crossmatch 04/15/17 04/15/17 04/15/17 06:30 06:30 06:30 WBC 20.1 H RBC 2.64 L Hgb 6.8 L* D Hct 21.5 L D MCV 81.3 MCH 25.9 MCHC 31.9 L RDW 16.8 H Plt Count 118 L MPV 8.1 Neutrophils % No Result Required. Neutrophils % (Manual) 85.3 H D Band Neutrophils % 1.0 Lymphocytes % No Result Required. Lymphocytes % (Manual) 2.1 L D Monocytes % (Manual) 4 Eosinophils % (Manual) 1.0 Basophils % (Manual) 0.0 Myelocytes % (Man) 4 H Promyelocytes % (Man) 0 Nucleated RBC % 4 H Metamyelocytes 1 Hypochromia 1+ Platelet Estimate Decreased Platelet Comment Present Polychromasia 2+ Poikilocytosis 1+ Anisocytosis 2+ Macrocytosis 1+ Tear Drop Cells 1+ Ovalocytes 1+ PT with INR 14.90 H INR 1.32 H PTT (Actin FS) 32.0 Sodium 141 Potassium 3.5 Chloride 109 H Carbon Dioxide 21 Anion Gap 11 BUN 6 L Creatinine 0.5 L Creat Clearance w eGFR > 60 POC Glucometer Random Glucose 84 Uric Acid 2.1 L Calcium 7.5 L Magnesium 1.7 L Total Bilirubin 0.7 D AST 188 H ALT 49 Alkaline Phosphatase 90 LD Total 1404 H Total Protein 5.0 L Albumin 1.5 L Globulin Beta Globulins NARAYAN & SPEP Interp Total Protein (NARAYAN) Albumin (NARAYAN) Albumin/Globulin (NARAYAN) Kkegk-6-Ghkgebgcv NARAYAN Odxow-4-Kvilvnzcg NARAYAN Gamma Globulins (NARAYAN) NARAYAN M-Primitivo NARAYAN Comments IEP IgG IEP IgA IEP IgM Blood Type Antibody Screen Crossmatch 04/15/17 04/15/17 04/15/17 09:55 11:17 17:13 WBC RBC Hgb Hct MCV MCH MCHC RDW Plt Count MPV Neutrophils % Neutrophils % (Manual) Band Neutrophils % Lymphocytes % Lymphocytes % (Manual) Monocytes % (Manual) Eosinophils % (Manual) Basophils % (Manual) Myelocytes % (Man) Promyelocytes % (Man) Nucleated RBC % Metamyelocytes Hypochromia Platelet Estimate Platelet Comment Polychromasia Poikilocytosis Anisocytosis Macrocytosis Tear Drop Cells Ovalocytes PT with INR INR PTT (Actin FS) Sodium Potassium Chloride Carbon Dioxide Anion Gap BUN Creatinine Creat Clearance w eGFR POC Glucometer 110 93 Random Glucose Uric Acid Calcium Magnesium Total Bilirubin AST ALT Alkaline Phosphatase LD Total Total Protein Albumin Globulin Beta Globulins NARAYAN & SPEP Interp Total Protein (NARAYAN) Albumin (NARAYAN) Albumin/Globulin (NARAYAN) Njddt-3-Bgfqcqreo NARAYAN Wudfr-1-Cnswkpufh NARAYAN Gamma Globulins (NARAYAN) NARAYAN M-Primitivo NARAYAN Comments IEP IgG IEP IgA IEP IgM Blood Type O POSITIVE Antibody Screen Negative Crossmatch See Detail HOSPITAL COURSE: Date of Admission:04/10/17 Date of Discharge: 04/15/17 ASSESSMENT/PLAN: Patient is a 56 year old female with a significant past medical history of hypertension and diabetes mellitus. She had a previous hospitalization in November 2016 for fever of unknown origin and was reported to have had a possible chikungunya infection. Hospitalized in [facility] from mid-February to early March for same reason. She presents to [place] on 04/10/2017 with a diagnosis of fever. She as been pancultured. She is being followed by ID and Hematology Oncology. During her hospitalization, it was noted that patient LDH continues to increase , there is a drop in her blood counts, and was also noted to have a high ferritin level. Her fevers have persisted and continue. She is s/p bone marrow biopsy and s/p lymph node biopsy today. There is a high possibility of HLH, however unclear whether viral, autoimmune, hematological or infectious. Patient to be transferred to [facility] for further workup. She has been accepted to [facility], Hematology/Oncology floor. Accepting physician is Dr.Kira Cesar. Awaiting bed availability. ID/Hematology/Oncology: Fever of unknown origin/rule Febrile again today, WBC trending up, tacycardia persists, fevers persist HLH Infectious vs. lymphoma vs. 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, ferritin >60K, enlarged spleen, fevers Bone marrow biopsy results pending, s/p lymph node biopsy today Oncology following, discussed case ID following, remains on antibiotics: Doxycycline and Ertapenem Transfer to [facility] initiated, transfer form and requested paper work sent to [facility] Anemia, likely chronic one marrow biopsy results pending CBC dropped today 6.1/21.5 Patient to get 2 units of prbc, but she is having fevers OK to give blood with fevers as patient hmg/hct are low, 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 Cardiology: Hypertension, controlled Continue atenolol Monitor in the setting of sepsis Endocrine: NIDDM, monitor Novolog sliding scale coverage Monitor BGMs F.E.N Fluids: NS @ 42cc/hr, after the blood transfusion, keep patient well hydrated as LD increasing Electrolytes: repleted Nutrition: diabetic diet Prophy: DVT: SCDS, Hold anticoagulation s/p lymph node biopsy GI: Protonix Disposition: Transfer to [facility] likely tonight. Transfer paper work completed. Accepting physician is noted above. Patient is a full code. Minutes to complete discharge: 60 Discharge Summary Reason For Visit: FEVER Current Active Problems Dengue fever (Acute) Fever (Acute) Hyponatremia (Acute) Lymphadenopathy (Acute) Transaminitis (Acute) UTI (urinary tract infection) (Acute) Condition: Worsened - Instructions Diet, Activity, Other Instructions: Transfer to [facility] Medical Disposition: TRANSFER ACUTE CARE/OTHER HOSP - Home Medications Comprehensive Discharge Medication List: Ambulatory Orders Atenolol [Tenormin -] 100 mg PO DAILY #30 tablet 12/01/16 This patient is new to me today: No Emergency Visit: Yes ED Registration Date: 04/10/17 Care time: The patient presented to the Emergency Department on the above date and was hospitalized for further evaluation of their emergent condition. Critical Care patient: No - Discharge Referral Referred to [facility] Med [facility].: No
[2017-04-15] MEDS ORDERED: DOXYCYCLINE INJECTION 100 MG in DEXTROSE 5%-WATER - 100 ML IVPB SCH (22:00)
[2017-04-15] MEDS ORDERED: FUROSEMIDE 40 MG/4 ML INJECTABLE VIAL ONE (22:57)
[2017-04-16] MEDS: IBUPROFEN 600 MG TABLET (FP) PO PRN (02:20)
[2017-04-16 06:48] LABS: HEMATOCRIT 30.9 % (32.4-45.2); MCH 26.7 pg (25.7-33.7); MCHC 32.3 g/dl (32.0-36.0); MEAN CELL VOLUME 82.5 fl (80-96); MEAN PLT VOLUME 8.1 fl (7.5-11.1); PLATELET COUNT 108 K/MM3 (134-434); RBC 3.75 M/mm3 (3.60-5.2); RDW 15.9 % (11.6-15.6); WHITE BLOOD COUNT 29.6 K/mm3 (4.0-10.0)
[2017-04-16 07:13] LABS: ALBUMIN 1.6 g/dl (3.4-5.0); ANION GAP 10 (8-16); BLOOD UREA NITROGEN 8 mg/dL (7-18); CALCIUM 7.8 mg/dL (8.5-10.1); CHLORIDE 109 mmol/L (98-107); CO2 22 mmol/L (21-32); GLUCOSE,RANDOM 82 mg/dL (74-106); MAGNESIUM 1.7 mg/dL (1.8-2.4); POTASSIUM 3.4 mmol/L (3.5-5.1); SGOT/AST 228 U/L (15-37); SGPT/ALT 56 U/L (12-78); SODIUM 141 mmol/L (136-145)
[2017-04-16 07:15] LABS: ALK PHOS 104 U/L (45-117); BILIRUBIN,TOTAL 0.8 mg/dL (0.2-1.0); CREATININE 0.8 mg/dL (0.55-1.02); TOT PROT 5.6 g/dl (6.4-8.2)
--- NOTE | 2017-04-16 07:44 | PN ---
Progress Note (short form) - Note Progress Note: Surgery POD#1 right axillary node biopsy. Patient seen and examined at bedside resting comfrotably. Vital Signs Temp 99 F 04/16/17 06:23 Pulse 93 H 04/16/17 06:23 Resp 20 04/16/17 06:23 BP 90/44 04/16/17 06:23 Pulse Ox 95 04/15/17 21:00 Intake & Output 04/15/17 04/15/17 04/16/17 11:59 23:59 11:59 Intake Total 300 692 Balance 300 692 Intake: IV 300 242 Normal Saline - 1,000 ml 300 @ 42 mls/hr IV ASDIR JOAQUÍN Rx#:[id number] IVPB 100 Packed Cells 350 Other: Voiding Method Diaper Diaper # Unmeasured Voids Void 1 1 Bowel Movement Yes No # Bowel Movements 1 CBC, BMP 04/16/17 05:35 PE: resting comfrotably Unlabored resp on RA Right axilla dressing c/d/i, no edema or erythema in surrounding tissues, no evidence of d/c Moving all extremities without restriction Problem List - Problems (1) Lymphadenopathy Assessment/Plan: Surgical site clean and dry. Plan is for patient to be transferred to [facility] for further work up and management On behalf on Dr Buckner, thank you for the opportunity to participate in this patient's care. Code(s): R59.1 - GENERALIZED ENLARGED LYMPH NODES
[2017-04-16] MEDS: ALBUTEROL SO4 2.5/IPRATROPIUM 0.5 INH SOL 3 ML VIAL.NEB. NEB SCH (08:13)
[2017-04-16 08:37] VITALS: BP 85/51; PULSE 95; TEMP 98.6
--- NOTE | 2017-04-16 09:41 | OP ---
DATE OF OPERATION: 04/15/2017 PREOPERATIVE DIAGNOSIS: Lymphadenopathy of unknown origin. POSTOPERATIVE DIAGNOSIS: Lymphadenopathy of unknown origin. PROCEDURE: Excisional biopsy, right axillary lymphadenopathy. SURGEON: Last Buckner MD TEACHER OF THE SIGHT IMPAIRED: Patti Cast PA-C ANESTHESIA: Local with IV sedation. OPERATIVE FINDINGS: There were 2 enlarged lymph nodes in the right axilla, in the deep right axilla, which were sent for pathological examination as well as for studies for acid-fast bacilli. The rest of the findings were unremarkable. DESCRIPTION OF PROCEDURE: The patient was placed on the operating table in supine position, and after the right axilla was prepped with ChloraPrep and draped in a sterile fashion, a time-out was taken. Local anesthesia consisting of 1% Xylocaine and 0.5% Marcaine both without epinephrine were injected into the operative field, and a transverse axillary skin incision was made with a scalpel and taken down through skin and subcutaneous tissues. The deep axilla was entered using electrocautery and blunt dissection, and self-retaining retractors were placed. Palpation revealed 2 distinctly enlarged lymph nodes, and they were bluntly dissected from the surrounding tissue and their pedicle clamped and the nodes excised and sent fresh for pathological examination as well as for studies for acid-fast bacilli. The pedicles were ligated with 3-0 Vicryl suture, and then hemostasis checked for and noted to be good. The wound was copiously irrigated with sterile saline, hemostasis verified again, and the incision closed in layers with interrupted 2-0 Vicryl for the deep fascia, interrupted 3-0 Vicryl for the deep dermis, and 4-0 Monocryl in a subcuticular continuous fashion to reapproximate the skin edges. Steri-Strips, fluffs, and dry sterile dressings were placed, and the procedure terminated at this point. The patient transferred to the post-anesthesia care unit in stable condition, awake and alert. ESTIMATED BLOOD LOSS: Minimal. DRAINS: None. SPECIMENS: Lymph nodes to Pathology and Microbiology. I, Last Buckner MD, was physically present in the operating room from the time the patient was placed on the operating table until she was transferred to the post-anesthesia care unit in my accompaniment. MD DICK James/[id number] MTDD
[2017-04-16] MEDS ORDERED: ALLOPURINOL 300 MG TABLET (FP) PO SCH (10:00)
[2017-04-16] MEDS ORDERED: ERTAPENEM SODIUM 1 GM in SODIUM CHLORIDE 100 ML IVPB SCH (10:00)
[2017-04-16] MEDS ORDERED: PANTOPRAZOLE 40 MG TABLET (FP) PO SCH (10:00)
[2017-04-16] MEDS ORDERED: ATENOLOL 50 MG TABLET (FP) PO SCH (10:00)
--- NOTE | 2017-04-17 09:37 | PATH ---
Surgical Pathology Report Patient Name: BARBARA DEVINE [facility]. Rec. #: [id number] /Age/Gender: 1960 (Age: 56) / F Account: [id number] Location: [facility] MED/SURG Taken: 04/11/2017 Received: 04/11/2017 Reported: 04/17/2017 Physicians: Gia Colindres M.D. Specimen(s) Received A: BONE MARROW BIOPSY B: BONE MARROW ASPIRATION SMEARSM 5 SLIDES C: BONE MARROW BLOOD 2 GREEN TOPS Clinical History Rule out hemophagocytosis syndrome HERBIE?, Enlarged spleen, increased ferritin, increased triglycerides Final Diagnosis A & B. 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 NO EVIDENCE OF INFILTRATIVE PROCESS. SLIGHT DYSERYTHROPOIESIS, SEE COMMENT. Comment: The morphologic findings are nonspecific. No significant hemophagocytosis is noted in the current sample; however, the diagnosis hemophagocytic syndrome is based on correlation with clinical and laboratory data are. Correlation with the results of the cytogenetic studies is also needed. Evolving myeloid neoplasm cannot be completely ruled out. This case was sent to Dr. Westley Jules from [facility], [place], [place] ([id number]) the diagnosis above reflects his opinion. See [facility]ge report ([id number]) for additional details. C. FLOW, FISH AND CYTOGENETIC STUDIES COMPREHENSIVE FLOW PANEL performed and interpreted at [facility], [place], [place] ([id number]) shows the following: INTERPRETATION: No atypical flow cytometric findings seen. MYELODYSPLASIA FISH PANEL performed and interpreted at [facility] in [place], [place] ([id number]) shows the following. INTERPRETATION: No evidence of deletion 5q or monosomy 5 is present. No evidence of deletion 7q or monosomy 7 is present. No evidence of trisomy 8 (+8) is present. No evidence of deletion 13q14 is present. No evidence of a rearrangement of 11q23. No evidence of a deletion of the p53 (17p13) locus. No evidence of deletion 20q12 is present. No BCR/ABL1 t(9;22) translocation is detected. See Emerge report ([id number] and [id number]) for additional details. Cytogenetic studies pending and will be reported separately. Electronically Signed Wen Ruffin M.D. Addendum Reported: 04/21/2017 Addendum Diagnosis CYTOGENETIC KARYOTYPE ANALYSIS performed and interpreted at [facility], [facility] ([id number]) shows the following: RESULTS: 46,XX [20] INTERPRETATION: Normal Karyotype Within the limits of the cytogenetic methods, the chromosomes had normal G-banding patterns with no evidence of an acquired clonal numerical or structural abnormality. This normal results does not rule out a neoplasm. Subtle rearrangements or the presence of an aberrant clone in a low proportion of cells cannot be ruled out. Correlation with other clinical and hematologic data is suggested. Analysis was performed on cells from an unstimulated tissue culture and a tissue culture that was stimulated with lymphoid mitogens. See Emerge report for additional details ([id number]) Wen Ruffin M.D. Gross Description A. Received in formalin, labeled with the patient's name and indicated on the requisition to be a bone marrow biopsy, are 2 rojas, cylindrical portions of bone measuring 0.2 and 1.4 cm in length and averaging 0.1 cm in diameter. The specimens display attached red-brown blood clot. The specimens are submitted in toto in one cassette, following decalcification. B. Received are 5 bone marrow aspiration smear slides. C. Received are 2 green top tubes of bone marrow blood which are sent to [facility]. 04/12/2017 saudi04/12/2017
--- NOTE | 2017-04-18 17:44 | PATH ---
Surgical Pathology Report Patient Name: BARBARA DEVINE Med. Rec. #: [id number] /Age/Gender: 1960 (Age: 56) / F Account: [id number] Location: [facility] MED/SURG Taken: 04/15/2017 Received: 04/15/2017 Reported: 04/18/2017 Physicians: MD Naty Mckeon ACNP Specimen(s) Received RIGHT AXILLARY LYMPH NODE Clinical History Fever of unknown origin, r/o hemaphagocytosis Final Diagnosis AXILLARY LYMPH NODE, RIGHT, EXCISION: LYMPH NODE WITH DERMATOPATHIC CHANGE AND MIXED INFLAMMATORY INFILTRATE, SEE COMENT. NO EVIDENCE OF A LYMPHOPROLIFERATIVE PROCESS. Comment: No hemophagocytosis is seen; however, the diagnosis of hemophagocytic syndrome depends on the clinical and laboratory correlation. The findings also raise the possibility of drug/toxin reaction. Concurrent flow cytometric immunophenotyping shows no evidence of B or T-cell proliferative disorders ([id number]). Case sent to Dr. Westley Jules From [employer], the diagnosis above reflects his opinion ([id number]). See Emerge report ([id number] and [id number]) for additional details. Electronically Signed Wen Ruffin M.D. Gross Description Received fresh labeled "right axillary lymph node," is a 1.5 x 0.9 x 0.5 cm rojas irregular lymph node with attached fat. The specimen is bisected. A sales and marketing representative portion is placed in RPMI solution and sent for flow cytometry. The remainder of the specimen is entirely submitted in one cassette. 04/15/2017 saudi04/15/2017
== END 2017-04-16 08:31 | disposition short-term general hospital (02) | DRG 651 ==
LOC: JER 01:35 → UNDOADMOB 06:37 → JERBED 06:37 → INTOOBSV 06:37 → UNDOADMOB 08:52 → J8W 08:52 → JERBED 08:52 → J8W 11:46 → JERBED 11:46 → J8W 04-08 22:16 → INTOOBSV 04-10 12:43 → OBSVTOIN 04-10 12:43
PROVIDERS: ADMIT Internal Medicine; ATTEND Nurse Practitioner Acute Care
PROC: 07DR3ZX Extraction of Iliac Bone Marrow, Percutaneous Approach, Diagnostic (ICD-10-PCS; 2017-04-11)
PROC: 30233H1 Transfusion of Nonautologous Whole Blood into Peripheral Vein, Percutaneous Approach (ICD-10-PCS; 2017-04-15)
PROC: 07B50ZX Excision of Right Axillary Lymphatic, Open Approach, Diagnostic (ICD-10-PCS; principal; 2017-04-15 11:30)
DX: D76.1 Hemophagocytic lymphohistiocytosis (principal); R50.9 Fever, unspecified; J84.9 Interstitial pulmonary disease, unspecified; D72.1 Eosinophilia; T50.8X5A Adverse effect of diagnostic agents, initial encounter; R09.02 Hypoxemia; E78.1 Pure hyperglyceridemia; E87.1 Hypo-osmolality and hyponatremia; I10 Essential (primary) hypertension; E11.9 Type 2 diabetes mellitus without complications; R74.0 Nonspecific elevation of levels of transaminase and lactic acid dehydrogenase [LDH]; D64.9 Anemia, unspecified; R59.1 Generalized enlarged lymph nodes; R07.89 Other chest pain; K21.9 Gastro-esophageal reflux disease without esophagitis; N39.0 Urinary tract infection, site not specified; Z86.19 Personal history of other infectious and parasitic diseases; Z87.39 Personal history of other diseases of the musculoskeletal system and connective tissue; Z79.4 Long term (current) use of insulin
CPT/HCPCS: 36415; 36430; 70450-TC; 70553-TC; 71045-TC-FY; 71260-TC; 74177-TC; 76536-TC; 76705-TC; 76775-TC; 76856-TC; 76882; 80048; 80053; 80074; 80076; 81003; 81015; 82436; 82550; 82570; 82607; 82728; 82746; 82784; 82803; 82962; 83010; 83520; 83605; 83615; 83735; 83880; 83935; 84100; 84132; 84133; 84155; 84165; 84300; 84443; 84478; 84484; 84550; 85025; 85044; 85384; 85610; 85651; 85730; 86038; 86140; 86334; 86431; 86790; 86850; 86900; 86901; 86922; 87040; 87070; 87086; 87102; 87116; 87205; 87206; 87207; 87210; 87804; 88300-TC; 88305-TC; 88311-TC; 88313-TC; 93005; 93010; 93970-TC; 94010; 94640; 94760; 97116-GP; 97161-GP; 99282-25; G0378; J0131; J7030; P9038; P9058